=== PATIENT | male | born 1970 | race Caucasian/White ===

== ENCOUNTER 2025-06-21 15:00 | Emergency (ER) | payer OTHER, SELFPAY ==
--- NOTE | ~2025-06-21 | XR_ITS ---
XR lumbar spine 2-3V Indication: Low back pain; no injury Comparison: None Findings: Dextroconvex scoliosis. Moderate loss of vertebral height throughout. No acute fracture or subluxation. Moderate to severe loss of disc height throughout. Soft tissues unremarkable Impression: No acute abnormality. Reviewed, dictated and finalized at location P. Impression: No acute abnormality.
[2025-06-21 15:30] VITALS: BP 155/83; PULSE 97; RESP 16; TEMP 36.9; O2SAT 97
--- NOTE | 2025-06-21 15:48 | ED_ITS ---
HPI - Back Pain/Injury General Chief Complaint: Back Pain/Injury Stated Complaint: back pain. worse today Time Seen by Provider: 06/21/25 15:48 Focused HPI: Severe back pain for the past four days. He first noted that it was hurting while sitting at rest. He is currently residing at a prison and thinks he may have strained his back attempting to get dressed. Pain is in low back, is present all the time and does not get better. It stays in one spot without radiation. No urinary symptoms of burning, urgency, frequency. No rad iation of pain down the legs. No loss of bowel or bladder control. No saddle anesthesia. He denies any acute injury/trauma or enciting event. The doctor at the prison prescribed a muscle relaxer and a lidocaine patch that do not help the pain at all. GENERAL: Well-appearing, well-nourished, and in no acute distress. HEAD: Normocephalic, atraumatic NEURO: ?Alert and oriented x3. Grossly intact, non-focal exam. Knee jerk reflexes intact at 2+ bilaterally. No clonus. Intact sensation. EXTREMITIES: Diabetic wound with post op shoe present. MUSCULOSKELETAL: Low back pain, both midline lumbar and paraspinal without palpable spasm. Patient screened in triage and initial orders placed.? ?Additional care and disposition to be based upon?diagnostic testing and treatment. Source: patient Mode of arrival: ambulatory Limitations: no limitations History of Present Illness HPI Narrative: This is a pleasant 54 year old male pt who comes to the ER from a local prison where he resides with complaints of low back pain. No acute injury/trauma or enciting events. Pt has pain in the low back and the muscle relaxers and lidoderm patches that are being used at the prison is not relieving his pain. He has no loss of bowel or bladder control and he has no saddle anesthesia. Movement makes the pain worse. No CP/Dyspnea/N/V. Related Data Allergies Allergy/AdvReac Type Severity Reaction Status Date / Time No Known Allergies Allergy Verified 06/21/25 15:04 Review of Systems Review of Systems: All systems reviewed & are unremarkable except as noted in HPI and below Exam Const: General: healthy appearing, no acute distress and alert Nutritional Appearance: well nourished Orientation/consciousness: patient oriented x3 Limitations: no limitations HENMT: Head: normal to inspection Mouth: Yes Normal oral and palatal mucosa present and Yes moist mucous membranes Eyes: Conjunctivae: conjunctivae normal Neck: Neck: normal visual inspection, no lymphadenopathy and no meningeal signs Other: Full active range of motion in a supple manner Chest: Other: Non tender to palpation. Resp: Effort & Inspection: normal respiratory effort Auscultation: clear to auscultation bilaterally Cardio: Rate: regular rate Rhythm: regular rhythm Heart sounds: no murmurs GI: GI Palp: Yes Soft to palpation and No Tenderness to palpation present (GI) Auscultation: normal bowel sounds Back/Spine/Pelvis: Back: no CVA tenderness Other: Lumbar paraspinal tenderness to palpation without spasm. He has no midline tenderness/stepoff/crepitus/edema. Skin: General skin exam: normal color Rashes: no rashes Wounds: no wounds Neuro: General: patient oriented x3, moves all extremities, no meningeal signs and no focal motor deficits Speech: normal speech Gait exam (Neuro): Normal gait present Extrem: General: normal to inspection, no clubbing, cyanosis or edema and no pedal edema Psych: Mental Status: mental status grossly normal Affect: normal affect Course Course Emergency Course: Differential diagnosis includes but not limited to: Lumbar spondylosis, low back pain, spondylolisthesis, muscle spasm VSS Imaging was performed with L-spine xray and is without any acute abnormality. Pt was medicated for pain and is stable for discharge to home at this time. He is advised to continue with his lidoderm patches, continue with muscle relaxers and I will give a limited amount of Lancing to take at home. Discharged at this time in stable condition. Vital Signs Vital signs: Vital Signs Temperature 98.4 F 06/21/25 15:30 Pulse Rate 97 06/21/25 15:30 Respiratory Rate 16 06/21/25 15:30 Blood Pressure 155/83 H 06/21/25 15:30 Pulse Oximetry 97 06/21/25 15:30 Oxygen Delivery Room Air 06/21/25 15:30 Temperature 98.4 F 06/21/25 15:30 Pulse Rate 97 06/21/25 15:30 Respiratory Rate 16 06/21/25 15:30 Blood Pressure 155/83 H 06/21/25 15:30 Pulse Oximetry 97 06/21/25 15:30 Oxygen Delivery Room Air 06/21/25 15:30 MDM - Back Pain/Injury MDM Narrative Medical decision making narrative: See ED Course Lab Data Labs: Lab Results 06/21/25 Range/Units 17:18 Urine Color Pending Urine Appearance Pending Urine pH Pending Ur Specific [place] Pending Urine Protein Pending Urine Glucose (UA) Pending Urine Ketones Pending Ur Blood (Man) Pending Urine Nitrate Pending Urine Bilirubin Pending Urine Urobilinogen Pending Leukocyte Esterase Rfl Pending Imaging Data Radiologist's impression: ITS Impressions Lumbar Spine X-Ray 06/21/25 16:30 Impression: No acute abnormality. Discharge Plan Discharge Clinical Impression: Strain of lumbar region Patient Disposition: SNF Condition: Stable Instructions: Back Pain (ED) Additional Instructions: Please take all medications as ordered. Follow up with PCP in the next few days. If any new or worsening symptoms, return to the ER. Patient Language: Montenegrin Prescriptions: New hydrocodone-acetaminophen 5-325 mg tablet 1 tablet PO Q6H PRN (Reason: pain) 3 Days Qty: 12 0RF Follow-up/Referrals: PHYSICIAN NOT ON STAFF,NONSTAFF [Primary Care Provider] Stand Alone Forms: Long-Term Discharge Time of Disposition: 17:54
--- OUTSIDE RECORDS SUMMARY | 2025-06-21 16:38 | XMS_ITS | Clinical Summary ---
Author Organization [facility] Address [address] [place] [address] Care Team Providers Care Churn Driller Helper Name Role Phone Diaz Khoury CLARK DRIVER Unavailable [phone] Diaz Khoury CLARK DRIVER Unavailable [phone] Dalton Mahoney MD Primary Care Provi jaden Allergies No known active allergies Medications metFORMIN (GLUCOPHAGE) 1,000 mg tablet Take 1 tablet (1,000 mg total) by mouth 2 (two) times a day with meals Active naproxen (NAPROSYN) 500 mg tablet Take 1 tablet (500 mg total) by mouth 2 (two) times a day with meals 30 tablet 1 Active miconazole 2 % cream Application Site: feet and between the toes (Description and Location) 9 Active glucagon 1 mg injection 1 Active atorvastatin (LIPITOR) 40 mg tablet Take 1 tablet (40 mg total) by mouth daily 30 tablet 11 5 04/20/20 26 Active insulin glargine 100 unit/mL (3 mL) pen for injection Inject 24 Units under the skin nightly 5 Active insulin lispro (HumaLOG, ADMELOG) 100 unit/mL pen for injectionIndica tions:type 2 diabetes mellitus Inject 8 Units under the skin 3 (three) times a day with meals 5 Active blood-glucose meter kit Use as directed. 1 kit 5 Active lancets misc Use as directed up to 4 times a day. 100 each 1 5 Active OneTouch Verio test strips strip Use as directed up to four times a day. 100 each 1 5 Active alcohol swabs (Alcohol Wipes) pads, medicated Use as directed. 100 each 5 Active amoxicillin (AMOXIL) 500 mg tablet/capsuleI ndications:Bone /Joint Infection Take 1 tablet/capsule (500 mg total) by mouth every 12 (twelve) hours for 28 days 56 tablet/capsu le 5 07/01/20 25 Active cefTRIAXone (ROCEPHIN) syringeIndicati ons:Skin/Soft Tissue Infection Infuse 20 mL (2,000 mg total) IV daily for 5 minutes at 240 mL/hr 42 Syringe 5 05/28/20 25 metroNIDAZOLE (FLAGYL) 500 mg tabletIndicatio ns:Bone/Joint Infection Take 1 tablet (500 mg total) by mouth 2 (two) times a day 84 tablet 5 05/27/20 25 Active Problems Problem Noted Date Diagnosed Date Reduced mobility 04/11/2025 Acute hematogenous osteomyelitis of right foot 0 04/10/2025 Pseudohyponatremia 04/08/2025 History of DVT (deep vein thrombosis) 04/08/2025 Type 2 diabetes mellitus with hyperglycemia 03/26 Diabetic neuropathy associat ed with type 2 diabetes mellitus 04/08/2025 Normocytic anemia 04/08/2025 Social problem 04/08/2025 Mild protein-calorie malnutrition 04/08/2025 Foot infection 04/07/2025 Family history of colon cancer in mother 021 Overview (07/03/2021): Added automatically from request for surgery [id number] Positive colorectal cancer screening using Colog uard test 07/03/2021 Overview (07/03/2021): Added automatically from request for surgery [id number] Encounter for screening colonoscopy 07/03/2021 Overview (07/03/2021): Added automatically from request for surgery [id number] Hypoglycemia 06/15/2019 Dyslipidemia 03/10/2019 Hypomagnesemia 02/07/2019 Thrombocytopenia 02/07/2019 Cellulitis of left lower extremity 02/06/2019 Onychomycosis of left great toe 02/06/2019 Chronic deep vein thrombosis (DVT) of femoral vein of left lower extremity 05/26/2017 Chronic deep vein thrombosis (DVT) of popliteal vein of left lower extremity 05/26/2017 Class 1 obesity due to exces s calories with serious comorbidity and body mass index (BMI) of 33.0 to 33.9 in adult 05/26/2017 Supratherapeutic INR 05/26/2017 Type 2 diabetes mellitus wit h diabetic polyneuropathy, with long-term current use of insulin 05/26/2017 VTE (venous thromboembolism) 05/14/2017 Encounters Date Type Department Care Team Description 06/03/2025 1:15 PM CDT Office Visit [facility] [address] [place] [address] [address] [place] [address] Richard Hewitt MD Other acute osteomyelitis of right foot (Primary Dx); GBS (group B streptococcus) infection 06/02/2025 Orders Only [facility] [address] [place] [phone] ProviderMagalys MD 05/17/2025 Orders Only [facility] [address] [place] [phone] Magalys Valenzuela MD 05/13/2025 Orders Only [facility] [address] [place] [address] ProviderMagalys MD 04/20/2025 Documentation [facility] [address] [place] [address] [address] [place] [address] Lorna Vásquez LPN [facility] ([place]) 04/12/2025 1:00 PM CDT - 04/12/2025 2:00 PM CDT Surgery [facility] Operating Room [address] [place] [address] Oliver Espinosa, DPSusan DEBRIDEMENT OF INFECTED TISSUE AND BONE RIGHT FOOT 04/12/2025 12:56 PM CDT Anesthesia Event [facility] Operating Room [address] [place] [address] Roman Ling MD 04/07/2025 3:05 PM CDT - 04/19/2025 3:38 PM CDT Hospital Encounter [facility] IMU [address] [place] [address] Robert Arreola MD Richards, MD Emiliano Jimenez Jr., Deborah L F D, Viviana Peoples MD Foot infection (Primary Dx); Uncontrolled other specified diabetes mellitus with hyperglycemia; Acute hematogenous osteomyelitis of right foot (HCC); Type 2 diabetes mellitus with hyperglycemia, with long-term current use of insulin (HCC); Diabetic neuropathy associated with type 2 diabetes mellitus (HCC); Pseudohyponatremia; History of DVT (deep vein thrombosis); Normocytic anemia; Mild protein-calorie malnutrition; Social problem; Type 2 diabetes mellitus with diabetic polyneuropathy, with long-term current use of insulin (HCC); Cellulitis of left lower extremity Discharge Disposition: Discharge to SNF from Last 3 Months Surgical History Surgery Date Site/Laterality Comments CARDIAC STENT PLACEMENT Medical History Medical History Date Comments Deep vein thrombosis (HCC) Peripheral neuropathy Diabetes mellitus Family History Medical History Relation Name Comments Drug abuse Father Diabetes Mother Hypertension Mother Alcohol abuse Other Arthritis Other Cancer Other Clotting disorder Other Heart disease Other Stroke Other Relation Name Status Comments Father Mother Alive Other Social History Tobacco Use Types Packs/Day Years Used Date Smoking Tobacco: Never Smokeless Tobacco: Never Alcohol Use Standard Drinks/Week Comments No 0 (1 standard drink = 0.6 oz pur e alcohol) AUDIT-C Answer Date Recorded Q1: How often do you have a drink containing alc ohol? Never 04/20/2021 Average Number of Drinks Not on file 021 Frequency of Binge Drinking Not on file 03/27 Social Connection and Isolation Panel Answer Date Recorded In a typical week, how many times do you talk on the phone with family, friends, or neighbors? Once a week 04/08/2025 How often do you get together with friends or re latives? Once a week 04/08/2025 How often do you attend zoroastrian or adventist serv ices? Never 04/08/2025 Do you belong to any clubs o r organizations such as zoroastrian groups, unions, fraternal or athletic groups, or school groups? No 04/08/2025 How often do you attend meet ings of the clubs or organizations you belong to? Never 04/08/2025 Are you , , di vorced, , never , or living with a partner? Never 04/08/2025 Overall Financial Resource Strain (CARDIA) Answe r Date Recorded How hard is it for you to pa y for the very basics like food, housing, medical care, and heating? Very hard 04/08/2025 Hunger Vital Sign Answer Date Recorded Within the past 12 months, y ou worried that your food would run out before you got the money to buy more. Sometimes true Within the past 12 months, t he food you bought just didn't last and you didn't have money to get more. Sometimes true PRAPARE - Transportation Answer Date Re corded In the past 12 months, has l ack of transportation kept you from medical appointments or from getting medications? No 03/26 In the past 12 months, has l ack of transportation kept you from meetings, work, or from getting things needed for daily living? No 04/08/2025 Housing Stability Vital Sign Answer Tyler e Recorded In the last 12 months, was t here a time when you were not able to pay the mortgage or rent on time? No 04/08/2025 In the past 12 months, how m any times have you moved where you were living? 0 04/08/2025 At any time in the past 12 m onths, were you homeless or living in a longterm (including now)? No 04/08/2025 [facility] Utilities Answer Date Recorded In the past 12 months has e Access [employer], gas, oil, or water [employer] threatened to shut off services in your home? No 04/08/2025 Personal Safety Answer Date Recorded Have you ever been in or are you currently in a harmful physical or emotional relationship or is someone making you feel afraid or unsafe? 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 Gender Identity Not on file Sexual Orientation Not on file Obstetrics History Last Filed Vital Signs Vital Sign Reading Time Taken Comments Blood Pressure 125/72 04/19/2025 11:00 AM CDT Pulse 83 04/19/2025 11:00 AM CDT Temperature 36.1 C (97 F) 06/03/2025 1:32 PM CDT Respiratory Rate 18 04/19/2025 11:00 AM CDT Oxygen Saturation 98% 04/19/2025 11:00 AM CDT Inhaled Oxygen Concentration - - Weight 127.9 kg (282 lb) 06/03/2025 1:32 PM CDT Height 198.1 cm (6' 6) 06/03/2025 1:32 PM CDT Body Mass Index 32.59 06/03/2025 1:32 PM CDT Plan of Treatment Health Maintenance Due Date Last Done Comments Albumin Creatinine Ratio, Urine 1971 Depression Screening 1971 Hepatitis C Screening 1971 Prostate Cancer Screening-PSA 1971 Foot Exam 1971 Lipid Panel 1971 DTaP/Tdap/Td Vaccine (1 - Tdap) 1982 Hepatitis B Screening 1989 Regular Well Visit/Exam 18-64 1989 Pneumococcal vaccine <65 (2 of 2 - PCV) 05/27/2018 05/27/2017, 05/27/2017 Zoster Vaccine (1 of 2) 2021 Dilated Eye Exam 06/07/2022 06/07/2021 Covid-19 Vaccine (3 - 2024-2 6 season) 2025 12/19/2020, 11/21/2020 Influenza Vaccine (#1) 2025 05/27/2017, 2016 Hemoglobin A1C 10/09/2025 04/08/2025, 04/25/2017 eGFR 04/19/2026 04/19/2025, 03/27, 04/17/2025, Additional history exists Colon Cancer Screening-Colonoscopy 10/10/20312021 Procedures Procedure Name Priority Date/Time Associated Diagnosis Comments CBC WITH AUTO DIFFERENTIAL Routine 05/31/2025 8:51 AM CDT BASIC METABOLIC PANEL Routine 05/31/2025 8:51 AM CDT CBC WITH AUTO DIFFERENTIAL Routine 05/12/2025 11:48 AM CDT BASIC METABOLIC PANEL Routine 05/12/2025 11:48 AM CDT CBC WITH AUTO DIFFERENTIAL Routine 05/12/2025 10:00 AM CDT CBC WITH AUTO DIFFERENTIAL Routine 05/12/2025 9:59 AM CDT POCT GLUCOSE DEVICE Routine 04/19/2025 1 1:06 AM CDT POCT GLUCOSE DEVICE Routine 04/19/2025 7 :51 AM CDT EGFR Routine 04/19/2025 5:38 AM CDT DIFFERENTIAL AUTO Routine 04/19/2025 5:3 8 AM CDT CBC WITH AUTO DIFFERENTIAL Routine 04/19/2025 5:38 AM CDT BASIC METABOLIC PANEL Routine 04/19/2025 5:38 AM CDT POCT GLUCOSE DEVICE Routine 04/19/2025 3 :20 AM CDT POCT GLUCOSE DEVICE Routine 04/18/2025 8 :43 PM CDT POCT GLUCOSE DEVICE Routine 04/18/2025 4 :48 PM CDT POCT GLUCOSE DEVICE Routine 04/18/2025 1 1:55 AM CDT POCT GLUCOSE DEVICE Routine 04/18/2025 7 :45 AM CDT EGFR Routine 04/18/2025 5:31 AM CDT DIFFERENTIAL AUTO Routine 04/18/2025 5:3 1 AM CDT CBC WITH AUTO DIFFERENTIAL Routine 04/18/2025 5:31 AM CDT BASIC METABOLIC PANEL Routine 04/18/2025 5:31 AM CDT POCT GLUCOSE DEVICE Routine 04/18/2025 3 :28 AM CDT POCT GLUCOSE DEVICE Routine 04/17/2025 8 :35 PM CDT POCT GLUCOSE DEVICE Routine 04/17/2025 5 :17 PM CDT POCT GLUCOSE DEVICE Routine 04/17/2025 1 1:58 AM CDT POCT GLUCOSE DEVICE Routine 04/17/2025 8 :01 AM CDT EGFR Routine 04/17/2025 5:42 AM CDT DIFFERENTIAL AUTO Routine 04/17/2025 5:4 2 AM CDT CBC WITH AUTO DIFFERENTIAL Routine 04/17/2025 5:42 AM CDT BASIC METABOLIC PANEL Routine 04/17/2025 5:42 AM CDT POCT GLUCOSE DEVICE Routine 04/17/2025 3 :02 AM CDT POCT GLUCOSE DEVICE Routine 04/16/2025 9 :15 PM CDT POCT GLUCOSE DEVICE Routine 04/16/2025 4 :53 PM CDT POCT GLUCOSE DEVICE Routine 04/16/2025 1 1:55 AM CDT POCT GLUCOSE DEVICE Routine 04/16/2025 8 :19 AM CDT EGFR Routine 04/16/2025 6:28 AM CDT DIFFERENTIAL AUTO Routine 04/16/2025 6:2 8 AM CDT CBC WITH AUTO DIFFERENTIAL Routine 04/16/2025 6:28 AM CDT BASIC METABOLIC PANEL Routine 04/16/2025 6:28 AM CDT POCT GLUCOSE DEVICE Routine 04/16/2025 2 :01 AM CDT POCT GLUCOSE DEVICE Routine 04/15/2025 8 :29 PM CDT POCT GLUCOSE DEVICE Routine 04/15/2025 4:44 PM CDT POCT GLUCOSE DEVICE Routine 04/15/2025 1 1:52 AM CDT POCT GLUCOSE DEVICE Routine 04/15/2025 7 :57 AM CDT EGFR Routine 04/15/2025 5:38 AM CDT DIFFERENTIAL AUTO Routine 04/15/2025 5:3 8 AM CDT CBC WITH AUTO DIFFERENTIAL Routine 04/15/2025 5:38 AM CDT BASIC METABOLIC PANEL Routine 04/15/2025 5:38 AM CDT POCT GLUCOSE DEVICE Routine 04/15/2025 2 :06 AM CDT POCT GLUCOSE DEVICE Routine 04/14/2025 8 :46 PM CDT POCT GLUCOSE DEVICE Routine 04/14/2025 4 :49 PM CDT ERYTHROCYTE SEDIMENTATION RATE Routine 04/14/2025 4:36 PM CDT POCT GLUCOSE DEVICE Routine 04/14/2025 1 1:51 AM CDT POCT GLUCOSE DEVICE Routine 04/14/2025 7 :57 AM CDT EGFR Routine 04/14/2025 2:38 AM CDT DIFFERENTIAL AUTO Routine 04/14/2025 2:3 8 AM CDT CBC WITH AUTO DIFFERENTIAL Routine 04/14/2025 2:38 AM CDT BASIC METABOLIC PANEL Routine 04/14/2025 2:38 AM CDT POCT GLUCOSE DEVICE Routine 04/14/2025 2 :31 AM CDT POCT GLUCOSE DEVICE Routine 04/13/2025 8 :23 PM CDT POCT GLUCOSE DEVICE Routine 04/13/2025 4 :55 PM CDT POCT GLUCOSE DEVICE Routine 04/13/2025 1 1:56 AM CDT POCT GLUCOSE DEVICE Routine 04/13/2025 8 :00 AM CDT POCT GLUCOSE DEVICE Routine 04/13/2025 3 :15 AM CDT EGFR Routine 04/13/2025 2:56 AM CDT DIFFERENTIAL AUTO Routine 04/13/2025 2:5 6 AM CDT CBC WITH AUTO DIFFERENTIAL Routine 04/13/2025 2:56 AM CDT BASIC METABOLIC PANEL Routine 04/13/2025 2:56 AM CDT POCT GLUCOSE DEVICE Routine 04/12/2025 8 :21 PM CDT POCT GLUCOSE DEVICE Routine 04/12/2025 4 :23 PM CDT SURGICAL PATHOLOGY Routine 04/12/2025 2: 30 PM CDT Foot infection POCT GLUCOSE DEVICE Routine 04/12/2025 1 :49 PM CDT TISSUE AEROBIC AND ANAEROBIC CULTURE AND GRAM STAIN Routine 04/12/2025 1:45 PM CDT DEBRIDEMENT WOUND 04/12/2025 12: 41 PM CDT Foot infection POCT GLUCOSE DEVICE Routine 04/12/2025 1 2:25 PM CDT POCT GLUCOSE DEVICE Routine 04/12/2025 7 :35 AM CDT EGFR Routine 04/12/2025 2:33 AM CDT DIFFERENTIAL AUTO Routine 04/12/2025 2:3 3 AM CDT CBC WITH AUTO DIFFERENTIAL Routine 04/12/2025 2:33 AM CDT BASIC METABOLIC PANEL Routine 04/12/2025 2:33 AM CDT POCT GLUCOSE DEVICE Routine 04/12/2025 1 :56 AM CDT POCT GLUCOSE DEVICE Routine 04/11/2025 8 :21 PM CDT POCT GLUCOSE DEVICE Routine 04/11/2025 4 :54 PM CDT POCT GLUCOSE DEVICE Routine 04/11/2025 1 1:46 AM CDT POCT GLUCOSE DEVICE Routine 04/11/2025 7 :58 AM CDT EGFR Routine 04/11/2025 2:57 AM CDT DIFFERENTIAL AUTO Routine 04/11/2025 2:5 7 AM CDT CBC WITH AUTO DIFFERENTIAL Routine 04/11/2025 2:57 AM CDT BASIC METABOLIC PANEL Routine 04/11/2025 2:57 AM CDT POCT GLUCOSE DEVICE Routine 04/11/2025 1 :52 AM CDT POCT GLUCOSE DEVICE Routine 04/10/2025 8 :42 PM CDT POCT GLUCOSE DEVICE Routine 04/10/2025 4 :39 PM CDT POCT GLUCOSE DEVICE Routine 04/10/2025 1 2:04 PM CDT POCT GLUCOSE DEVICE Routine 04/10/2025 8 :00 AM CDT EGFR Routine 04/10/2025 3:07 AM CDT DIFFERENTIAL AUTO Routine 04/10/2025 3:0 7 AM CDT CBC WITH AUTO DIFFERENTIAL Routine 04/10/2025 3:07 AM CDT BASIC METABOLIC PANEL Routine 04/10/2025 3:07 AM CDT POCT GLUCOSE DEVICE Routine 04/10/2025 1 :48 AM CDT POCT GLUCOSE DEVICE Routine 04/09/2025 8 :45 PM CDT POCT GLUCOSE DEVICE Routine 04/09/2025 5 :03 PM CDT US ARTERIAL DOPPLER LOWER EXTREMITY BILATERAL IP Routine 04/09/2025 3:07 PM CDT POCT GLUCOSE DEVICE Routine 04/09/2025 1 2:08 PM CDT EGFR Routine 04/09/2025 8:24 AM CDT DIFFERENTIAL AUTO Routine 04/09/2025 8:2 4 AM CDT VANCOMYCIN LEVEL TROUGH Timed 04/09/2025 8:24 AM CDT CBC WITH AUTO DIFFERENTIAL Routine 04/09/2025 8:24 AM CDT BASIC METABOLIC PANEL Routine 04/09/2025 8:24 AM CDT POCT GLUCOSE DEVICE Routine 04/09/2025 7 :52 AM CDT POCT GLUCOSE DEVICE Routine 04/09/2025 2 :02 AM CDT POCT GLUCOSE DEVICE Routine 04/08/2025 8 :42 PM CDT POCT GLUCOSE DEVICE Routine 04/08/2025 4 :26 PM CDT MRI FOOT RIGHT W WO CONTRAST ED 04/08/2025 4:04 PM CDT POCT GLUCOSE DEVICE Routine 04/08/2025 1 1:50 AM CDT POCT GLUCOSE DEVICE Routine 04/08/2025 7 :56 AM CDT FOLATE Add-On 04/08/2025 7:10 AM CDT VITAMIN B12 Add-On 04/08/2025 7:10 AM CDT IRON PROFILE W/ IBC Add-On 04/08/2025 7 :10 AM CDT HEMOGLOBIN A1C Add-On 04/08/2025 7:10 AM CDT EGFR Routine 04/08/2025 3:03 AM CDT DIFFERENTIAL AUTO Routine 04/08/2025 3:0 3 AM CDT CBC WITH AUTO DIFFERENTIAL Routine 04/08/2025 3:03 AM CDT BASIC METABOLIC PANEL Routine 04/08/2025 3:03 AM CDT POCT GLUCOSE DEVICE Routine 04/08/2025 2 :06 AM CDT POCT GLUCOSE DEVICE Routine 04/07/2025 1 1:16 PM CDT POCT GLUCOSE DEVICE Routine 04/07/2025 9 :12 PM CDT POCT GLUCOSE DEVICE Routine 04/07/2025 7 :22 PM CDT BLOOD CULTURE STAT 04/07/2025 6:40 PM CDT POCT GLUCOSE DEVICE Routine 04/07/2025 4 :51 PM CDT XR FOOT LEFT 3 OR MORE VIEWS ED 04/07/2025 4:37 PM CDT XR FOOT RIGHT 3 OR MORE VIEWS ED 04/07/2025 4:37 PM CDT US VEIN DUPLEX LOWER EXTREMITY BILATERAL COMPLETE ED 04/07/2025 4:36 PM CDT EGFR STAT 04/07/2025 2:35 PM CDT DIFFERENTIAL AUTO STAT 04/07/2025 2:3 5 PM CDT SEPSIS LACTATE WITH REFLEX STAT 04/07/2025 2:35 PM CDT COMPREHENSIVE METABOLIC PANEL STAT 04/07/2025 2:35 PM CDT CBC WITH AUTO DIFFERENTIAL STAT 04/07/2025 2:35 PM CDT BLOOD CULTURE STAT 04/07/2025 2:35 PM CDT CRP (ACUTE PHASE) STAT 04/07/2025 2:3 3 PM CDT COLONOSCOPY 10/10/2021 9:12 AM AMBULATORY TECHNOLOGIST DIABETIC EYE EXAM Routine 06/07/2021 from Last 3 Months or Most Recently Relevant to Health Maintenance Results * CBC with auto differential (05/31/2025 8:51 AM CDT) Blood Historical Provider LAB BLOOD ORDERABLES Laura conte Result EXTERNAL LAB * Basic metabolic panel (05/31/2025 8:51 AM CDT) Blood Historical Provider MD LAB BLOOD ORDERABLES Laura l Result Performing Organization Address City/[facility] Co de Phone Number EXTERNAL LAB * CBC with auto differential (05/12/2025 11:48 AM CDT) Blood Result [facility] Provider MD LAB BLOOD ORDERABLES Laura l Result Performing Organization Address City/[facility] Co de Phone Number EXTERNAL LAB * Basic metabolic panel (05/12/2025 11:48 AM CDT) Blood Result [facility] Provider MD LAB BLOOD ORDERABLES Laura l Result Performing Organization Address [facility] Phone Number EXTERNAL [facility] * CBC with auto differential (05/12/2025 10:00 AM CDT) Blood Result [facility] Provider MD LAB BLOOD ORDERABLES Laura l Result Performing Organization Address [facility] Phone Number EXTERNAL LAB * CBC with auto differential (05/12/2025 9:59 AM CDT) Blood Result [facility] Provider MD LAB BLOOD ORDERABLES Laura l Result * POCT glucose (04/19/2025 11:06 AM CDT) Glucose, POC 93 70 - 199 mg/dL Blood 04/19/2025 11:0 6 AM CDT 04/19/2025 11:06 AM CDT Result [facility] Viviana Barber MD LAB POCT ORDERABLES - DEVICE Fin al Result Performing Organization Address City/[facility] Co de Phone Number ANAND [facility] ([place]) 1 [facility] Department [place] [address] * POCT glucose (04/19/2025 7:51 AM CDT) Glucose, POC 140 70 - 199 mg/dL Blood 04/19/2025 7:51 AM CDT 04/19/2025 7:51 AM CDT us Viviana Barber MD LAB POCT ORDERABLES - DEVICE Fin al Result Performing Organization Address City/[facility]/ZIP Co de Phone Number ANAND [facility] ([place]) [address] [facility] [place] [address] * eGFR (04/19/2025 5:38 AM CDT) [facility] eGFR >90 >=60 mL/min/1. 73 m2 Comment: Interpretive Data Reference Interval Normal >/= 90 mL/min/1.73m2 Mildly decreased* 60 - 89 mL/min/1.73m2 Mildly to moderately decreased 45 - 59 mL/min/1.73m2 Moderately to severely decreased 30 - 44 mL/min/1.73m2 Severely decreased 15 - 29 mL/min/1.73m2 Kidney Failure < 15 mL/min/1.73m2 *Relative to young adult level Estimated glomerular filtration rate is determined by the 2020 CKD-EPI equation recommended by the National Kidney Foundation (A Unifying Approach to GFR Estimation: Recommendations of the NKF-ASK Task Force on Reassessing the Inclusion of Race in Diagnosing Kidney Disease, JASN 2020). The CKD-EPI equation should not be used for patients with unstable renal function and has not been validated in children and those over 70. Current interpretive data was last reviewed 2021. Blood 04/19/2025 5:38 AM CDT 04/19/2025 5:46 AM CDT us Oliver Espinosa DPM LAB BLOOD ORDERABLES Final Result Performing Organization Address City/[facility]/ZIP Co de Phone Number ANAND [facility] ([place]) 1 [facility] Department [place] [place] [address] * Differential, auto (04/19/2025 5:38 AM CDT) Pathologist [facility] Neutrophil abs 2.02 1.50 - 6.50 K/cumm Imm gran abs 0.01 0.00 - 0.10 K/cumm [facility] ([place]) Lymphocyte abs 2.09 0.80 - 3.30 K/cumm [facility] ([place]) Monocyte abs 0.46 0.20 - 0.80 K/cumm [facility] ([place]) Eosinophil abs 0.28 0.00 - 0.50 K/cumm [facility] ([place]) Basophil abs 0.02 0.00 - 0.10 K/cumm [facility] ([place]) Neutrophil pct 41.5 % [facility] ([place]) Comment: Interpretive Data Percent cell count reference ranges are not reported, since discordance with absolute values may lead to misinterpretation of CBC data. Current Interpretive Data was last revised on 2017. Imm gran pct 0.2 % [facility] ([place]) Comment: Interpretive Data Percent cell count reference ranges are not reported, since discordance with absolute values may lead to misinterpretation of CBC data. Current Interpretive Data was last revised on 2017. Lymphocyte pct 42.8 % [facility] ([place]) Comment: Interpretive Data Percent cell count reference ranges are not reported, since discordance with absolute values may lead to misinterpretation of CBC data. Current Interpretive Data was last revised on 2017. Monocyte pct 9.4 % [facility] ([place]) Comment: Interpretive Data Percent cell count reference ranges are not reported, since discordance with absolute values may lead to misinterpretation of CBC data. Current Interpretive Data was last revised on 2017. Eosinophil pct 5.7 % [facility] ([place]) Comment: Interpretive Data Percent cell count reference ranges are not reported, since discordance with absolute values may lead to misinterpretation of CBC data. Current Interpretive Data was last revised on 2017. Basophil pct 0.4 % [facility] ([place]) Comment: Interpretive Data Percent cell count reference ranges are not reported, since discordance with absolute values may lead to misinterpretation of CBC data. Current Interpretive Data was last revised on 2017. Blood 04/19/2025 5:38 AM CDT 04/19/2025 5:46 AM CDT us Oliver C. Jesús DPM LAB BLOOD ORDERABLES Final Result [facility] ([place]) [address] [facility] [place] [address] * (ABNORMAL) CBC with auto differential (04/19/2025 5:38 AM CDT) WBC 4.88 3.80 - 9.90 K/cumm Hgb 11.4(L) 13.0 - 17.5 g/dL [facility] ([place]) Hct 35.4(L) 38.9 - 50.3 % [facility] ([place]) Plt 188 150 - 400 K/cumm [facility] ([place]) MPV 11.3 9.1 - 12.3 fL [facility] ([place]) RBC 4.27(L) 4.30 - 5.80 M/cumm [facility] ([place]) MCV 82.9 81.3 - 96.4 fL [facility] ([place]) MCH 26.7(L) 27.1 - 33.3 pg [facility] ([place]) MCHC 32.2(L) 32.3 - 35.7 g/dL [facility] ([place]) RDW CV 13.3 11.1 - 14.9 % [facility] ([place]) RDW SD 39.5 35.7 - 48.1 fL [facility] ([place]) NRBC abs 0.00 0.00 - 0.01 K/cumm [facility] ([place]) Blood 04/19/2025 5:38 AM CDT 04/19/2025 5:46 AM CDT Oliver Espinosa DPSusan LAB BLOOD ORDERABLES Final Result [facility] ([place]) 1 [facility] [address] * Basic metabolic panel (04/19/2025 5:38 AM CDT) Sodium 139 135 - 145 mmol/L [facility] ([place]) Potassium, pl 4.2 3.3 - 4.9 mmol/L [facility] ([place]) Chloride 103 97 - 110 mmol/L [facility] ([place]) CO2 25 22 - 32 mmol/L [facility] ([place]) Anion gap 11 2 - 15 mmol/L [facility] BUN 24 6 - 25 mg/dL [facility] ([place]) Creatinine 0.82 0.80 - 1.30 mg/dL [facility] ([place]) Glucose 121 70 - 199 mg/dL [facility] ([place]) Comment: Interpretive Data Fasting glucose >/= 126 mg/dl is diagnostic for diabetes. Fasting is defined as no caloric intake for at least 8 hours. Fasting glucose between 100 mg/dl to 125 mg/dl is diagnostic of prediabetes. In a patient with classic symptoms of hyperglycemia or hyperglycemic crisis, a random glucose >/= 200 mg/dl is diagnostic for diabetes. In the absence of unequivocal hyperglycemia, results should be confirmed by repeat testing. The classification and Diagnosis of Diabetes Diabetes Care 2021; 46: S19-S40. Current interpretive data was last revised 2022. Calcium 9.2 8.5 - 10.3 mg/dL [facility] ([place]) Blood 04/19/2025 5:38 AM CDT 04/19/2025 5:46 AM CDT us Oliver Espinosa DPM LAB BLOOD ORDERABLES Final Result Performing Organization Address City/[facility]/ZIP Co de Phone Number [facility] ([place]) [address] [facility] [place] [address] * POCT glucose (04/19/2025 3:20 AM CDT) Glucose, POC 134 70 - 199 mg/dL Blood 04/19/2025 3:20 AM CDT 04/19/2025 3:20 AM CDT us Viviana Barber MD LAB POCT ORDERABLES - DEVICE Fin al Result [facility] ([place]) 1 [facility] [place] [address] * POCT glucose (04/18/2025 8:43 PM CDT) Glucose, POC 107 70 - 199 mg/dL Blood 04/18/2025 8:43 PM CDT 04/18/2025 8:43 PM CDT Viviana Barber MD LAB POCT ORDERABLES - DEVICE Fin al Result Performing Organization Address City/[facility]/ZIP Co de Phone Number [facility] ([place]) [address] [facility] [place] [address] * POCT glucose (04/18/2025 4:48 PM CDT) Glucose, POC 166 70 - 199 mg/dL Blood 04/18/2025 4:48 PM CDT 04/18/2025 4:48 PM CDT Viviana Barber MD LAB POCT ORDERABLES - DEVICE Fin al Result Performing Organization Address [facility] Co de Phone Number [facility] ([place]) [address] [facility] [place] [employer] [address] * POCT glucose (04/18/2025 11:55 AM CDT) Glucose, POC 110 70 - 199 mg/dL Blood 04/18/2025 11:5 5 AM CDT 04/18/2025 11:55 AM CDT Viviana Barber MD LAB POCT ORDERABLES - DEVICE Fin al Result Performing Organization Address City/[facility] Co de Phone Number [facility] ([place]) [address] [facility] [place] [address] * POCT glucose (04/18/2025 7:45 AM CDT) Glucose, POC 153 70 - 199 mg/dL Blood 04/18/2025 7:45 AM CDT 04/18/2025 7:45 AM CDT us Viviana Barber MD LAB POCT ORDERABLES - DEVICE Fin al Result [facility] ([place]) 1 [facility] [place] [employer] [place] [address] * eGFR (04/18/2025 5:31 AM CDT) eGFR >90 >=60 mL/min/1. 73 m2 Comment: Interpretive Data Reference Interval Normal >/= 90 mL/min/1.73m2 Mildly decreased* 60 - 89 mL/min/1.73m2 Mildly to moderately decreased 45 - 59 mL/min/1.73m2 Moderately to severely decreased 30 - 44 mL/min/1.73m2 Severely decreased 15 - 29 mL/min/1.73m2 Kidney Failure < 15 mL/min/1.73m2 *Relative to young adult level Estimated glomerular filtration rate is determined by the 2020 CKD-EPI equation recommended by the National Kidney Foundation (A Unifying Approach to GFR Estimation: Recommendations of the NKF-ASK Task Force on Reassessing the Inclusion of Race in Diagnosing Kidney Disease, JASN 2020). The CKD-EPI equation should not be used for patients with unstable renal function and has not been validated in children and those over 70. Current interpretive data was last reviewed 2021. Blood 04/18/2025 5:31 AM CDT 04/18/2025 5:39 AM CDT us Oliver Espinosa DPM LAB BLOOD ORDERABLES Final Result [facility] ([place]) 1 [facility] [place] [employer] [address] * Differential, auto (04/18/2025 5:31 AM CDT) Neutrophil abs 1.82 1.50 - 6.50 K/cumm Imm gran abs 0.01 0.00 - 0.10 K/cumm [facility] ([place]) Lymphocyte abs 1.84 0.80 - 3.30 K/cumm [facility] ([place]) Monocyte abs 0.43 0.20 - 0.80 K/cumm [facility] ([place]) Eosinophil abs 0.17 0.00 - 0.50 K/cumm [facility] ([place]) Basophil abs 0.03 0.00 - 0.10 K/cumm [facility] ([place]) Neutrophil pct 42.3 % [facility] ([place]) Comment: Interpretive Data Percent cell count reference ranges are not reported, since discordance with absolute values may lead to misinterpretation of CBC data. Current Interpretive Data was last revised on 2017. Imm gran pct 0.2 % [facility] ([place]) Comment: Interpretive Data Percent cell count reference ranges are not reported, since discordance with absolute values may lead to misinterpretation of CBC data. Current Interpretive Data was last revised on 2017. Lymphocyte pct 42.8 % [facility] ([place]) Comment: Interpretive Data Percent cell count reference ranges are not reported, since discordance with absolute values may lead to misinterpretation of CBC data. Current Interpretive Data was last revised on 2017. Monocyte pct 10.0 % [facility] ([place]) Comment: Interpretive Data Percent cell count reference ranges are not reported, since discordance with absolute values may lead to misinterpretation of CBC data. Current Interpretive Data was last revised on 2017. Eosinophil pct 4.0 % [facility] ([place]) Comment: Interpretive Data Percent cell count reference ranges are not reported, since discordance with absolute values may lead to misinterpretation of CBC data. Current Interpretive Data was last revised on 2017. Basophil pct 0.7 % [facility] ([place]) Comment: Interpretive Data Percent cell count reference ranges are not reported, since discordance with absolute values may lead to misinterpretation of CBC data. Current Interpretive Data was last revised on 2017. Blood 04/18/2025 5:31 AM CDT 04/18/2025 5:39 AM CDT us Oliver Espinosa DPM LAB BLOOD ORDERABLES Final Result [facility] ([place]) 1 [facility] [place] [address] * (ABNORMAL) CBC with auto differential (04/18/2025 5:31 AM CDT) WBC 4.30 3.80 - 9.90 K/cumm Hgb 11.4(L) 13.0 - 17.5 g/dL [facility] ([place]) Hct 34.7(L) 38.9 - 50.3 % [facility] ([place]) Plt 183 150 - 400 K/cumm [facility] ([place]) MPV 11.1 9.1 - 12.3 fL [facility] ([place]) RBC 4.17(L) 4.30 - 5.80 M/cumm [facility] ([place]) MCV 83.2 81.3 - 96.4 fL [facility] ([place]) MCH 27.3 27.1 - 33.3 pg [facility] ([place]) MCHC 32.9 32.3 - 35.7 g/dL [facility] ([place]) RDW CV 13.2 11.1 - 14.9 % [facility] ([place]) RDW SD 39.5 35.7 - 48.1 fL [facility] ([place]) NRBC abs 0.00 0.00 - 0.01 K/cumm [facility] ([place]) Blood 04/18/2025 5:31 AM CDT 04/18/2025 5:39 AM CDT Oliver Espinosa DPM LAB BLOOD ORDERABLES Final Result [facility] ([place]) 1 [facility] [place] [address] * (ABNORMAL) Basic metabolic panel (04/18/2025 5:31 AM CDT) Pathologist [facility] Sodium 136 135 - 145 mmol/L [facility] ([place]) Potassium, pl 4.2 3.3 - 4.9 mmol/L [facility] ([place]) Chloride 103 97 - 110 mmol/L [facility] ([place]) CO2 26 22 - 32 mmol/L [facility] ([place]) Anion gap 7 2 - 15 mmol/L [facility] ([place]) BUN 24 6 - 25 mg/dL [facility] ([place]) Creatinine 0.79(L) 0.80 - 1.30 mg/dL [facility] ([place]) Glucose 144 70 - 199 mg/dL [facility] ([place]) Comment: Interpretive Data Fasting glucose >/= 126 mg/dl is diagnostic for diabetes. Fasting is defined as no caloric intake for at least 8 hours. Fasting glucose between 100 mg/dl to 125 mg/dl is diagnostic of prediabetes. In a patient with classic symptoms of hyperglycemia or hyperglycemic crisis, a random glucose >/= 200 mg/dl is diagnostic for diabetes. In the absence of unequivocal hyperglycemia, results should be confirmed by repeat testing. The classification and Diagnosis of Diabetes Diabetes Care 2021; 46: S19-S40. Current interpretive data was last revised 2022. Calcium 9.4 8.5 - 10.3 mg/dL [facility] ([place]) Blood 04/18/2025 5:31 AM CDT 04/18/2025 5:39 AM CDT us Oliver Espinosa DPM LAB BLOOD ORDERABLES Final Result [facility] ([place]) 1 [facility] [place] [employer] [place] [address] * POCT glucose (04/18/2025 3:28 AM CDT) Glucose, POC 151 70 - 199 mg/dL Blood 04/18/2025 3:28 AM CDT 04/18/2025 3:28 AM CDT us Viviana Barber MD LAB POCT ORDERABLES - DEVICE Fin al Result [facility] ([place]) 1 [facility] [place] [address] * POCT glucose (04/17/2025 8:35 PM CDT) Glucose, POC 135 70 - 199 mg/dL Blood 04/17/2025 8:35 PM CDT 04/17/2025 8:35 PM CDT us Viviana Barber MD LAB POCT ORDERABLES - DEVICE Fin al Result Performing Organization Address [facility] Co de Phone Number [facility] ([place]) [address] [place] [address] [place] [address] * POCT glucose (04/17/2025 5:17 PM CDT) Glucose, POC 105 70 - 199 mg/dL Blood 04/17/2025 5:17 PM CDT 04/17/2025 5:17 PM CDT us Viviana Barber MD LAB POCT ORDERABLES - DEVICE Fin al Result Performing Organization Address [facility] Co de Phone Number [facility] ([place]) [address] [facility] [place] [address] * POCT glucose (04/17/2025 11:58 AM CDT) Glucose, POC 143 70 - 199 mg/dL Blood 04/17/2025 11:5 8 AM CDT 04/17/2025 11:58 AM CDT us Viviana Barber MD LAB POCT ORDERABLES - DEVICE Fin al Result Performing Organization Address [facility] Co de Phone Number [facility] ([place]) [address] [facility] [place] [address] * POCT glucose (04/17/2025 8:01 AM CDT) Glucose, POC 153 70 - 199 mg/dL Blood 04/17/2025 8:01 AM CDT 04/17/2025 8:01 AM CDT us Viviana Barber MD LAB POCT ORDERABLES - DEVICE Fin al Result Performing Organization Address City/[facility]/ZIP Co de Phone Number [facility] ([place]) 1 [facility] [place] [address] * eGFR (04/17/2025 5:42 AM CDT) Pathologist [facility] eGFR >90 >=60 mL/min/1. 73 m2 Comment: Interpretive Data Reference Interval Normal >/= 90 mL/min/1.73m2 Mildly decreased* 60 - 89 mL/min/1.73m2 Mildly to moderately decreased 45 - 59 mL/min/1.73m2 Moderately to severely decreased 30 - 44 mL/min/1.73m2 Severely decreased 15 - 29 mL/min/1.73m2 Kidney Failure < 15 mL/min/1.73m2 *Relative to young adult level Estimated glomerular filtration rate is determined by the 2020 CKD-EPI equation recommended by the National Kidney Foundation (A Unifying Approach to GFR Estimation: Recommendations of the NKF-ASK Task Force on Reassessing the Inclusion of Race in Diagnosing Kidney Disease, JASN 2020). The CKD-EPI equation should not be used for patients with unstable renal function and has not been validated in children and those over 70. Current interpretive data was last reviewed 2021. Blood 04/17/2025 5:42 AM CDT 04/17/2025 5:47 AM CDT us Oliver Espinosa DPM LAB BLOOD ORDERABLES Final Result Performing Organization Address City/[facility]/ZIP Co de Phone Number [facility] ([place]) 1 [facility] [place] [address] * Differential, auto (04/17/2025 5:42 AM CDT) Neutrophil abs 2.16 1.50 - 6.50 K/cumm Imm gran abs 0.00 0.00 - 0.10 K/cumm [facility] ([place]) Lymphocyte abs 1.99 0.80 - 3.30 K/cumm [facility] ([place]) Monocyte abs 0.49 0.20 - 0.80 K/cumm [facility] ([place]) Eosinophil abs 0.21 0.00 - 0.50 K/cumm [facility] ([place]) Basophil abs 0.04 0.00 - 0.10 K/cumm [facility] ([place]) Neutrophil pct 44.2 % [facility] ([place]) Comment: Interpretive Data Percent cell count reference ranges are not reported, since discordance with absolute values may lead to misinterpretation of CBC data. Current Interpretive Data was last revised on 2017. Imm gran pct 0.0 % [facility] ([place]) Comment: Interpretive Data Percent cell count reference ranges are not reported, since discordance with absolute values may lead to misinterpretation of CBC data. Current Interpretive Data was last revised on 2017. Lymphocyte pct 40.7 % [facility] ([place]) Comment: Interpretive Data Percent cell count reference ranges are not reported, since discordance with absolute values may lead to misinterpretation of CBC data. Current Interpretive Data was last revised on 2017. Monocyte pct 10.0 % [facility] ([place]) Comment: Interpretive Data Percent cell count reference ranges are not reported, since discordance with absolute values may lead to misinterpretation of CBC data. Current Interpretive Data was last revised on 2017. Eosinophil pct 4.3 % [facility] ([place]) Comment: Interpretive Data Percent cell count reference ranges are not reported, since discordance with absolute values may lead to misinterpretation of CBC data. Current Interpretive Data was last revised on 2017. Basophil pct 0.8 % [facility] ([place]) Comment: Interpretive Data Percent cell count reference ranges are not reported, since discordance with absolute values may lead to misinterpretation of CBC data. Current Interpretive Data was last revised on 2017. Blood 04/17/2025 5:42 AM CDT 04/17/2025 5:47 AM CDT us Oliver Espinosa DPM LAB BLOOD ORDERABLES Final Result [facility] ([place]) 1 [facility] [place] [address] * (ABNORMAL) CBC with auto differential (04/17/2025 5:42 AM CDT) WBC 4.89 3.80 - 9.90 K/cumm Hgb 11.7(L) 13.0 - 17.5 g/dL [facility] ([place]) Hct 35.3(L) 38.9 - 50.3 % [facility] ([place]) Plt 181 150 - 400 K/cumm [facility] ([place]) MPV 11.0 9.1 - 12.3 fL [facility] ([place]) RBC 4.26(L) 4.30 - 5.80 M/cumm [facility] ([place]) MCV 82.9 81.3 - 96.4 fL [facility] ([place]) MCH 27.5 27.1 - 33.3 pg [facility] ([place]) MCHC 33.1 32.3 - 35.7 g/dL [facility] ([place]) RDW CV 13.1 11.1 - 14.9 % [facility] ([place]) RDW SD 39.3 35.7 - 48.1 fL [facility] ([place]) NRBC abs 0.00 0.00 - 0.01 K/cumm [facility] ([place]) Blood 04/17/2025 5:42 AM CDT 04/17/2025 5:47 AM CDT us Oliver Espinosa DPSusan LAB BLOOD ORDERABLES Final Result [facility] ([place] 1 [facility] [place] [address] * (ABNORMAL) Basic metabolic panel (04/17/2025 5:42 AM CDT) Sodium 138 135 - 145 mmol/L [facility] ([place]) Potassium, pl 4.3 3.3 - 4.9 mmol/L [facility] ([place]) Chloride 104 97 - 110 mmol/L [facility] ([place]) CO2 26 22 - 32 mmol/L [facility] ([place]) Anion gap 8 2 - 15 mmol/L [facility] ([place]) BUN 23 6 - 25 mg/dL [facility] ([place]) Creatinine 0.75(L) 0.80 - 1.30 mg/dL [facility] ([place]) Glucose 129 70 - 199 mg/dL [facility] ([place]) Comment: Interpretive Data Fasting glucose >/= 126 mg/dl is diagnostic for diabetes. Fasting is defined as no caloric intake for at least 8 hours. Fasting glucose between 100 mg/dl to 125 mg/dl is diagnostic of prediabetes. In a patient with classic symptoms of hyperglycemia or hyperglycemic crisis, a random glucose >/= 200 mg/dl is diagnostic for diabetes. In the absence of unequivocal hyperglycemia, results should be confirmed by repeat testing. The classification and Diagnosis of Diabetes Diabetes Care 2021; 46: S19-S40. Current interpretive data was last revised 2022. Calcium 8.8 8.5 - 10.3 mg/dL [facility] ([place]) Blood 04/17/2025 5:42 AM CDT 04/17/2025 5:47 AM CDT us Oliver Espinosa DPM LAB BLOOD ORDERABLES Final Result [facility] ([place]) [address] [facility] [place] [address] * POCT glucose (04/17/2025 3:02 AM CDT) Glucose, POC 135 70 - 199 mg/dL Blood 04/17/2025 3:02 AM CDT 04/17/2025 3:02 AM CDT us Viviana Barber MD LAB POCT ORDERABLES - DEVICE Fin al Result [facility] ([place]) [address] [facility] [place] [address] * POCT glucose (04/16/2025 9:15 PM CDT) Glucose, POC 128 70 - 199 mg/dL Blood 04/16/2025 9:15 PM CDT 04/16/2025 9:15 PM CDT us Viviana Barber MD LAB POCT ORDERABLES - DEVICE Fin al Result [facility] ([place]) [address] [facility] [place] [address] * POCT glucose (04/16/2025 4:53 PM CDT) Glucose, POC 129 70 - 199 mg/dL Blood 04/16/2025 4:53 PM CDT 04/16/2025 4:53 PM CDT us Viviana Barber MD LAB POCT ORDERABLES - DEVICE Fin al Result Performing Organization Address [facility] Co de Phone Number [facility] ([place]) [address] [facility] [place] [address] * POCT glucose (04/16/2025 11:55 AM CDT) Glucose, POC 106 70 - 199 mg/dL Blood 04/16/2025 11:5 5 AM CDT 04/16/2025 11:55 AM CDT us Viviana Barber MD LAB POCT ORDERABLES - DEVICE Fin al Result Performing Organization Address City/[facility] Co de Phone Number [facility] ([place]) [address] [facility] [place] [address] * POCT glucose (04/16/2025 8:19 AM CDT) Glucose, POC 134 70 - 199 mg/dL Blood 04/16/2025 8:19 AM CDT 04/16/2025 8:19 AM CDT us Viviana Barber MD LAB POCT ORDERABLES - DEVICE Fin al Result Performing Organization Address City/[facility]/ZIP Co de Phone Number [facility] ([place]) 1 [facility] [place] [address] * eGFR (04/16/2025 6:28 AM CDT) Pathologist [facility] eGFR >90 >=60 mL/min/1. 73 m2 Comment: Interpretive Data Reference Interval Normal >/= 90 mL/min/1.73m2 Mildly decreased* 60 - 89 mL/min/1.73m2 Mildly to moderately decreased 45 - 59 mL/min/1.73m2 Moderately to severely decreased 30 - 44 mL/min/1.73m2 Severely decreased 15 - 29 mL/min/1.73m2 Kidney Failure < 15 mL/min/1.73m2 *Relative to young adult level Estimated glomerular filtration rate is determined by the 2020 CKD-EPI equation recommended by the National Kidney Foundation (A Unifying Approach to GFR Estimation: Recommendations of the NKF-ASK Task Force on Reassessing the Inclusion of Race in Diagnosing Kidney Disease, JASN 2020). The CKD-EPI equation should not be used for patients with unstable renal function and has not been validated in children and those over 70. Current interpretive data was last reviewed 2021. Blood 04/16/2025 6:28 AM CDT 04/16/2025 6:34 AM CDT us Oliver Espinosa DPSusan LAB BLOOD ORDERABLES Final Result [facility] ([place]) 1 [facility] [place] [address] * Differential, auto (04/16/2025 6:28 AM CDT) Pathologist [facility] Neutrophil abs 2.07 1.50 - 6.50 K/cumm Imm gran abs 0.01 0.00 - 0.10 K/cumm [facility] ([place]) Lymphocyte abs 1.78 0.80 - 3.30 K/cumm [facility] ([place]) Monocyte abs 0.50 0.20 - 0.80 K/cumm [facility] ([place]) Eosinophil abs 0.17 0.00 - 0.50 K/cumm [facility] ([place]) Basophil abs 0.02 0.00 - 0.10 K/cumm [facility] ([place]) Neutrophil pct 45.6 % [facility] ([place]) Comment: Interpretive Data Percent cell count reference ranges are not reported, since discordance with absolute values may lead to misinterpretation of CBC data. Current Interpretive Data was last revised on 2017. Imm gran pct 0.2 % [facility] ([place]) Comment: Interpretive Data Percent cell count reference ranges are not reported, since discordance with absolute values may lead to misinterpretation of CBC data. Current Interpretive Data was last revised on 2017. Lymphocyte pct 39.1 % [facility] ([place]) Comment: Interpretive Data Percent cell count reference ranges are not reported, since discordance with absolute values may lead to misinterpretation of CBC data. Current Interpretive Data was last revised on 2017. Monocyte pct 11.0 % [facility] ([place]) Comment: Interpretive Data Percent cell count reference ranges are not reported, since discordance with absolute values may lead to misinterpretation of CBC data. Current Interpretive Data was last revised on 2017. Eosinophil pct 3.7 % [facility] ([place]) Comment: Interpretive Data Percent cell count reference ranges are not reported, since discordance with absolute values may lead to misinterpretation of CBC data. Current Interpretive Data was last revised on 2017. Basophil pct 0.4 % [facility] ([place]) Comment: Interpretive Data Percent cell count reference ranges are not reported, since discordance with absolute values may lead to misinterpretation of CBC data. Current Interpretive Data was last revised on 2017. Blood 04/16/2025 6:28 AM CDT 04/16/2025 6:34 AM CDT us Oliver Espinosa DPM LAB BLOOD ORDERABLES Final Result [facility] ([place]) 1 [facility] [place] [address] * (ABNORMAL) CBC with auto differential (04/16/2025 6:28 AM CDT) WBC 4.55 3.80 - 9.90 K/cumm Hgb 11.7(L) 13.0 - 17.5 g/dL [facility] ([place]) Hct 35.4(L) 38.9 - 50.3 % [facility] ([place]) Plt 202 150 - 400 K/cumm [facility] ([place]) MPV 10.5 9.1 - 12.3 fL [facility] ([place]) RBC 4.31 4.30 - 5.80 M/cumm [facility] ([place]) MCV 82.1 81.3 - 96.4 fL [facility] ([place]) MCH 27.1 27.1 - 33.3 pg [facility] ([place]) MCHC 33.1 32.3 - 35.7 g/dL [facility] ([place]) RDW CV 13.2 11.1 - 14.9 % [facility] ([place]) RDW SD 38.9 35.7 - 48.1 fL [facility] ([place]) NRBC abs 0.00 0.00 - 0.01 K/cumm [facility] ([place]) Blood 04/16/2025 6:28 AM CDT 04/16/2025 6:34 AM CDT Oliver Espinosa DP LAB BLOOD ORDERABLES Final Result [facility] ([place]) 1 [facility] [place] [address] * (ABNORMAL) Basic metabolic panel (04/16/2025 6:28 AM CDT) Pathologist [facility] Sodium 134(L) 135 - 145 mmol/L [facility] ([place]) Potassium, pl 4.3 3.3 - 4.9 mmol/L [facility] ([place]) Chloride 102 97 - 110 mmol/L [facility] ([place]) CO2 25 22 - 32 mmol/L [facility] ([place]) Anion gap 7 2 - 15 mmol/L [facility] ([place]) BUN 23 6 - 25 mg/dL [facility] ([place]) Creatinine 0.76(L) 0.80 - 1.30 mg/dL [facility] ([place]) Glucose 157 70 - 199 mg/dL [facility] ([place]) Comment: Interpretive Data Fasting glucose >/= 126 mg/dl is diagnostic for diabetes. Fasting is defined as no caloric intake for at least 8 hours. Fasting glucose between 100 mg/dl to 125 mg/dl is diagnostic of prediabetes. In a patient with classic symptoms of hyperglycemia or hyperglycemic crisis, a random glucose >/= 200 mg/dl is diagnostic for diabetes. In the absence of unequivocal hyperglycemia, results should be confirmed by repeat testing. The classification and Diagnosis of Diabetes Diabetes Care 2021; 46: S19-S40. Current interpretive data was last revised 2022. Calcium 8.8 8.5 - 10.3 mg/dL [facility] ([place]) Blood 04/16/2025 6:28 AM CDT 04/16/2025 6:34 AM CDT us Oliver Espinosa DPM LAB BLOOD ORDERABLES Final Result Performing Organization Address City/[facility]/ZIP Co de Phone Number [facility] ([place]) [address] [facility] [place] [employer] [place] [address] * POCT glucose (04/16/2025 2:01 AM CDT) Glucose, POC 168 70 - 199 mg/dL Blood 04/16/2025 2:01 AM CDT 04/16/2025 2:01 AM CDT Viviana Barber MD LAB POCT ORDERABLES - DEVICE Fin al Result Performing Organization Address City/[facility]/ZIP Co de Phone Number [facility] [address] [facility] [place] [address] * POCT glucose (04/15/2025 8:29 PM CDT) Glucose, POC 156 70 - 199 mg/dL Blood 04/15/2025 8:29 PM CDT 04/15/2025 8:29 PM CDT Viviana Barber MD LAB POCT ORDERABLES - DEVICE Fin al Result [facility] ([place]) [address] [facility] [place] [address] * POCT glucose (04/15/2025 4:44 PM CDT) Glucose, POC 114 70 - 199 mg/dL Blood 04/15/2025 4:44 PM CDT 04/15/2025 4:44 PM CDT Viviana Barber MD LAB POCT ORDERABLES - DEVICE Fin al Result Performing Organization Address City/[facility]/ZIP Co de Phone Number ANAND KING ([place]) [address] [facility] [place] [address] * POCT glucose (04/15/2025 11:52 AM CDT) Glucose, POC 167 70 - 199 mg/dL Blood 04/15/2025 11:5 2 AM CDT 04/15/2025 11:52 AM CDT Viviana Barber MD LAB POCT ORDERABLES - DEVICE Fin al Result Performing Organization Address City/[facility]/ZIP Co de Phone Number ANAND KING ([place]) [address] [facility] [place] [address] * POCT glucose (04/15/2025 7:57 AM CDT) Glucose, POC 157 70 - 199 mg/dL Blood 04/15/2025 7:57 AM CDT 04/15/2025 7:57 AM CDT Viviana Barber MD LAB POCT ORDERABLES - DEVICE Fin al Result ANAND KING ([place]) [address] [facility] [place] [address] * eGFR (04/15/2025 5:38 AM CDT) eGFR >90 >=60 mL/min/1. 73 m2 Comment: Interpretive Data Reference Interval Normal >/= 90 mL/min/1.73m2 Mildly decreased* 60 - 89 mL/min/1.73m2 Mildly to moderately decreased 45 - 59 mL/min/1.73m2 Moderately to severely decreased 30 - 44 mL/min/1.73m2 Severely decreased 15 - 29 mL/min/1.73m2 Kidney Failure < 15 mL/min/1.73m2 *Relative to young adult level Estimated glomerular filtration rate is determined by the 2020 CKD-EPI equation recommended by the National Kidney Foundation (A Unifying Approach to GFR Estimation: Recommendations of the NKF-ASK Task Force on Reassessing the Inclusion of Race in Diagnosing Kidney Disease, JASN 2020). The CKD-EPI equation should not be used for patients with unstable renal function and has not been validated in children and those over 70. Current interpretive data was last reviewed 2021. Blood 04/15/2025 5:38 AM CDT 04/15/2025 6:07 AM CDT us Oliver Espinosa DPM LAB BLOOD ORDERABLES Final Result [facility] ([place]) 1 [facility] [place] [address] * Differential, auto (04/15/2025 5:38 AM CDT) Neutrophil abs 2.30 1.50 - 6.50 K/cumm Imm gran abs 0.01 0.00 - 0.10 K/cumm [facility] ([place]) Lymphocyte abs 2.03 0.80 - 3.30 K/cumm [facility] ([place]) Monocyte abs 0.55 0.20 - 0.80 K/cumm [facility] ([place]) Eosinophil abs 0.23 0.00 - 0.50 K/cumm [facility] ([place]) Basophil abs 0.03 0.00 - 0.10 K/cumm [facility] ([place]) Neutrophil pct 44.6 % [facility] ([place]) Comment: Interpretive Data Percent cell count reference ranges are not reported, since discordance with absolute values may lead to misinterpretation of CBC data. Current Interpretive Data was last revised on 2017. Imm gran pct 0.2 % [facility] ([place]) Comment: Interpretive Data Percent cell count reference ranges are not reported, since discordance with absolute values may lead to misinterpretation of CBC data. Current Interpretive Data was last revised on 2017. Lymphocyte pct 39.4 % [facility] ([place]) Comment: Interpretive Data Percent cell count reference ranges are not reported, since discordance with absolute values may lead to misinterpretation of CBC data. Current Interpretive Data was last revised on 2017. Monocyte pct 10.7 % [facility] ([place]) Comment: Interpretive Data Percent cell count reference ranges are not reported, since discordance with absolute values may lead to misinterpretation of CBC data. Current Interpretive Data was last revised on 2017. Eosinophil pct 4.5 % [facility] ([place]) Comment: Interpretive Data Percent cell count reference ranges are not reported, since discordance with absolute values may lead to misinterpretation of CBC data. Current Interpretive Data was last revised on 2017. Basophil pct 0.6 % [facility] ([place]) Comment: Interpretive Data Percent cell count reference ranges are not reported, since discordance with absolute values may lead to misinterpretation of CBC data. Current Interpretive Data was last revised on 2017. Blood 04/15/2025 5:38 AM CDT 04/15/2025 6:07 AM CDT us Oliver Espinosa DPSusan LAB BLOOD ORDERABLES Final Result ANAND KING ([place]) 1 [facility] [place] [address] * (ABNORMAL) CBC with auto differential (04/15/2025 5:38 AM CDT) WBC 5.15 3.80 - 9.90 K/cumm Hgb 11.6(L) 13.0 - 17.5 g/dL [facility] ([place]) Hct 34.8(L) 38.9 - 50.3 % [facility] ([place]) Plt 196 150 - 400 K/cumm [facility] ([place]) MPV 11.6 9.1 - 12.3 fL [facility] ([place]) RBC 4.20(L) 4.30 - 5.80 M/cumm [facility] ([place]) MCV 82.9 81.3 - 96.4 fL [facility] ([place]) MCH 27.6 27.1 - 33.3 pg [facility] ([place]) MCHC 33.3 32.3 - 35.7 g/dL [facility] ([place]) RDW CV 13.2 11.1 - 14.9 % [facility] ([place]) RDW SD 39.5 35.7 - 48.1 fL [facility] ([place]) NRBC abs 0.00 0.00 - 0.01 K/cumm [facility] Blood 04/15/2025 5:38 AM CDT 04/15/2025 6:07 AM CDT us Oliver Espinosa DPM LAB BLOOD ORDERABLES Final Result [facility] ([place]) 1 [facility] [place] [address] * (ABNORMAL) Basic metabolic panel (04/15/2025 5:38 AM CDT) Sodium 135 135 - 145 mmol/L [facility] ([place]) Potassium, pl 4.2 3.3 - 4.9 mmol/L [facility] ([place]) Chloride 102 97 - 110 mmol/L [facility] ([place]) CO2 26 22 - 32 mmol/L [facility] ([place]) Anion gap 7 2 - 15 mmol/L [facility] ([place]) BUN 22 6 - 25 mg/dL [facility] ([place]) Creatinine 0.74(L) 0.80 - 1.30 mg/dL [facility] ([place]) Glucose 163 70 - 199 mg/dL [facility] ([place]) Comment: Interpretive Data Fasting glucose >/= 126 mg/dl is diagnostic for diabetes. Fasting is defined as no caloric intake for at least 8 hours. Fasting glucose between 100 mg/dl to 125 mg/dl is diagnostic of prediabetes. In a patient with classic symptoms of hyperglycemia or hyperglycemic crisis, a random glucose >/= 200 mg/dl is diagnostic for diabetes. In the absence of unequivocal hyperglycemia, results should be confirmed by repeat testing. The classification and Diagnosis of Diabetes Diabetes Care 2021; 46: S19-S40. Current interpretive data was last revised 2022. Calcium 8.8 8.5 - 10.3 mg/dL ANAND KING ([place]) Blood 04/15/2025 5:38 AM CDT 04/15/2025 6:07 AM CDT Oliver THOMPSONM LAB BLOOD ORDERABLES Final Result Performing Organization Address [facility] de Phone Number JANINAALYX [facility] ([place]) 1 [facility] [place] [address] * POCT glucose (04/15/2025 2:06 AM CDT) Glucose, POC 166 70 - 199 mg/dL Blood 04/15/2025 2:06 AM CDT 04/15/2025 2:06 AM CDT Viviana Barber MD LAB POCT ORDERABLES - DEVICE Fin al Result Performing Organization Address [facility] de Phone Number ANAND [facility] (GR[place]) 1 [facility] [place] [address] * POCT glucose (04/14/2025 8:46 PM CDT) Glucose, POC 166 70 - 199 mg/dL Blood 04/14/2025 8:46 PM CDT 04/14/2025 8:46 PM CDT Viviana Barber MD LAB POCT ORDERABLES - DEVICE Fin al Result ANAND KING ([place]) [address] [facility] [place] [address] * POCT glucose (04/14/2025 4:49 PM CDT) Glucose, POC 126 70 - 199 mg/dL Blood 04/14/2025 4:49 PM CDT 04/14/2025 4:49 PM CDT Viviana Barber MD LAB POCT ORDERABLES - DEVICE Fin al Result Performing Organization Address City/[facility]/ZIP Co de Phone Number ANAND KING ([place]) [address] [facility] [place] [address] * (ABNORMAL) Erythrocyte sedimentation rate (04/14/2025 4:36 PM CDT) Pathologist [facility] Erythrocyte sedimentation rate 50(H) 1 - 20 mm/hr Blood 04/14/2025 4:36 PM CDT 04/14/2025 4:40 PM CDT Richard Hewitt MD LAB BLOOD ORDERABLES Final Result Performing Organization Address City/[facility]/ZIP Co de Phone Number ANAND KING ([place]) [address] [facility] [place] [address] * POCT glucose (04/14/2025 11:51 AM CDT) Glucose, POC 139 70 - 199 mg/dL Blood 04/14/2025 11:5 1 AM CDT 04/14/2025 11:51 AM CDT Viviana Barber MD LAB POCT ORDERABLES - DEVICE Fin al Result ANAND KING ([place]) [address] [facility] [place] [address] * POCT glucose (04/14/2025 7:57 AM CDT) Glucose, POC 179 70 - 199 mg/dL Blood 04/14/2025 7:57 AM CDT 04/14/2025 7:57 AM CDT us Viviana Barber MD LAB POCT ORDERABLES - DEVICE Fin al Result Performing Organization Address [facility]/ZIP Co de Phone Number ANAND KING ([place]) 1 [facility] [place] [address] * eGFR (04/14/2025 2:38 AM CDT) eGFR >90 >=60 mL/min/1. 73 m2 Comment: Interpretive Data Reference Interval Normal >/= 90 mL/min/1.73m2 Mildly decreased* 60 - 89 mL/min/1.73m2 Mildly to moderately decreased 45 - 59 mL/min/1.73m2 Moderately to severely decreased 30 - 44 mL/min/1.73m2 Severely decreased 15 - 29 mL/min/1.73m2 Kidney Failure < 15 mL/min/1.73m2 *Relative to young adult level Estimated glomerular filtration rate is determined by the 2020 CKD-EPI equation recommended by the National Kidney Foundation (A Unifying Approach to GFR Estimation: Recommendations of the NKF-ASK Task Force on Reassessing the Inclusion of Race in Diagnosing Kidney Disease, JASN 2020). The CKD-EPI equation should not be used for patients with unstable renal function and has not been validated in children and those over 70. Current interpretive data was last reviewed 2021. Blood 04/14/2025 2:38 AM CDT 04/14/2025 3:25 AM CDT us Oliver Espinosa DPM LAB BLOOD ORDERABLES Final Result Performing Organization Address City/[facility]/ZIP Co de Phone Number ANAND KING ([place]) 1 [facility] [place] [address] * Differential, auto (04/14/2025 2:38 AM CDT) Neutrophil abs 3.35 1.50 - 6.50 K/cumm Imm gran abs 0.02 0.00 - 0.10 K/cumm [facility] ([place]) Lymphocyte abs 1.90 0.80 - 3.30 K/cumm [facility] ([place]) Monocyte abs 0.72 0.20 - 0.80 K/cumm [facility] ([place]) Eosinophil abs 0.24 0.00 - 0.50 K/cumm [facility] ([place]) Basophil abs 0.03 0.00 - 0.10 K/cumm [facility] ([place]) Neutrophil pct 53.5 % [facility] ([place]) Comment: Interpretive Data Percent cell count reference ranges are not reported, since discordance with absolute values may lead to misinterpretation of CBC data. Current Interpretive Data was last revised on 2017. Imm gran pct 0.3 % [facility] ([place]) Comment: Interpretive Data Percent cell count reference ranges are not reported, since discordance with absolute values may lead to misinterpretation of CBC data. Current Interpretive Data was last revised on 2017. Lymphocyte pct 30.4 % [facility] ([place]) Comment: Interpretive Data Percent cell count reference ranges are not reported, since discordance with absolute values may lead to misinterpretation of CBC data. Current Interpretive Data was last revised on 2017. Monocyte pct 11.5 % [facility] ([place]) Comment: Interpretive Data Percent cell count reference ranges are not reported, since discordance with absolute values may lead to misinterpretation of CBC data. Current Interpretive Data was last revised on 2017. Eosinophil pct 3.8 % [facility] ([place]) Comment: Interpretive Data Percent cell count reference ranges are not reported, since discordance with absolute values may lead to misinterpretation of CBC data. Current Interpretive Data was last revised on 2017. Basophil pct 0.5 % [facility] ([place]) Comment: Interpretive Data Percent cell count reference ranges are not reported, since discordance with absolute values may lead to misinterpretation of CBC data. Current Interpretive Data was last revised on 2017. Blood 04/14/2025 2:38 AM CDT 04/14/2025 3:23 AM CDT Oliver Espinosa DPM LAB BLOOD ORDERABLES Final Result [facility] ([place]) 1 [facility] [place] [address] * (ABNORMAL) CBC with auto differential (04/14/2025 2:38 AM CDT) WBC 6.26 3.80 - 9.90 K/cumm Hgb 11.1(L) 13.0 - 17.5 g/dL [facility] ([place]) Hct 33.9(L) 38.9 - 50.3 % [facility] ([place]) Plt 187 150 - 400 K/cumm [facility] ([place]) MPV 11.4 9.1 - 12.3 fL [facility] ([place]) RBC 4.08(L) 4.30 - 5.80 M/cumm [facility] ([place]) MCV 83.1 81.3 - 96.4 fL [facility] ([place]) MCH 27.2 27.1 - 33.3 pg [facility] ([place]) MCHC 32.7 32.3 - 35.7 g/dL [facility] ([place]) RDW CV 13.0 11.1 - 14.9 % [facility] ([place]) RDW SD 38.9 35.7 - 48.1 fL [facility] ([place]) NRBC abs 0.00 0.00 - 0.01 K/cumm [facility] ([place]) Blood 04/14/2025 2:38 AM CDT 04/14/2025 3:23 AM CDT Oliver Espinosa DPM LAB BLOOD ORDERABLES Final Result [facility] ([place]) 1 [facility] [place] [address] * (ABNORMAL) Basic metabolic panel (04/14/2025 2:38 AM CDT) Sodium 134(L) 135 - 145 mmol/L [facility] ([place]) Potassium, pl 4.1 3.3 - 4.9 mmol/L [facility] ([place]) Chloride 100 97 - 110 mmol/L [facility] ([place]) CO2 22 22 - 32 mmol/L [facility] ([place]) Anion gap 12 2 - 15 mmol/L [facility] ([place]) BUN 22 6 - 25 mg/dL [facility] ([place]) Creatinine 0.84 0.80 - 1.30 mg/dL [facility] ([place]) Glucose 184 70 - 199 mg/dL [facility] ([place]) Comment: Interpretive Data Fasting glucose >/= 126 mg/dl is diagnostic for diabetes. Fasting is defined as no caloric intake for at least 8 hours. Fasting glucose between 100 mg/dl to 125 mg/dl is diagnostic of prediabetes. In a patient with classic symptoms of hyperglycemia or hyperglycemic crisis, a random glucose >/= 200 mg/dl is diagnostic for diabetes. In the absence of unequivocal hyperglycemia, results should be confirmed by repeat testing. The classification and Diagnosis of Diabetes Diabetes Care 2021; 46: S19-S40. Current interpretive data was last revised 2022. Calcium 8.6 8.5 - 10.3 mg/dL [facility] ([place]) Blood 04/14/2025 2:38 AM CDT 04/14/2025 3:25 AM CDT us Oliver Espinosa DPM LAB BLOOD ORDERABLES Final Result Performing Organization Address City/[facility]/ZIP Co de Phone Number ANAND [facility] ([place]) 1 [facility] [place] [address] * POCT glucose (04/14/2025 2:31 AM CDT) Glucose, POC 171 70 - 199 mg/dL Comment:Glu2: RN/ Notified Blood 04/14/2025 2:31 AM CDT 04/14/2025 2:31 AM CDT Viviana Barber MD LAB POCT ORDERABLES - DEVICE Fin al Result Performing Organization Address City/[facility] Co de Phone Number ANAND [facility] ([place]) 1 [place] [address] * POCT glucose (04/13/2025 8:23 PM CDT) Glucose, POC 176 70 - 199 mg/dL Comment:Glu2: RN/ Notified Blood 04/13/2025 8:23 PM CDT 04/13/2025 8:23 PM CDT Viviana Barber MD LAB POCT ORDERABLES - DEVICE Fin al Result ANAND KING ([place]) 1 [place] [address] * POCT glucose (04/13/2025 4:55 PM CDT) Glucose, POC 141 70 - 199 mg/dL Blood 04/13/2025 4:55 PM CDT 04/13/2025 4:55 PM CDT Viviana Barber MD LAB POCT ORDERABLES - DEVICE Fin al Result [facility] ([place]) [address] [facility] [place] [address] * POCT glucose (04/13/2025 11:56 AM CDT) Glucose, POC 121 70 - 199 mg/dL Blood 04/13/2025 11:5 6 AM CDT 04/13/2025 11:56 AM CDT Viviana Barber MD LAB POCT ORDERABLES - DEVICE Fin al Result [facility] ([place]) [address] [facility] [place] [address] * POCT glucose (04/13/2025 8:00 AM CDT) Glucose, POC 135 70 - 199 mg/dL Blood 04/13/2025 8:00 AM CDT 04/13/2025 8:00 AM CDT Viviana Barber MD LAB POCT ORDERABLES - DEVICE Fin al Result ANAND KING ([place]) 1 [facility] [place] [address] * POCT glucose (04/13/2025 3:15 AM CDT) Glucose, POC 159 70 - 199 mg/dL Comment:Glu2: RN/ Notified Blood 04/13/2025 3:15 AM CDT 04/13/2025 3:15 AM CDT Ivett Cummings MD LAB POCT ORDERABLES - DEV ICE Final Result Performing Organization Address City/[facility]/ZIP Co de Phone Number ANAND KING ([place]) 1 [facility] [place] [address] * eGFR (04/13/2025 2:56 AM CDT) eGFR >90 >=60 mL/min/1. 73 m2 Comment: Interpretive Data Reference Interval Normal >/= 90 mL/min/1.73m2 Mildly decreased* 60 - 89 mL/min/1.73m2 Mildly to moderately decreased 45 - 59 mL/min/1.73m2 Moderately to severely decreased 30 - 44 mL/min/1.73m2 Severely decreased 15 - 29 mL/min/1.73m2 Kidney Failure < 15 mL/min/1.73m2 *Relative to young adult level Estimated glomerular filtration rate is determined by the 2020 CKD-EPI equation recommended by the National Kidney Foundation (A Unifying Approach to GFR Estimation: Recommendations of the NKF-ASK Task Force on Reassessing the Inclusion of Race in Diagnosing Kidney Disease, JASN 2020). The CKD-EPI equation should not be used for patients with unstable renal function and has not been validated in children and those over 70. Current interpretive data was last reviewed 2021. Blood 04/13/2025 2:56 AM CDT 04/13/2025 3:16 AM CDT Oliver Espinosa DPSusan LAB BLOOD ORDERABLES Final Result ANAND KING ([place]) 1 [facility] [place] [address] * Differential, auto (04/13/2025 2:56 AM CDT) Neutrophil abs 3.52 1.50 - 6.50 K/cumm Imm gran abs 0.01 0.00 - 0.10 K/cumm [facility] ([place]) Lymphocyte abs 1.64 0.80 - 3.30 K/cumm [facility] ([place]) Monocyte abs 0.68 0.20 - 0.80 K/cumm [facility] ([place]) Eosinophil abs 0.15 0.00 - 0.50 K/cumm [facility] ([place]) Basophil abs 0.03 0.00 - 0.10 K/cumm [facility] ([place]) Neutrophil pct 58.3 % [facility] ([place]) Comment: Interpretive Data Percent cell count reference ranges are not reported, since discordance with absolute values may lead to misinterpretation of CBC data. Current Interpretive Data was last revised on 2017. Imm gran pct 0.2 % [facility] ([place]) Comment: Interpretive Data Percent cell count reference ranges are not reported, since discordance with absolute values may lead to misinterpretation of CBC data. Current Interpretive Data was last revised on 2017. Lymphocyte pct 27.2 % [facility] ([place]) Comment: Interpretive Data Percent cell count reference ranges are not reported, since discordance with absolute values may lead to misinterpretation of CBC data. Current Interpretive Data was last revised on 2017. Monocyte pct 11.3 % [facility] ([place]) Comment: Interpretive Data Percent cell count reference ranges are not reported, since discordance with absolute values may lead to misinterpretation of CBC data. Current Interpretive Data was last revised on 2017. Eosinophil pct 2.5 % [facility] ([place]) Comment: Interpretive Data Percent cell count reference ranges are not reported, since discordance with absolute values may lead to misinterpretation of CBC data. Current Interpretive Data was last revised on 2017. Basophil pct 0.5 % [facility] ([place]) Comment: Interpretive Data Percent cell count reference ranges are not reported, since discordance with absolute values may lead to misinterpretation of CBC data. Current Interpretive Data was last revised on 2017. Blood 04/13/2025 2:56 AM CDT 04/13/2025 3:15 AM CDT us Oliver Espinosa DPM LAB BLOOD ORDERABLES Final Result [facility] ([place]) 1 [facility] [place] [address] * (ABNORMAL) CBC with auto differential (04/13/2025 2:56 AM CDT) WBC 6.03 3.80 - 9.90 K/cumm Hgb 11.4(L) 13.0 - 17.5 g/dL [facility] ([place]) Hct 35.2(L) 38.9 - 50.3 % [facility] ([place]) Plt 183 150 - 400 K/cumm [facility] ([place]) MPV 10.8 9.1 - 12.3 fL [facility] ([place]) RBC 4.25(L) 4.30 - 5.80 M/cumm [facility] ([place]) MCV 82.8 81.3 - 96.4 fL [facility] ([place]) MCH 26.8(L) 27.1 - 33.3 pg [facility] ([place]) MCHC 32.4 32.3 - 35.7 g/dL [facility] ([place]) RDW CV 13.2 11.1 - 14.9 % [facility] ([place]) RDW SD 39.4 35.7 - 48.1 fL [facility] ([place]) NRBC abs 0.00 0.00 - 0.01 K/cumm [facility] ([place]) Blood 04/13/2025 2:56 AM CDT 04/13/2025 3:15 AM CDT us Oliver Espinosa DPM LAB BLOOD ORDERABLES Final Result ANAND [facility]ING ([place]) 1 [facility] [employer] [place] [address] * Basic metabolic panel (04/13/2025 2:56 AM CDT) Sodium 135 135 - 145 mmol/L [facility] ([place]) Potassium, pl 4.2 3.3 - 4.9 mmol/L [facility] ([place]) Chloride 103 97 - 110 mmol/L [facility] ([place]) CO2 23 22 - 32 mmol/L [facility] ([place]) Anion gap 9 2 - 15 mmol/L [facility] ([place]) BUN 16 6 - 25 mg/dL [facility] ([place]) Creatinine 0.80 0.80 - 1.30 mg/dL [facility] ([place]) Glucose 162 70 - 199 mg/dL [facility] ([place]) Comment: Interpretive Data Fasting glucose >/= 126 mg/dl is diagnostic for diabetes. Fasting is defined as no caloric intake for at least 8 hours. Fasting glucose between 100 mg/dl to 125 mg/dl is diagnostic of prediabetes. In a patient with classic symptoms of hyperglycemia or hyperglycemic crisis, a random glucose >/= 200 mg/dl is diagnostic for diabetes. In the absence of unequivocal hyperglycemia, results should be confirmed by repeat testing. The classification and Diagnosis of Diabetes Diabetes Care 2021; 46: S19-S40. Current interpretive data was last revised 2022. Calcium 8.6 8.5 - 10.3 mg/dL [facility] ([place]) Blood 04/13/2025 2:56 AM CDT 04/13/2025 3:16 AM CDT us Oliver Espinosa DPM LAB BLOOD ORDERABLES Final Result ANAND [facility]ING ([place]) 1 [facility] [place] [address] * (ABNORMAL) POCT glucose (04/12/2025 8:21 PM CDT) Glucose, POC 212(H) 70 - 199 mg/dL Blood 04/12/2025 8:21 PM CDT 04/12/2025 8:21 PM CDT Ivett Cummings MD LAB POCT ORDERABLES - DEV ICE Final Result Performing Organization Address City/[facility]/ZIP Co de Phone Number ANAND [facility] ([place]) [address] [place] [address] [place] [address] * (ABNORMAL) POCT glucose (04/12/2025 4:23 PM CDT) Glucose, POC 203(H) 70 - 199 mg/dL Blood 04/12/2025 4:23 PM CDT 04/12/2025 4:23 PM CDT Ivett Cummings MD LAB POCT ORDERABLES - DEV ICE Final Result Performing Organization Address [facility] de Phone Number ANAND [facility] ([place]) [address] [place] [address] [place] [address] * Surgical pathology (04/12/2025 2:30 PM CDT) Tissue (Bone Fragment(s),) 04/12/2025 1:36 PM CDT Narrative PATHOLOGY [facility] ([place]) - 04/15/2025 10:17 AM CDT EPIC results best viewed via link to PDF [facility] Department of Pathology [address] [place] [id number] Note to Patients: This report may contain a detailed description of human tissue sent by a health care provider to the laboratory for pathologic evaluation. The content of this report is essential for diagnosis and may provide important critical findings. This information may be unfamiliar to patients to review without a medical professional present. It is advised that the patient review this report in the presence of a health care provider who can answer questions and explain the details. Final Report Patient Name: JAZZY AYERS Address: [address] [place] [id number] Gender: M : 1970 (Age: 54) Service: Medical Location: [facility] Hospital #: [id number] Patient Type: [facility] Taken: 04/12/2025 Received: 04/12/2025 Accessioned: 04/12/2025 Reported: 04/15/2025 Physician(s):Oliver Espinosa D.P.M. Diagnosis: A. Right lower extremity, first metatarsal, bone biopsy- Benign trabecular bone demonstrating serous atrophy and bony remodeling See microscopic description Nya Mcfadden M.D. Report Electronically Reviewed and Signed Out By Nya Mcfadden M.D. 04/15/2025 10:17:32 Specimen(s) Received: A: Right first metatarsal Microscopic Description: Sections demonstrate benign trabecular bone and associated soft tissue. Marrow shows serous atrophy and bony trabeculae show prominent bony remodeling. Significant plasma cells/lymphocytes and areas of neutrophils are not seen however these findings may be compatible with mild chronic osteomyelitis in the appropriate clinical/radiographic setting. Clinical History: Foot infection. Debridement of infected tissue and bone right foot. Gross Description: The specimen is submitted in a single formalin filled container labeled JAZZY AYERS and right first metatarsal. It is 2 pieces of red ragged bone between 0.2 and 1.2 cm. The specimen is decalcified. All in one cassette. Nano Allred R.N., P.A./Teresa Antonio M.D. REPORT IMAGES AND SCANNED DOCUMENTS, IF INCLUDED, ONLY VIEWABLE IN PDF VERSION OF REPORT The performance characteristics of some immunohistochemical stains, fluorescence in-situ hybridization tests and immunophenotyping by flow cytometry cited in this report (if any) were determined by the Surgical Pathology Department at [facility] as part of an ongoing supervisor quality control program and in compliance with federally mandated regulations drawn from the Clinical Laboratory Improvement Act of 1988 (CLIA '88). Some of these tests rely on the use of analyte specific reagents and are subject to specific labeling requirements by the US Food and Drug Administration. Such diagnostic tests may only be performed in a facility that is certified by the Department of Health and Human Services as a high complexity laboratory under CLIA '88. The FDA has determined that such clearance or approval is not necessary. This test is used for clinical purposes. It should not be regarded as investigational or for research. Nevertheless, federal rules concerning the medical use of analyte specific reagents require that the following disclaimer be attached to the report: This test was developed and its performance characteristics determined by the Surgical Pathology Department [facility]. It has not been cleared or approved by the U. S. Food and Drug Administration. Note for decalcified specimens: This assay has not been validated on decalcified tissues. Results should be interpreted with caution given the possibility of false negativity on decalcified specimens Oliver THOMPSONM LAB PATHOLOGY ORDERABLES F inal Result Performing Organization Address City/[facility]/ZIP Co de Phone Number PATHOLOGY [facility] ([place]) [address] [place] [address] * POCT glucose (04/12/2025 1:49 PM CDT) Pathologist [facility] Glucose, POC 135 70 - 199 mg/dL Blood 04/12/2025 1:49 PM CDT 04/12/2025 1:49 PM CDT Ivett Cummings MD LAB POCT ORDERABLES - DEV ICE Final Result Performing Organization Address [facility]/ZIP Co de Phone Number CERNER [facility] ([place]) [address] [place] [address] [place] [address] * (ABNORMAL) Tissue aerobic and anaerobic culture and gram stain Bone Toe, first (04/12/2025 1:45 PM CDT) Pathologist [facility] Direct Specimen Exam Stain: No polymorphonuclear leukocytes seen. No organisms seen. Comment:Testing performed by : [facility], [address] [facility], [place]., [address] Report Final Report: Few Mixed microorganisms. Includes the following: Few Streptococcus agalactiae (Group B Streptococci) * * * * * * * * * * * * * * * * * * * * Resistance to penicillin in Group B Streptococcus has not been reported. Group B Streptococci are universally susceptible to beta-lactam antibiotics and vancomycin. Routine susceptibility testing is not performed. In penicillin allergic patients, please contact the laboratory at [phone] to request susceptibility testing * * * * * * * * * * * * * * * * * * * * Rare Proteus mirabilis (.) ANAND K[facility] ([place]) Comment:Testing performed by : [facility], [address] [place]., [address] Organism STREPTOCOCCUS AGALACTIAE (GROUP B STREPTOCOCCI) [facility] ([place]) Organism PROTEUS MIRABILIS CE REY [facility] ([place]) Organism MIXED MICROORGANISMS. [facility]ND [facility] ([place]) Bone (Toe, first) 04/12/2025 1:45 PM CDT 04/12/2025 6:23 PM CDT Narrative ANAND [facility] ([place]) - 04/16/2025 8:15 AM CDT Right first Metatarsal Testing performed by [facility] ([phone]) Specimens submitted from normally sterile body sites will have all bacterial morphotypes identified. Specimens that contain grossly mixed tete and/or are from body sites that are not normally sterile will be examined for Staphylococcus aureus, Pseudomonas aeruginosa, beta-hemolytic strep, vancomycin-resistant Enterococcus, Bacteroides, Parabacteroides, Clostridium perfringens and fungus. If any of these are isolated, the organism will be reported. Current interpretive data was last revised on 2019. Organism Antibiotic Method Susceptibility Proteus mirabilis Ampicillin INTERPRETATION Susceptible Proteus mirabilis Cefazolin INTERPRETATION Intermediate Proteus mirabilis Gentamicin INTERPRETATION Susceptible Proteus mirabilis Ampicillin with Sulbactam INTERPRETA TION Susceptible Proteus mirabilis Trimethoprim with Sulfamethoxazole I NTERPRETATION Susceptible Proteus mirabilis Meropenem INTERPRETATION Susceptible Proteus mirabilis Cefepime INTERPRETATION Susceptible Proteus mirabilis Ciprofloxacin INTERPRETATION Susceptible Proteus mirabilis Ceftazidime INTERPRETATION Susceptible Proteus mirabilis Ceftriaxone INTERPRETATION Susceptible Proteus mirabilis Piperacillin/Tazobactam INTERPRETATI ON Susceptible us Oliver Espinosa DPM LAB MICROBIOLOGY - GENERAL ORDERABLES Final Result ANAND WARRENN) 1 [facility] [place] [address] * POCT glucose (04/12/2025 12:25 PM CDT) Glucose, POC 152 70 - 199 mg/dL Blood 04/12/2025 12:2 5 PM CDT 04/12/2025 12:25 PM CDT Ivett Cummings MD LAB POCT ORDERABLES - DEV ICE Final Result ANAND LyonsGR[place]AM) 1 [facility] [place] [address] * POCT glucose (04/12/2025 7:35 AM CDT) Glucose, POC 177 70 - 199 mg/dL Blood 04/12/2025 7:35 AM CDT 04/12/2025 7:35 AM CDT Ivett Cummings MD LAB POCT ORDERABLES - DEV ICE Final Result Performing Organization Address City/[facility]/ZIP Co de Phone Number ANAND LyonsGRESHAM) 1 [facility] [place] [address] * eGFR (04/12/2025 2:33 AM CDT) eGFR >90 >=60 mL/min/1. 73 m2 Comment: Interpretive Data Reference Interval Normal >/= 90 mL/min/1.73m2 Mildly decreased* 60 - 89 mL/min/1.73m2 Mildly to moderately decreased 45 - 59 mL/min/1.73m2 Moderately to severely decreased 30 - 44 mL/min/1.73m2 Severely decreased 15 - 29 mL/min/1.73m2 Kidney Failure < 15 mL/min/1.73m2 *Relative to young adult level Estimated glomerular filtration rate is determined by the 2020 CKD-EPI equation recommended by the National Kidney Foundation (A Unifying Approach to GFR Estimation: Recommendations of the NKF-ASK Task Force on Reassessing the Inclusion of Race in Diagnosing Kidney Disease, JASN 2020). The CKD-EPI equation should not be used for patients with unstable renal function and has not been validated in children and those over 70. Current interpretive data was last reviewed 2021. Blood 04/12/2025 2:33 AM CDT 04/12/2025 3:11 AM CDT us Courtney Brower NP LAB BLOOD ORDERABLES Final Resul t [facility] ([place]) 1 [facility] Department [place] [address] * Differential, auto (04/12/2025 2:33 AM CDT) Neutrophil abs 3.50 1.50 - 6.50 K/cumm Imm gran abs 0.01 0.00 - 0.10 K/cumm [facility] ([place]) Lymphocyte abs 1.69 0.80 - 3.30 K/cumm [facility] ([place]) Monocyte abs 0.64 0.20 - 0.80 K/cumm [facility] ([place]) Eosinophil abs 0.16 0.00 - 0.50 K/cumm [facility] ([place]) Basophil abs 0.02 0.00 - 0.10 K/cumm [facility] ([place]) Neutrophil pct 58.1 % [facility] ([place]) Comment: Interpretive Data Percent cell count reference ranges are not reported, since discordance with absolute values may lead to misinterpretation of CBC data. Current Interpretive Data was last revised on 2017. Imm gran pct 0.2 % [facility] ([place]) Comment: Interpretive Data Percent cell count reference ranges are not reported, since discordance with absolute values may lead to misinterpretation of CBC data. Current Interpretive Data was last revised on 2017. Lymphocyte pct 28.1 % [facility] ([place]) Comment: Interpretive Data Percent cell count reference ranges are not reported, since discordance with absolute values may lead to misinterpretation of CBC data. Current Interpretive Data was last revised on 2017. Monocyte pct 10.6 % [facility] ([place]) Comment: Interpretive Data Percent cell count reference ranges are not reported, since discordance with absolute values may lead to misinterpretation of CBC data. Current Interpretive Data was last revised on 2017. Eosinophil pct 2.7 % [facility] ([place]) Comment: Interpretive Data Percent cell count reference ranges are not reported, since discordance with absolute values may lead to misinterpretation of CBC data. Current Interpretive Data was last revised on 2017. Basophil pct 0.3 % [facility] ([place]) Comment: Interpretive Data Percent cell count reference ranges are not reported, since discordance with absolute values may lead to misinterpretation of CBC data. Current Interpretive Data was last revised on 2017. Blood 04/12/2025 2:33 AM CDT 04/12/2025 3:11 AM CDT us Courtney Brower NP LAB BLOOD ORDERABLES Final Resul t [facility] ([place]) 1 [facility] Department [place] [address] * (ABNORMAL) CBC with auto differential (04/12/2025 2:33 AM CDT) WBC 6.02 3.80 - 9.90 K/cumm Hgb 11.5(L) 13.0 - 17.5 g/dL [facility] ([place]) Hct 35.3(L) 38.9 - 50.3 % [facility] ([place]) Plt 203 150 - 400 K/cumm [facility] ([place]) MPV 11.0 9.1 - 12.3 fL [facility] ([place]) RBC 4.29(L) 4.30 - 5.80 M/cumm [facility] ([place]) MCV 82.3 81.3 - 96.4 fL [facility] ([place]) MCH 26.8(L) 27.1 - 33.3 pg [facility] ([place]) MCHC 32.6 32.3 - 35.7 g/dL [facility] ([place]) RDW CV 12.9 11.1 - 14.9 % [facility] ([place]) RDW SD 38.4 35.7 - 48.1 fL [facility] ([place]) NRBC abs 0.00 0.00 - 0.01 K/cumm [facility] ([place]) Blood 04/12/2025 2:33 AM CDT 04/12/2025 3:11 AM CDT Oliver Espinosa DPM LAB BLOOD ORDERABLES Final Result [facility] ([place]) 1 [facility] Department [place] [address] * Basic metabolic panel (04/12/2025 2:33 AM CDT) Sodium 135 135 - 145 mmol/L [facility] ([place]) Potassium, pl 4.1 3.3 - 4.9 mmol/L [facility] ([place]) Chloride 99 97 - 110 mmol/L [facility] ([place]) CO2 23 22 - 32 mmol/L [facility] ([place]) Anion gap 13 2 - 15 mmol/L [facility] ([place]) BUN 20 6 - 25 mg/dL [facility] ([place]) Creatinine 0.86 0.80 - 1.30 mg/dL [facility] ([place]) Glucose 197 70 - 199 mg/dL [facility] ([place]) Comment: Interpretive Data Fasting glucose >/= 126 mg/dl is diagnostic for diabetes. Fasting is defined as no caloric intake for at least 8 hours. Fasting glucose between 100 mg/dl to 125 mg/dl is diagnostic of prediabetes. In a patient with classic symptoms of hyperglycemia or hyperglycemic crisis, a random glucose >/= 200 mg/dl is diagnostic for diabetes. In the absence of unequivocal hyperglycemia, results should be confirmed by repeat testing. The classification and Diagnosis of Diabetes Diabetes Care 2021; 46: S19-S40. Current interpretive data was last revised 2022. Calcium 9.3 8.5 - 10.3 mg/dL [facility] ([place]) Blood 04/12/2025 2:33 AM CDT 04/12/2025 3:11 AM CDT Oliver Espinosa DPM LAB BLOOD ORDERABLES Final Result ANAND [facility] ([place]) [address] [facility] [place] [address] * POCT glucose (04/12/2025 1:56 AM CDT) Glucose, POC 198 70 - 199 mg/dL Blood 04/12/2025 1:56 AM CDT 04/12/2025 1:56 AM CDT Ivett Cummings MD LAB POCT ORDERABLES - DEV ICE Final Result Performing Organization Address City/[facility]/ZIP Co de Phone Number ANAND K[facility] ([place]) [address] [facility] [place] [address] * POCT glucose (04/11/2025 8:21 PM CDT) Glucose, POC 154 70 - 199 mg/dL Blood 04/11/2025 8:21 PM CDT 04/11/2025 8:21 PM CDT Ivett Cummings MD LAB POCT ORDERABLES - DEV ICE Final Result ANAND [facility] ([place]) [address] [facility] [place] [address] * POCT glucose (04/11/2025 4:54 PM CDT) Glucose, POC 194 70 - 199 mg/dL Blood 04/11/2025 4:54 PM CDT 04/11/2025 4:54 PM CDT Ivett Cummings MD LAB POCT ORDERABLES - DEV ICE Final Result ANAND KING ([place]) [address] [facility] [place] [address] * POCT glucose (04/11/2025 11:46 AM CDT) Glucose, POC 140 70 - 199 mg/dL Blood 04/11/2025 11:4 6 AM CDT 04/11/2025 11:46 AM CDT Ivett Cummings MD LAB POCT ORDERABLES - DEV ICE Final Result ANAND KING ([place]) 1 [place] [address] * POCT glucose (04/11/2025 7:58 AM CDT) Glucose, POC 125 70 - 199 mg/dL Blood 04/11/2025 7:58 AM CDT 04/11/2025 7:58 AM CDT Ivett Cummings MD LAB POCT ORDERABLES - DEV ICE Final Result ANAND [facility] ([place]) 1 [place] [address] * eGFR (04/11/2025 2:57 AM CDT) eGFR >90 >=60 mL/min/1. 73 m2 Comment: Interpretive Data Reference Interval Normal >/= 90 mL/min/1.73m2 Mildly decreased* 60 - 89 mL/min/1.73m2 Mildly to moderately decreased 45 - 59 mL/min/1.73m2 Moderately to severely decreased 30 - 44 mL/min/1.73m2 Severely decreased 15 - 29 mL/min/1.73m2 Kidney Failure < 15 mL/min/1.73m2 *Relative to young adult level Estimated glomerular filtration rate is determined by the 2020 CKD-EPI equation recommended by the National Kidney Foundation (A Unifying Approach to GFR Estimation: Recommendations of the NKF-ASK Task Force on Reassessing the Inclusion of Race in Diagnosing Kidney Disease, ELIOSN 2020). The CKD-EPI equation should not be used for patients with unstable renal function and has not been validated in children and those over 70. Current interpretive data was last reviewed 2021. Blood 04/11/2025 2:57 AM CDT 04/11/2025 3:34 AM CDT us Courtney Brower NP LAB BLOOD ORDERABLES Final Resul t [facility] ([place]) 1 [facility] [place] [address] * Differential, auto (04/11/2025 2:57 AM CDT) Neutrophil abs 2.74 1.50 - 6.50 K/cumm Imm gran abs 0.01 0.00 - 0.10 K/cumm [facility] ([place]) Lymphocyte abs 1.96 0.80 - 3.30 K/cumm [facility] ([place]) Monocyte abs 0.51 0.20 - 0.80 K/cumm [facility] ([place]) Eosinophil abs 0.16 0.00 - 0.50 K/cumm [facility] ([place]) Basophil abs 0.04 0.00 - 0.10 K/cumm [facility] ([place]) Neutrophil pct 50.5 % [facility] ([place]) Comment: Interpretive Data Percent cell count reference ranges are not reported, since discordance with absolute values may lead to misinterpretation of CBC data. Current Interpretive Data was last revised on 2017. Imm gran pct 0.2 % [facility] ([place]) Comment: Interpretive Data Percent cell count reference ranges are not reported, since discordance with absolute values may lead to misinterpretation of CBC data. Current Interpretive Data was last revised on 2017. Lymphocyte pct 36.2 % [facility] ([place]) Comment: Interpretive Data Percent cell count reference ranges are not reported, since discordance with absolute values may lead to misinterpretation of CBC data. Current Interpretive Data was last revised on 2017. Monocyte pct 9.4 % [facility] ([place]) Comment: Interpretive Data Percent cell count reference ranges are not reported, since discordance with absolute values may lead to misinterpretation of CBC data. Current Interpretive Data was last revised on 2017. Eosinophil pct 3.0 % [facility] ([place]) Comment: Interpretive Data Percent cell count reference ranges are not reported, since discordance with absolute values may lead to misinterpretation of CBC data. Current Interpretive Data was last revised on 2017. Basophil pct 0.7 % [facility] ([place]) Comment: Interpretive Data Percent cell count reference ranges are not reported, since discordance with absolute values may lead to misinterpretation of CBC data. Current Interpretive Data was last revised on 2017. Blood 04/11/2025 2:57 AM CDT 04/11/2025 3:34 AM CDT us Courtney Brower NP LAB BLOOD ORDERABLES Final Resul t [facility] ([place]) 1 [facility] [place] [address] * (ABNORMAL) CBC with auto differential (04/11/2025 2:57 AM CDT) WBC 5.42 3.80 - 9.90 K/cumm Hgb 11.0(L) 13.0 - 17.5 g/dL [facility] ([place]) Hct 33.5(L) 38.9 - 50.3 % [facility] ([place]) Plt 223 150 - 400 K/cumm [facility] ([place]) MPV 11.3 9.1 - 12.3 fL [facility] ([place]) RBC 4.09(L) 4.30 - 5.80 M/cumm [facility] ([place]) MCV 81.9 81.3 - 96.4 fL [facility] ([place]) MCH 26.9(L) 27.1 - 33.3 pg [facility] ([place]) MCHC 32.8 32.3 - 35.7 g/dL [facility] ([place]) RDW CV 12.8 11.1 - 14.9 % [facility] ([place]) RDW SD 38.2 35.7 - 48.1 fL [facility] ([place]) NRBC abs 0.00 0.00 - 0.01 K/cumm [facility] ([place]) Blood 04/11/2025 2:57 AM CDT 04/11/2025 3:34 AM CDT Oliver Espinosa DPM LAB BLOOD ORDERABLES Final Result [facility] ([place]) 1 [facility] [place] [address] * Basic metabolic panel (04/11/2025 2:57 AM CDT) Sodium 136 135 - 145 mmol/L [facility] ([place]) Potassium, pl 3.6 3.3 - 4.9 mmol/L [facility] ([place]) Chloride 100 97 - 110 mmol/L [facility] ([place]) CO2 25 22 - 32 mmol/L [facility] ([place]) Anion gap 11 2 - 15 mmol/L [facility] ([place]) BUN 22 6 - 25 mg/dL [facility] ([place]) Creatinine 0.87 0.80 - 1.30 mg/dL [facility] ([place]) Glucose 155 70 - 199 mg/dL [facility] ([place]) Comment: Interpretive Data Fasting glucose >/= 126 mg/dl is diagnostic for diabetes. Fasting is defined as no caloric intake for at least 8 hours. Fasting glucose between 100 mg/dl to 125 mg/dl is diagnostic of prediabetes. In a patient with classic symptoms of hyperglycemia or hyperglycemic crisis, a random glucose >/= 200 mg/dl is diagnostic for diabetes. In the absence of unequivocal hyperglycemia, results should be confirmed by repeat testing. The classification and Diagnosis of Diabetes Diabetes Care 2021; 46: S19-S40. Current interpretive data was last revised 2022. Calcium 9.2 8.5 - 10.3 mg/dL [facility] ([place]) Blood 04/11/2025 2:57 AM CDT 04/11/2025 3:34 AM CDT us Oliver Espinosa DPM LAB BLOOD ORDERABLES Final Result [facility] ([place]) [address] [facility] [place] [address] * POCT glucose (04/11/2025 1:52 AM CDT) Glucose, POC 165 70 - 199 mg/dL Blood 04/11/2025 1:52 AM CDT 04/11/2025 1:52 AM CDT us Ivett Cummings MD LAB POCT ORDERABLES - DEV ICE Final Result [facility] ([place]) [address] [facility] [place] [address] * POCT glucose (04/10/2025 8:42 PM CDT) Glucose, POC 142 70 - 199 mg/dL Blood 04/10/2025 8:42 PM CDT 04/10/2025 8:42 PM CDT Ivett Cummings MD LAB POCT ORDERABLES - DEV ICE Final Result A[facility]ND [facility] ([place]) [address] [facility] [place] [address] * POCT glucose (04/10/2025 4:39 PM CDT) Glucose, POC 113 70 - 199 mg/dL Blood 04/10/2025 4:39 PM CDT 04/10/2025 4:39 PM CDT Ivett Cummings MD LAB POCT ORDERABLES - DEV ICE Final Result A[facility]ND [facility] ([place]) [address] [facility] [place] [address] * POCT glucose (04/10/2025 12:04 PM CDT) Glucose, POC 138 70 - 199 mg/dL Blood 04/10/2025 12:0 4 PM CDT 04/10/2025 12:04 PM CDT Ivett Cummings MD LAB POCT ORDERABLES - DEV ICE Final Result [facility] ([place]) [address] [facility] [place] [address] * POCT glucose (04/10/2025 8:00 AM CDT) Glucose, POC 121 70 - 199 mg/dL Blood 04/10/2025 8:00 AM CDT 04/10/2025 8:00 AM CDT Ivett Cummings MD LAB POCT ORDERABLES - DEV ICE Final Result Performing Organization Address City/[facility] Co de Phone Number [facility] ([place]) [address] [place] [address] [place] [address] * eGFR (04/10/2025 3:07 AM CDT) eGFR >90 >=60 mL/min/1. 73 m2 Comment: Interpretive Data Reference Interval Normal >/= 90 mL/min/1.73m2 Mildly decreased* 60 - 89 mL/min/1.73m2 Mildly to moderately decreased 45 - 59 mL/min/1.73m2 Moderately to severely decreased 30 - 44 mL/min/1.73m2 Severely decreased 15 - 29 mL/min/1.73m2 Kidney Failure < 15 mL/min/1.73m2 *Relative to young adult level Estimated glomerular filtration rate is determined by the 2020 CKD-EPI equation recommended by the National Kidney Foundation (A Unifying Approach to GFR Estimation: Recommendations of the NKF-ASK Task Force on Reassessing the Inclusion of Race in Diagnosing Kidney Disease, JASN 2021). The CKD-EPI equation should not be used for patients with unstable renal function and has not been validated in children and those over 70. Current interpretive data was last reviewed 2021. Blood 04/10/2025 3:07 AM CDT 04/10/2025 3:11 AM CDT us Courtney Brower NP LAB BLOOD ORDERABLES Final Resul t [facility] ([place]) 1 [facility] [place] [address] * Differential, auto (04/10/2025 3:07 AM CDT) Neutrophil abs 2.54 1.50 - 6.50 K/cumm Imm gran abs 0.01 0.00 - 0.10 K/cumm [facility] ([place]) Lymphocyte abs 2.03 0.80 - 3.30 K/cumm [facility] ([place]) Monocyte abs 0.48 0.20 - 0.80 K/cumm [facility] ([place]) Eosinophil abs 0.20 0.00 - 0.50 K/cumm [facility] ([place]) Basophil abs 0.03 0.00 - 0.10 K/cumm [facility] ([place]) Neutrophil pct 47.9 % [facility] ([place]) Comment: Interpretive Data Percent cell count reference ranges are not reported, since discordance with absolute values may lead to misinterpretation of CBC data. Current Interpretive Data was last revised on 2017. Imm gran pct 0.2 % [facility] ([place]) Comment: Interpretive Data Percent cell count reference ranges are not reported, since discordance with absolute values may lead to misinterpretation of CBC data. Current Interpretive Data was last revised on 2017. Lymphocyte pct 38.4 % [facility] ([place]) Comment: Interpretive Data Percent cell count reference ranges are not reported, since discordance with absolute values may lead to misinterpretation of CBC data. Current Interpretive Data was last revised on 2017. Monocyte pct 9.1 % [facility] ([place]) Comment: Interpretive Data Percent cell count reference ranges are not reported, since discordance with absolute values may lead to misinterpretation of CBC data. Current Interpretive Data was last revised on 2017. Eosinophil pct 3.8 % [facility] ([place]) Comment: Interpretive Data Percent cell count reference ranges are not reported, since discordance with absolute values may lead to misinterpretation of CBC data. Current Interpretive Data was last revised on 2017. Basophil pct 0.6 % [facility] ([place]) Comment: Interpretive Data Percent cell count reference ranges are not reported, since discordance with absolute values may lead to misinterpretation of CBC data. Current Interpretive Data was last revised on 2017. Blood 04/10/2025 3:07 AM CDT 04/10/2025 3:10 AM CDT us Courtney Brower NP LAB BLOOD ORDERABLES Final Resul t [facility] ([place]) 1 [facility] [place] [address] * (ABNORMAL) CBC with auto differential (04/10/2025 3:07 AM CDT) WBC 5.29 3.80 - 9.90 K/cumm Hgb 10.8(L) 13.0 - 17.5 g/dL [facility] ([place]) Hct 33.1(L) 38.9 - 50.3 % [facility] ([place]) Plt 214 150 - 400 K/cumm [facility] ([place]) MPV 11.0 9.1 - 12.3 fL [facility] ([place]) RBC 4.02(L) 4.30 - 5.80 M/cumm [facility] ([place]) MCV 82.3 81.3 - 96.4 fL [facility] ([place]) MCH 26.9(L) 27.1 - 33.3 pg [facility] ([place]) MCHC 32.6 32.3 - 35.7 g/dL [facility] ([place]) RDW CV 12.7 11.1 - 14.9 % [facility] ([place]) RDW SD 38.2 35.7 - 48.1 fL [facility] ([place]) NRBC abs 0.00 0.00 - 0.01 K/cumm [facility] ([place]) Blood 04/10/2025 3:07 AM CDT 04/10/2025 3:10 AM CDT Oliver Espinosa DPM LAB BLOOD ORDERABLES Final Result [facility] ([place]) 1 [facility] [place] [address] * (ABNORMAL) Basic metabolic panel (04/10/2025 3:07 AM CDT) Sodium 137 135 - 145 mmol/L [facility] ([place]) Potassium, pl 3.8 3.3 - 4.9 mmol/L [facility] ([place]) Chloride 103 97 - 110 mmol/L [facility] ([place]) CO2 24 22 - 32 mmol/L [facility] ([place]) Anion gap 10 2 - 15 mmol/L [facility] ([place]) BUN 20 6 - 25 mg/dL [facility] ([place]) Creatinine 0.74(L) 0.80 - 1.30 mg/dL [facility] ([place]) Glucose 155 70 - 199 mg/dL [facility] ([place]) Comment: Interpretive Data Fasting glucose >/= 126 mg/dl is diagnostic for diabetes. Fasting is defined as no caloric intake for at least 8 hours. Fasting glucose between 100 mg/dl to 125 mg/dl is diagnostic of prediabetes. In a patient with classic symptoms of hyperglycemia or hyperglycemic crisis, a random glucose >/= 200 mg/dl is diagnostic for diabetes. In the absence of unequivocal hyperglycemia, results should be confirmed by repeat testing. The classification and Diagnosis of Diabetes Diabetes Care 2021; 46: S19-S40. Current interpretive data was last revised 2022. Calcium 9.1 8.5 - 10.3 mg/dL [facility] ([place]) Blood 04/10/2025 3:07 AM CDT 04/10/2025 3:11 AM CDT Oliver Espinosa DPSusan LAB BLOOD ORDERABLES Final Result [facility] ([place]) [address] [facility] [place] [address] * POCT glucose (04/10/2025 1:48 AM CDT) Glucose, POC 186 70 - 199 mg/dL Blood 04/10/2025 1:48 AM CDT 04/10/2025 1:48 AM CDT us Cm Neumann Jr., MD LAB POCT ORDERABLES - DEVICE Final Result Performing Organization Address City/[facility]/ZIP Co de Phone Number ANAND [facility] ([place]) [address] [facility] [place] [address] * POCT glucose (04/09/2025 8:45 PM CDT) Glucose, POC 151 70 - 199 mg/dL Blood 04/09/2025 8:45 PM CDT 04/09/2025 8:45 PM CDT us Cm Neumann Jr., MD LAB POCT ORDERABLES - DEVICE Final Result Performing Organization Address City/[facility]/ZIP Co de Phone Number [facility] ([place]) [address] [facility] [place] [address] * (ABNORMAL) POCT glucose (04/09/2025 5:03 PM CDT) Glucose, POC 242(H) 70 - 199 mg/dL Blood 04/09/2025 5:03 PM CDT 04/09/2025 5:03 PM CDT us Cm Neumann Jr., MD LAB POCT ORDERABLES - DEVICE Final Result [facility] ([place]) [address] [facility] [place] [address] * US Arterial Doppler Lower Extremity Bilateral (04/09/2025 3:07 PM CDT) Anatomical Region Laterality Modality Vascular Bilateral Ultrasound 04/09/2025 6:37 PM CDT Narrative 04/09/2025 6:40 PM CDT EXAM DESCRIPTION: US ARTERIAL DOPPLER LOWER EXTREMITY BILATERAL REASON FOR STUDY: Type 2 Diabetes Mellitus with Other Circulatory Complications TECHNIQUE: Grayscale and color images acquired of the lower extremity arteries. Additional selected spectral images recorded. ABIs recorded. COMPARISON: None FINDINGS: RIGHT LEG: FAM: 1.24 INFLOW ARTERIES: Normal, no obstruction evident. FEMORAL ARTERIES: Triphasic waveforms. Normal, no velocity elevation to suggest focal stenosis. Normal color Doppler evaluation. No aneurysm. POPLITEAL ARTERY: Triphasic waveforms. Normal, no velocity elevation to suggest focal stenosis. Normal color Doppler evaluation. No aneurysm. PATENT TIBIOPERONEAL TRUNK AND 3 VESSEL RUNOFF: Yes, normal vessels. TBI: Not performed. OTHER: No other significant finding. LEFT LEG: FAM: 1.11 INFLOW ARTERIES: Normal, no obstruction evident. FEMORAL ARTERIES: Triphasic waveforms. Normal, no velocity elevation to suggest focal stenosis. Normal color Doppler evaluation. No aneurysm. POPLITEAL ARTERY: Triphasic waveforms. Normal, no velocity elevation to suggest focal stenosis. Normal color Doppler evaluation. No aneurysm. PATENT TIBIOPERONEAL TRUNK AND 3 VESSEL RUNOFF: Yes, normal vessels. TBI: Not performed. OTHER: No other significant finding. IMPRESSION: Normal bilateral lower extremity arterial doppler with ABIs. THIS IS AN ELECTRONICALLY VERIFIED FINAL REPORT 04/09/2025 6:40 PM - Electronically signed by Ira Alonzo M.D. FT: FT Report ID: [id number] Reading Location: [id number] Procedure Note Ira Davis MD - 04/09/2025 EXAM DESCRIPTION: US ARTERIAL DOPPLER LOWER EXTREMITY BILATERAL REASON FOR STUDY: Type 2 Diabetes Mellitus with Other Circulatory Complications TECHNIQUE: Grayscale and color images acquired of the lower extremity arteries. Additional selected spectral images recorded. ABIs recorded. COMPARISON: None FINDINGS: RIGHT LEG: FAM: 1.24 INFLOW ARTERIES: Normal, no obstruction evident. FEMORAL ARTERIES: Triphasic waveforms. Normal, no velocity elevation to suggest focal stenosis. Normal color Doppler evaluation. No aneurysm. POPLITEAL ARTERY: Triphasic waveforms. Normal, no velocity elevation to suggest focal stenosis. Normal color Doppler evaluation. No aneurysm. PATENT TIBIOPERONEAL TRUNK AND 3 VESSEL RUNOFF: Yes, normal vessels. TBI: Not performed. OTHER: No other significant finding. LEFT LEG: FAM: 1.11 INFLOW ARTERIES: Normal, no obstruction evident. FEMORAL ARTERIES: Triphasic waveforms. Normal, no velocity elevation to suggest focal stenosis. Normal color Doppler evaluation. No aneurysm. POPLITEAL ARTERY: Triphasic waveforms. Normal, no velocity elevation to suggest focal stenosis. Normal color Doppler evaluation. No aneurysm. PATENT TIBIOPERONEAL TRUNK AND 3 VESSEL RUNOFF: Yes, normal vessels. TBI: Not performed. OTHER: No other significant finding. IMPRESSION: Normal bilateral lower extremity arterial doppler with ABIs. THIS IS AN ELECTRONICALLY VERIFIED FINAL REPORT 04/09/2025 6:40 PM - Electronically signed by Ira Alonzo M.D. FT: FT Report ID: [id number] Reading Location: [place] [address] us Bean John DPM IMG US PROCEDURES Final Result * POCT glucose (04/09/2025 12:08 PM CDT) Pathologist [facility] Glucose, POC 97 70 - 199 mg/dL Blood 04/09/2025 12:0 8 PM CDT 04/09/2025 12:08 PM CDT Cm Neumann Jr., MD LAB POCT ORDERABLES - DEVICE Final Result [facility] ([place]) [facility] [place] [address] * eGFR (04/09/2025 8:24 AM CDT) [facility] eGFR >90 >=60 mL/min/1. 73 m2 Comment: Interpretive Data Reference Interval Normal >/= 90 mL/min/1.73m2 Mildly decreased* 60 - 89 mL/min/1.73m2 Mildly to moderately decreased 45 - 59 mL/min/1.73m2 Moderately to severely decreased 30 - 44 mL/min/1.73m2 Severely decreased 15 - 29 mL/min/1.73m2 Kidney Failure < 15 mL/min/1.73m2 *Relative to young adult level Estimated glomerular filtration rate is determined by the 2020 CKD-EPI equation recommended by the National Kidney Foundation (A Unifying Approach to GFR Estimation: Recommendations of the NKF-ASK Task Force on Reassessing the Inclusion of Race in Diagnosing Kidney Disease, JASN 2020). The CKD-EPI equation should not be used for patients with unstable renal function and has not been validated in children and those over 70. Current interpretive data was last reviewed 2021. Blood 04/09/2025 8:24 AM CDT 04/09/2025 10:05 AM CDT Courtney Brower NP LAB BLOOD ORDERABLES Final Resul t [facility] ([place]) 1 [facility] Department of Laboratories [place], [place] [id number] * Differential, auto (04/09/2025 8:24 AM CDT) Neutrophil abs 2.26 1.50 - 6.50 K/cumm Imm gran abs 0.01 0.00 - 0.10 K/cumm [facility] ([place]) Lymphocyte abs 1.66 0.80 - 3.30 K/cumm [facility] ([place]) Monocyte abs 0.43 0.20 - 0.80 K/cumm [facility] ([place]) Eosinophil abs 0.23 0.00 - 0.50 K/cumm [facility] ([place]) Basophil abs 0.03 0.00 - 0.10 K/cumm [facility] ([place]) Neutrophil pct 49.0 % [facility] ([place]) Comment: Interpretive Data Percent cell count reference ranges are not reported, since discordance with absolute values may lead to misinterpretation of CBC data. Current Interpretive Data was last revised on 2017. Imm gran pct 0.2 % [facility] ([place]) Comment: Interpretive Data Percent cell count reference ranges are not reported, since discordance with absolute values may lead to misinterpretation of CBC data. Current Interpretive Data was last revised on 2017. Lymphocyte pct 35.9 % [facility] ([place]) Comment: Interpretive Data Percent cell count reference ranges are not reported, since discordance with absolute values may lead to misinterpretation of CBC data. Current Interpretive Data was last revised on 2017. Monocyte pct 9.3 % [facility] ([place]) Comment: Interpretive Data Percent cell count reference ranges are not reported, since discordance with absolute values may lead to misinterpretation of CBC data. Current Interpretive Data was last revised on 2017. Eosinophil pct 5.0 % [facility] ([place]) Comment: Interpretive Data Percent cell count reference ranges are not reported, since discordance with absolute values may lead to misinterpretation of CBC data. Current Interpretive Data was last revised on 2017. Basophil pct 0.6 % [facility] ([place]) Comment: Interpretive Data Percent cell count reference ranges are not reported, since discordance with absolute values may lead to misinterpretation of CBC data. Current Interpretive Data was last revised on 2017. Blood 04/09/2025 8:24 AM CDT 04/09/2025 8:52 AM CDT Courtney Brower NP LAB BLOOD ORDERABLES Final Resul t [facility]ND [facility] ([place]) [facility] [place] [address] * (ABNORMAL) CBC with auto differential (04/09/2025 8:24 AM CDT) WBC 4.62 3.80 - 9.90 K/cumm Hgb 10.7(L) 13.0 - 17.5 g/dL [facility] ([place]) Hct 32.8(L) 38.9 - 50.3 % [facility] ([place]) Plt 210 150 - 400 K/cumm [facility] ([place]) MPV 11.3 9.1 - 12.3 fL [facility] ([place]) RBC 3.97(L) 4.30 - 5.80 M/cumm [facility] ([place]) MCV 82.6 81.3 - 96.4 fL [facility] ([place]) MCH 27.0(L) 27.1 - 33.3 pg [facility] ([place]) MCHC 32.6 32.3 - 35.7 g/dL [facility] ([place]) RDW CV 12.7 11.1 - 14.9 % [facility] ([place]) RDW SD 38.5 35.7 - 48.1 fL [facility] NRBC abs 0.00 0.00 - 0.01 K/cumm [facility] ([place]) Blood 04/09/2025 8:24 AM CDT 04/09/2025 8:52 AM CDT Oliver Espinosa DPM LAB BLOOD ORDERABLES Final Result [facility] ([place]) [address] [facility] [place] [address] * Vancomycin level trough (04/09/2025 8:24 AM CDT) Vancomycin trough 11.0 10.0 - 20.0 mcg/mL [facility] ([place]) Blood 04/09/2025 8:24 AM CDT 04/09/2025 8:52 AM CDT Courtney Brower [employer] LAB BLOOD ORDERABLES Final Resul t [facility] ([place]) [address] [facility] [place] [address] * Basic metabolic panel (04/09/2025 8:24 AM CDT) Sodium 140 135 - 145 mmol/L [facility] Potassium, pl 4.0 3.3 - 4.9 mmol/L [facility] ([place]) Chloride 102 97 - 110 mmol/L [facility] ([place]) CO2 23 22 - 32 mmol/L [facility] ([place]) Anion gap 15 2 - 15 mmol/L [facility] ([place]) BUN 18 6 - 25 mg/dL [facility] ([place]) Creatinine 0.82 0.80 - 1.30 mg/dL [facility] ([place]) Glucose 161 70 - 199 mg/dL [facility] ([place]) Comment: Interpretive Data Fasting glucose >/= 126 mg/dl is diagnostic for diabetes. Fasting is defined as no caloric intake for at least 8 hours. Fasting glucose between 100 mg/dl to 125 mg/dl is diagnostic of prediabetes. In a patient with classic symptoms of hyperglycemia or hyperglycemic crisis, a random glucose >/= 200 mg/dl is diagnostic for diabetes. In the absence of unequivocal hyperglycemia, results should be confirmed by repeat testing. The classification and Diagnosis of Diabetes Diabetes Care 2021; 46: S19-S40. Current interpretive data was last revised 2022. Calcium 9.2 8.5 - 10.3 mg/dL [facility] ([place]) Blood 04/09/2025 8:24 AM CDT 04/09/2025 10:05 AM CDT us Oliver Espinosa DPM LAB BLOOD ORDERABLES Final Result Performing Organization Address City/[facility]/ZIP Co de Phone Number [facility] ([place]) 1 [facility] [place] [address] * POCT glucose (04/09/2025 7:52 AM CDT) Glucose, POC 192 70 - 199 mg/dL Blood 04/09/2025 7:52 AM CDT 04/09/2025 7:52 AM CDT us Cm Neumann Jr., MD LAB POCT ORDERABLES - DEVICE Final Result [facility] ([place]) [address] [facility] [place] [address] * POCT glucose (04/09/2025 2:02 AM CDT) Glucose, POC 175 70 - 199 mg/dL Blood 04/09/2025 2:02 AM CDT 04/09/2025 2:02 AM CDT us Cm Neumann Jr., MD LAB POCT ORDERABLES - DEVICE Final Result Performing Organization Address City/[facility]/ZIP Co de Phone Number ANAND [facility] ([place]) [address] [facility] [place] [address] * POCT glucose (04/08/2025 8:42 PM CDT) Glucose, POC 126 70 - 199 mg/dL Blood 04/08/2025 8:42 PM CDT 04/08/2025 8:42 PM CDT us Cm Neumann Jr., MD LAB POCT ORDERABLES - DEVICE Final Result Performing Organization Address [facility] Phone Number [facility] ([place]) [address] [facility] [place] [address] * (ABNORMAL) POCT glucose (04/08/2025 4:26 PM CDT) Glucose, POC 222(H) 70 - 199 mg/dL Blood 04/08/2025 4:26 PM CDT 04/08/2025 4:26 PM CDT Cm Neumann Jr., MD LAB POCT ORDERABLES - DEVICE Final Result Performing Organization Address [facility] Co de Phone Number ANAND [facility] ([place]) [address] [facility] [place] [address] * MRI Foot Right W WO Contrast (04/08/2025 4:04 PM CDT) Anatomical Region Laterality Modality Lower Extremities Right Magnetic Reson ance 04/08/2025 4:08 PM CDT Narrative 04/08/2025 4:22 PM CDT EXAM DESCRIPTION: MRI FOOT RIGHT W WO CONTRAST REASON FOR STUDY: osteomyelitis A week ago pt noticed his right foot bleeding, thereafter, he notes having a smell that came from his foot a few days after the bleeding. He's a diabetic with neuropathy; unknown cause of wound (pill marker), infection reported TECHNIQUE: Multiplanar, multisequence MRI of the right foot was performed without contrast. COMPARISON: None FINDINGS: Bones: No fracture. Marrow edema, confluent T1 marrow replacement and postcontrast enhancement involving the lateral sesamoid concerning for osteomyelitis. There is mild marrow edema, confluent T1 marrow replacement and postcontrast enhancement involving the 5th metatarsal head and proximal phalangeal base concerning for osteomyelitis. There is otherwise normal marrow signal. Articulations: Mild arthritic changes midfoot. Mild arthritic changes 1st metatarsophalangeal articulation. Normal anatomic alignment. Soft Tissues: Circumferential cutaneous thickening, subcutaneous edema and postcontrast enhancement compatible with diffuse cellulitis. No evidence of a drainable fluid collection to suggest the presence of an abscess. Diffuse muscle atrophy and edema suggestive underlying subacute on chronic neuropathy Soft tissue ulceration plantar and aspect of forefoot at the level of the 1st metatarsal head extending to the cortical surface. A sinus tract is seen extending from the ulcer in between the 1st and 2nd metatarsal heads. Additional suspected ulceration plantar aspect of 5th metatarsal base. Correlation with physical examination. Tendons: The flexor and extensor tendons are intact. Mild tenosynovitis of flexor hallucis longus tendon. Infectious tenosynovitis cannot be entirely excluded. Lisfranc Ligament: Intact. IMPRESSION: 1. Lateral sesamoid osteomyelitis. 2. 5th metatarsal head and proximal phalangeal base osteomyelitis. 3. Soft tissue ulceration plantar aspect of forefoot at the level of the 1st metatarsal head extending to the cortical surface. A sinus tract is seen extending from the ulcer in between the 1st and 2nd metatarsal heads. Additional suspected ulceration plantar aspect of 5th metatarsal base. Correlation with physical examination. 4. Diffuse cellulitis. No evidence of a drainable fluid collection to suggest the presence of an abscess. 5. Mild tenosynovitis of flexor hallucis longus tendon. Infectious tenosynovitis cannot be entirely excluded. 6. Diffuse muscle atrophy and edema suggestive of underlying subacute on chronic neuropathy. THIS IS AN ELECTRONICALLY VERIFIED FINAL REPORT 04/08/2025 4:22 PM - Electronically signed by Manny Haddad M.D. JA: ELIO Report ID: [id number] Reading Location: [place] [address] Procedure Note Manny Haddad MD - 04/08/2025 EXAM DESCRIPTION: MRI FOOT RIGHT W WO CONTRAST REASON FOR STUDY: osteomyelitis A week ago pt noticed his right foot bleeding, thereafter, he noteshaving a smell that came from his foot a few days after the bleeding. He's adiabetic with neuropathy; unknown cause of wound (pill marker), infection reported TECHNIQUE: Multiplanar, multisequence MRI of the right foot wasperformed without contrast. COMPARISON: None FINDINGS: Bones: No fracture. Marrow edema, confluent T1 marrow replacement and postcontrast enhancement involving the lateral sesamoid concerning for osteomyelitis. There is mild marrow edema, confluent T1 marrow replacement andpostcontrast enhancement involving the 5th metatarsal head and proximal phalangeal base concerning for osteomyelitis. There is otherwise normal marrow signal. Articulations: Mild arthritic changes midfoot. Mild arthritic [id number] metatarsophalangeal articulation. Normal anatomic alignment. Soft Tissues: Circumferential cutaneous thickening, subcutaneous edemaand postcontrast enhancement compatible with diffuse cellulitis. No evidence of a drainable fluid collection to suggest the presence of an abscess. Diffuse muscle atrophy and edema suggestive underlying subacute on chronic neuropathy Soft tissue ulceration plantar and aspect of forefoot at the level of the1st metatarsal head extending to the cortical surface. A sinus tract is seen extending from the ulcer in between the 1st and 2nd metatarsal heads. Additional suspected ulceration plantar aspect of 5th metatarsal base. Correlation with physical examination. Tendons: The flexor and extensor tendons are intact. Mildtenosynovitis of flexor hallucis longus tendon. Infectious tenosynovitis cannot beentirely excluded. Lisfranc Ligament: Intact. IMPRESSION: 1. Lateral sesamoid osteomyelitis. 2. 5th metatarsal head and proximal phalangeal base osteomyelitis. 3. Soft tissue ulceration plantar aspect of forefoot at the level of the1st metatarsal head extending to the cortical surface. A sinus tract is seen extending from the ulcer in between the 1st and 2nd metatarsal heads. Additional suspected ulceration plantar aspect of 5th metatarsal base. Correlation with physical examination. 4. Diffuse cellulitis. No evidence of a drainable fluid collection to suggest the presence of an abscess. 5. Mild tenosynovitis of flexor hallucis longus tendon. Infectious tenosynovitis cannot be entirely excluded. 6. Diffuse muscle atrophy and edema suggestive of underlying subacute on chronic neuropathy. THIS IS AN ELECTRONICALLY VERIFIED FINAL REPORT 04/08/2025 4:22 PM - Electronically signed by Manny Haddad M.D. JA: ELIO Report ID: [id number] Reading Location: [place] [address] Courtney Brower [employer] IMG MRI PROCEDURES Final Result * POCT glucose (04/08/2025 11:50 AM CDT) Glucose, POC 101 70 - 199 mg/dL Blood 04/08/2025 11:5 0 AM CDT 04/08/2025 11:50 AM CDT Cm Neumann Jr., MD LAB POCT ORDERABLES - DEVICE Final Result Performing Organization Address [facility]/ZIP Co de Phone Number ANAND [facility] ([place]) [address] [facility] [place] [address] * (ABNORMAL) POCT glucose (04/08/2025 7:56 AM CDT) Glucose, POC 223(H) 70 - 199 mg/dL Blood 04/08/2025 7:56 AM CDT 04/08/2025 7:56 AM CDT Cm Neumann Jr., MD LAB POCT ORDERABLES - DEVICE Final Result Performing Organization Address City/[facility]/ZIP Co de Phone Number ANAND [facility] ([place]) [address] [facility] [place] [address] * (ABNORMAL) Iron profile w/ IBC (04/08/2025 7:10 AM CDT) Iron 29(L) 50 - 150 mcg/dL [facility] ([place]) TIBC 135(L) 250 - 400 mcg/dL [facility] ([place]) Transferrin saturation 21 20 - 50 % [facility] ([place]) Blood 04/08/2025 7:10 AM CDT 04/08/2025 7:46 AM CDT Robert Arreola MD LAB BLOOD ORDERABLES Final Resu lt Performing Organization Address City/[facility] Co de Phone Number ANAND [facility] ([place]) [address] [place] [id number] * (ABNORMAL) Hemoglobin A1c (04/08/2025 7:10 AM CDT) Pathologist [facility] Hgb A1C 14.8(H) 4.0 - 5.6 % [facility] ([place]) Estimated Average Glucose 378 mg/dL [facility] ([place]) Comment: The ADA recommends reporting an estimated Average Glucose (eAG) with all Hemoglobin A1c results using the equation derived from a study of 507 normal and diabetic adults. Minority populations were underrepresented and children were not included. (Diabetes Care 31:0321-7032, 2008). The eAG is not equivalent to a fasting glucose. Testing performed by: [facility], [facility], [place], [address] Blood 04/08/2025 7:10 AM CDT 04/08/2025 7:46 AM CDT Robert Arreola MD LAB BLOOD ORDERABLES Final Resu lt [facility] ([place]) 1 [place] [address] * Folate (04/08/2025 7:10 AM CDT) Pathologist [facility] Folic acid 15.2 >=5.0 ng/mL Blood 04/08/2025 7:10 AM CDT 04/08/2025 7:46 AM CDT us Robert Arreola MD LAB BLOOD ORDERABLES Final Resu lt [facility] ([place]) [address] [facility] [place] [address] * Vitamin B12 (04/08/2025 7:10 AM CDT) Vitamin B12 392 230 - 1,250 pg/mL Blood 04/08/2025 7:10 AM CDT 04/08/2025 7:46 AM CDT Robert Arreola MD LAB BLOOD ORDERABLES Final Resu lt Performing Organization Address City/[facility] Co de Phone Number [facility] ([place]) [address] [facility] [place] [address] * eGFR (04/08/2025 3:03 AM CDT) eGFR >90 >=60 mL/min/1. 73 m2 Comment: Interpretive Data Reference Interval Normal >/= 90 mL/min/1.73m2 Mildly decreased* 60 - 89 mL/min/1.73m2 Mildly to moderately decreased 45 - 59 mL/min/1.73m2 Moderately to severely decreased 30 - 44 mL/min/1.73m2 Severely decreased 15 - 29 mL/min/1.73m2 Kidney Failure < 15 mL/min/1.73m2 *Relative to young adult level Estimated glomerular filtration rate is determined by the 2020 CKD-EPI equation recommended by the National Kidney Foundation (A Unifying Approach to GFR Estimation: Recommendations of the NKF-ASK Task Force on Reassessing the Inclusion of Race in Diagnosing Kidney Disease, JASN 2020). The CKD-EPI equation should not be used for patients with unstable renal function and has not been validated in children and those over 70. Current interpretive data was last reviewed 2021. Blood 04/08/2025 3:03 AM CDT 04/08/2025 4:12 AM CDT us Gustavonancy Leonarda REDDING LAB BLOOD ORDERABLES Final Resul t [facility] ([place]) [facility] [place] [address] * Differential, auto (04/08/2025 3:03 AM CDT) Neutrophil abs 3.68 1.50 - 6.50 K/cumm Imm gran abs 0.02 0.00 - 0.10 K/cumm [facility] ([place]) Lymphocyte abs 2.18 0.80 - 3.30 K/cumm [facility] ([place]) Monocyte abs 0.62 0.20 - 0.80 K/cumm [facility] ([place]) Eosinophil abs 0.33 0.00 - 0.50 K/cumm [facility] ([place]) Basophil abs 0.02 0.00 - 0.10 K/cumm [facility] ([place]) Neutrophil pct 53.7 % [facility] ([place]) Comment: Interpretive Data Percent cell count reference ranges are not reported, since discordance with absolute values may lead to misinterpretation of CBC data. Current Interpretive Data was last revised on 2017. Imm gran pct 0.3 % [facility] ([place]) Comment: Interpretive Data Percent cell count reference ranges are not reported, since discordance with absolute values may lead to misinterpretation of CBC data. Current Interpretive Data was last revised on 2017. Lymphocyte pct 31.8 % [facility] ([place]) Comment: Interpretive Data Percent cell count reference ranges are not reported, since discordance with absolute values may lead to misinterpretation of CBC data. Current Interpretive Data was last revised on 2017. Monocyte pct 9.1 % [facility] ([place]) Comment: Interpretive Data Percent cell count reference ranges are not reported, since discordance with absolute values may lead to misinterpretation of CBC data. Current Interpretive Data was last revised on 2017. Eosinophil pct 4.8 % [facility] ([place]) Comment: Interpretive Data Percent cell count reference ranges are not reported, since discordance with absolute values may lead to misinterpretation of CBC data. Current Interpretive Data was last revised on 2017. Basophil pct 0.3 % [facility] ([place]) Comment: Interpretive Data Percent cell count reference ranges are not reported, since discordance with absolute values may lead to misinterpretation of CBC data. Current Interpretive Data was last revised on 2017. Blood 04/08/2025 3:03 AM CDT 04/08/2025 4:11 AM CDT us Courtney Brower NP LAB BLOOD ORDERABLES Final Resul t [facility] ([place]) [facility] [place] [address] * (ABNORMAL) CBC with auto differential (04/08/2025 3:03 AM CDT) WBC 6.85 3.80 - 9.90 K/cumm Hgb 10.1(L) 13.0 - 17.5 g/dL [facility] ([place]) Hct 30.9(L) 38.9 - 50.3 % [facility] ([place]) Plt 180 150 - 400 K/cumm [facility] ([place]) MPV 11.6 9.1 - 12.3 fL [facility] ([place]) RBC 3.75(L) 4.30 - 5.80 M/cumm [facility] [facility] ([facility]) MCV 82.4 81.3 - 96.4 fL [facility] ([place]) MCH 26.9(L) 27.1 - 33.3 pg [facility] ([place]) MCHC 32.7 32.3 - 35.7 g/dL [facility] ([place]) RDW CV 12.8 11.1 - 14.9 % [facility] ([place]) RDW SD 38.6 35.7 - 48.1 fL [facility] ([place]) NRBC abs 0.00 0.00 - 0.01 K/cumm [facility] ([place]) Blood 04/08/2025 3:03 AM CDT 04/08/2025 4:11 AM CDT us Oliver Espinosa DPM LAB BLOOD ORDERABLES Final Result ANAND [facility] ([place]) 1 [facility] [employer] [place] [address] * (ABNORMAL) Basic metabolic panel (04/08/2025 3:03 AM CDT) Sodium 134(L) 135 - 145 mmol/L [facility] ([place]) Potassium, pl 4.1 3.3 - 4.9 mmol/L [facility] ([place]) Chloride 98 97 - 110 mmol/L [facility] ([place]) CO2 23 22 - 32 mmol/L [facility] ([place]) Anion gap 13 2 - 15 mmol/L [facility] ([place]) BUN 15 6 - 25 mg/dL [facility] ([place]) Creatinine 0.79(L) 0.80 - 1.30 mg/dL [facility] ([place]) Glucose 227(H) 70 - 199 mg/dL [facility] ([place]) Comment: Interpretive Data Fasting glucose >/= 126 mg/dl is diagnostic for diabetes. Fasting is defined as no caloric intake for at least 8 hours. Fasting glucose between 100 mg/dl to 125 mg/dl is diagnostic of prediabetes. In a patient with classic symptoms of hyperglycemia or hyperglycemic crisis, a random glucose >/= 200 mg/dl is diagnostic for diabetes. In the absence of unequivocal hyperglycemia, results should be confirmed by repeat testing. The classification and Diagnosis of Diabetes Diabetes Care 2021; 46: S19-S40. Current interpretive data was last revised 2022. Calcium 8.9 8.5 - 10.3 mg/dL [facility] ([place]) Blood 04/08/2025 3:03 AM CDT 04/08/2025 4:12 AM CDT us Oliver Espinosa DPM LAB BLOOD ORDERABLES Final Result [facility] ([place]) 1 [facility] [employer] [address] * (ABNORMAL) POCT glucose (04/08/2025 2:06 AM CDT) Glucose, POC 219(H) 70 - 199 mg/dL Blood 04/08/2025 2:06 AM CDT 04/08/2025 2:06 AM CDT Robert Arreola MD LAB POCT ORDERABLES - DEVICE Fi nal Result [facility]ND [facility] ([place]) [address] [facility] [place] [address] * (ABNORMAL) POCT glucose (04/07/2025 11:16 PM CDT) Glucose, POC 239(H) 70 - 199 mg/dL Blood 04/07/2025 11:1 6 PM CDT 04/07/2025 11:16 PM CDT Robert Arreola MD LAB POCT ORDERABLES - DEVICE Fi nal Result Performing Organization Address City/[facility] Co de Phone Number ANAND [facility] ([place]) [address] [facility] [place] [address] * (ABNORMAL) POCT glucose (04/07/2025 9:12 PM CDT) Glucose, POC 259(H) 70 - 199 mg/dL Blood 04/07/2025 9:12 PM CDT 04/07/2025 9:12 PM CDT Robert Arreola MD LAB POCT ORDERABLES - DEVICE Fi nal Result Performing Organization Address City/[facility] Co de Phone Number ANAND [facility] ([place]) [address] [facility] [place] [address] * (ABNORMAL) POCT glucose (04/07/2025 7:22 PM CDT) Glucose, POC 222(H) 70 - 199 mg/dL Blood 04/07/2025 7:22 PM CDT 04/07/2025 7:22 PM CDT Notinfile Unknown LAB POCT ORDERABLES - DEVICE F inal Result ANAND [facility] ([place]) 1 [facility] [place] [address] * Blood culture Blood (04/07/2025 6:40 PM CDT) Report Final Report: No growth Comment:Testing performed by : [facility], [address] [place]., [address] Blood 04/07/2025 6:40 PM CDT 04/07/2025 8:36 PM CDT Narrative ANAND CHRISTINE ([place]) - 04/12/2025 7:00 AM CDT Collection->Peripheral 1. Blood cultures are incubated for 4 days on a continuously monitored blood culture system. The first report of a negative culture is issued within 24 hours of receipt of the specimen in the laboratory. 2. Positive culture results are reported as soon as they are detected. 3. The most important factor for detection of microbes in the setting of bloodstream infection is the volume of blood submitted for culture. Failure to collect an optimal blood volume can result in false negative blood cultures. 4. For pediatric patients, the recommended blood volume to collect follows a weight based strategy. See the electronic test catalog for collection instructions. 5. For positive blood cultures, a rapid molecular test may be performed for organism identification using the mary ePlex blood culture identification panel for gram positive (BCID-GP) and gram negative (BCID-GN) organisms. This nucleic acid amplification test detects microbial DNA in positive blood culture broth. This assay has been cleared by the [place] Food and Drug Administration and its performance characteristics have been verified by the [facility]. For questions about this culture, contact the Microbiology Laboratory at [phone]. Interpretive data was last revised on 24. Josselyn UNDERWOOD LAB MICROBIOLOGY - GENERAL ORDE JAYDON Final Result ANAND [facility] ([place]) 1 [facility] [place] [place] [address] * (ABNORMAL) POCT glucose (04/07/2025 4:51 PM CDT) Glucose, POC 419(H) 70 - 199 mg/dL Blood 04/07/2025 4:51 PM CDT 04/07/2025 4:51 PM CDT Notinfile Unknown LAB POCT ORDERABLES - DEVICE F inal Result Performing Organization Address City/[facility]/ZIP Co de Phone Number ANAND [facility] ([place]) 1 [facility] [place] [address] * XR Foot Right 3 or More Views (04/07/2025 4:37 PM CDT) Anatomical Region Laterality Modality Lower Extremities, Foot Right Computed Radiography 04/07/2025 6:42 PM CDT Narrative 04/07/2025 6:43 PM CDT EXAM DESCRIPTION: XR FOOT RIGHT 3 OR MORE VIEWS REASON FOR STUDY: Large wound plantar aspect concern for osteo Patient is a pleasant 54-year-old presents emergency room for evaluation of wounds to feet. Right and left feet has chronic wound inflammation and concern for infection. Patient is a diabetic but states he has not seen his primary care doctor in awhile. Unknown what his blood sugar is. History of neuropathy also. TECHNIQUE: 3 radiographic view(s) of the right foot . COMPARISON: None FINDINGS: Soft tissue swelling of the distal foot is noted. No air is seen in the soft tissues. Ulceration of the plantar aspect of the distal foot is seen in the lateral view. There is erosion of the distal head of the 5th metatarsal questioned. Other bones appear to be intact. No fracture is seen. IMPRESSION: 1. Soft tissue swelling with ulceration of the plantar aspect of the distal foot. 2. Erosion of the distal head of the 5th metatarsal is questioned. Osteomyelitis is a concern. MRI is suggested for further evaluation. THIS IS AN ELECTRONICALLY VERIFIED FINAL REPORT 04/07/2025 6:43 PM - Electronically signed by Sourav LOCKE: CHUCKY Report ID: [id number] Reading Location: [id number] Procedure Note Sourav Addison MD - 04/07/2025 EXAM DESCRIPTION: XR FOOT RIGHT 3 OR MORE VIEWS REASON FOR STUDY: Large wound plantar aspect concern for osteo Patient is a pleasant 54-year-old presents emergency room for evaluationof wounds to feet. Right and left feet has chronic wound inflammation andconcern for infection. Patient is a diabetic but states he has not seen hisprimary care doctor in awhile. Unknown what his blood sugar is. History of neuropathy also. TECHNIQUE: 3 radiographic view(s) of the right foot . COMPARISON: None FINDINGS: Soft tissue swelling of the distal foot is noted. No air is seen in thesoft tissues. Ulceration of the plantar aspect of the distal foot is seen inthe lateral view. There is erosion of the distal head of the 5th metatarsal questioned. Other bones appear to be intact. No fracture is seen. IMPRESSION: 1. Soft tissue swelling with ulceration of the plantar aspect of thedistal foot. 2. Erosion of the distal head of the 5th metatarsal is questioned. Osteomyelitis is a concern. MRI is suggested for further evaluation. THIS IS AN ELECTRONICALLY VERIFIED FINAL REPORT 04/07/2025 6:43 PM - Electronically signed by Sourav LOCKE: CHUCKY Report ID: [id number] Reading Location: [id number] us Steven [facility] IM XR PROCEDURE S Final Result * XR Foot Left 3 or More Views (04/07/2025 4:37 PM CDT) Anatomical Region Laterality Modality Lower Extremities, Foot Left Computed Radiography 04/07/2025 6:32 PM CDT Narrative 04/07/2025 6:44 PM CDT EXAM DESCRIPTION: XR FOOT LEFT 3 OR MORE VIEWS REASON FOR STUDY: Large wound plantar aspect left foot, rule out osteo Patient is a pleasant 54-year-old presents emergency room for evaluation of wounds to feet. Right and left feet has chronic wound inflammation and concern for infection. Patient is a diabetic but states he has not seen his primary care doctor in awhile. Unknown what his blood sugar is. History of neuropathy also. TECHNIQUE: 3 radiographic view(s) of the left foot . COMPARISON: None FINDINGS: Soft tissue swelling is seen of the distal plantar aspect of the foot along with the lateral aspect of the distal foot. No definite erosions are seen. No fracture or dislocation is identified. No air is seen in the soft tissues. MRI may be helpful for further evaluation. IMPRESSION: Soft tissue swelling is noted. No definite erosions are seen. MRI may be helpful for further evaluation. THIS IS AN ELECTRONICALLY VERIFIED FINAL REPORT 04/07/2025 6:44 PM - Electronically signed by Sourav Addison M.D. KH: CHUCKY Report ID: [id number] Reading Location: [place] [address] Procedure Note Sourav Addison MD - 04/07/2025 EXAM DESCRIPTION: XR FOOT LEFT 3 OR MORE VIEWS REASON FOR STUDY: Large wound plantar aspect left foot, rule out osteo Patient is a pleasant 54-year-old presents emergency room for evaluationof wounds to feet. Right and left feet has chronic wound inflammation andconcern for infection. Patient is a diabetic but states [facility] [place] Unknown what his blood sugar is. History of neuropathy also. TECHNIQUE: 3 radiographic view(s) of the left foot . COMPARISON: None FINDINGS: Soft tissue swelling is seen of the distal plantar aspect of the footalong with the lateral aspect of the distal foot. No definite erosions areseen. No fracture or dislocation is identified. No air is seen in the softtissues. MRI may be helpful for further evaluation. IMPRESSION: Soft tissue swelling is noted. No definite erosions are seen. MRI may be helpful for further evaluation. THIS IS AN ELECTRONICALLY VERIFIED FINAL REPORT 04/07/2025 6:44 PM - Electronically signed by Sourav LOCKE: CHUCKY Report ID: [id number] Reading Location: [id number] Franklynamerica Mcdaniel Ryder [facility] IMG XR PROCEDURE S Final Result * US Vein Duplex Lower Extremity Bilateral Complete (04/07/2025 4:36 PM CDT) Anatomical Region Laterality Modality Vascular Bilateral Ultrasound 04/07/2025 6:27 PM CDT Narrative 04/07/2025 6:32 PM CDT EXAM DESCRIPTION: US VEIN DUPLEX LOWER EXTREMITY BILATERAL COMPLETE REASON FOR STUDY: History of DVT, bilateral leg swelling, no recent medicines TECHNIQUE: Grayscale, color and spectral Doppler imaging of the deep venous system of the bilateral lower extremities was performed. Images stored on PACS. COMPARISON: 11/13/2019 FINDINGS: Chronic thrombus is questioned within the right greater saphenous vein with lack of compression evident. Calf veins are not well visualized. Other bilateral deep veins appear patent. IMPRESSION: No lower extremity deep venous thrombosis. 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 THIS IS AN ELECTRONICALLY VERIFIED FINAL REPORT 04/07/2025 6:32 PM - Electronically signed by Sourav LOCKE: CHUCKY Report ID: [id number] Reading Location: [id number] Procedure Note Sourav Addison MD - 04/07/2025 EXAM DESCRIPTION: US VEIN DUPLEX LOWER EXTREMITY BILATERAL COMPLETE REASON FOR STUDY: History of DVT, bilateral leg swelling, no recent medicines TECHNIQUE: Grayscale, color and spectral Doppler imaging of the deepvenous system of the bilateral lower extremities was performed. Images stored onPACS. COMPARISON: 11/13/2019 FINDINGS: Chronic thrombus is questioned within the right greater saphenous veinwith lack of compression evident. Calf veins are not well visualized. Other bilateral deep veins appear patent. IMPRESSION: No lower extremity deep venous thrombosis. 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 THIS IS AN ELECTRONICALLY VERIFIED FINAL REPORT 04/07/2025 6:32 PM - Electronically signed by Sourav Addison M.D. KH: CHUCKY Report ID: [id number] Reading Location: [place] [address] us Steven [facility] IMG US PROCEDURE S Final Result * Sepsis Lactate w/ Reflex (04/07/2025 2:35 PM CDT) Sepsis Lactate 0.9 0.7 - 2.0 mmol/L Blood 04/07/2025 2:35 PM CDT 04/07/2025 2:37 PM CDT us Josselyn UNDERWOOD LAB BLOOD ORDERABLES Final Resu lt ANAND [facility] ([place]) 1 [facility] [place] [address] * eGFR (04/07/2025 2:35 PM CDT) eGFR >90 >=60 mL/min/1. 73 m2 Comment: Interpretive Data Reference Interval Normal >/= 90 mL/min/1.73m2 Mildly decreased* 60 - 89 mL/min/1.73m2 Mildly to moderately decreased 45 - 59 mL/min/1.73m2 Moderately to severely decreased 30 - 44 mL/min/1.73m2 Severely decreased 15 - 29 mL/min/1.73m2 Kidney Failure < 15 mL/min/1.73m2 *Relative to young adult level Estimated glomerular filtration rate is determined by the 2020 CKD-EPI equation recommended by the National Kidney Foundation (A Unifying Approach to GFR Estimation: Recommendations of the NKF-ASK Task Force on Reassessing the Inclusion of Race in Diagnosing Kidney Disease, JASN 2020). The CKD-EPI equation should not be used for patients with unstable renal function and has not been validated in children and those over 70. Current interpretive data was last reviewed 2021. Blood 04/07/2025 2:35 PM CDT 04/07/2025 2:37 PM CDT us Josselyn UNDERWOOD LAB BLOOD ORDERABLES Final Resu lt ANAND [facility] ([place]) 1 [facility] [place] [address] * (ABNORMAL) Differential, auto (04/07/2025 2:35 PM CDT) Neutrophil abs 8.60(H) 1.50 - 6.50 K/cumm Imm gran abs 0.03 0.00 - 0.10 K/cumm [facility] ([place]) Lymphocyte abs 1.19 0.80 - 3.30 K/cumm [facility] ([place]) Monocyte abs 0.82(H) 0.20 - 0.80 K/cumm [facility] ([place]) Eosinophil abs 0.10 0.00 - 0.50 K/cumm [facility] ([place]) Basophil abs 0.03 0.00 - 0.10 K/cumm [facility] ([place]) Neutrophil pct 79.9 % [facility] R [facility] ([place]) Comment: Interpretive Data Percent cell count reference ranges are not reported, since discordance with absolute values may lead to misinterpretation of CBC data. Current Interpretive Data was last revised on 2017. Imm gran pct 0.3 % [facility] ([place]) Comment: Interpretive Data Percent cell count reference ranges are not reported, since discordance with absolute values may lead to misinterpretation of CBC data. Current Interpretive Data was last revised on 2017. Lymphocyte pct 11.0 % [facility] ([place]) Comment: Interpretive Data Percent cell count reference ranges are not reported, since discordance with absolute values may lead to misinterpretation of CBC data. Current Interpretive Data was last revised on 2017. Monocyte pct 7.6 % [facility] ([place]) Comment: Interpretive Data Percent cell count reference ranges are not reported, since discordance with absolute values may lead to misinterpretation of CBC data. Current Interpretive Data was last revised on 2017. Eosinophil pct 0.9 % [facility] ([place]) Comment: Interpretive Data Percent cell count reference ranges are not reported, since discordance with absolute values may lead to misinterpretation of CBC data. Current Interpretive Data was last revised on 2017. Basophil pct 0.3 % [facility] ([place]) Comment: Interpretive Data Percent cell count reference ranges are not reported, since discordance with absolute values may lead to misinterpretation of CBC data. Current Interpretive Data was last revised on 2017. Blood 04/07/2025 2:35 PM CDT 04/07/2025 2:37 PM CDT us Josselyn UNDERWOOD LAB BLOOD ORDERABLES Final Resu lt [facility]NAND [facility] ([place]) 1 [facility] [place] [address] * (ABNORMAL) CBC with auto differential (04/07/2025 2:35 PM CDT) WBC 10.77(H) 3.80 - 9.90 K/cumm Hgb 10.8(L) 13.0 - 17.5 g/dL [facility] ([place]) Hct 31.6(L) 38.9 - 50.3 % [facility] ([place]) Plt 183 150 - 400 K/cumm [facility] ([place]) MPV 11.4 9.1 - 12.3 fL [facility] ([place]) RBC 3.93(L) 4.30 - 5.80 M/cumm [facility] ([place]) MCV 80.4(L) 81.3 - 96.4 fL [facility] ([place]) MCH 27.5 27.1 - 33.3 pg [facility] ([place]) MCHC 34.2 32.3 - 35.7 g/dL [facility] ([place]) RDW CV 12.6 11.1 - 14.9 % [facility] ([place]) RDW SD 36.6 35.7 - 48.1 fL [facility] ([place]) NRBC abs 0.00 0.00 - 0.01 K/cumm ANAND [facility] ([place]) Blood 04/07/2025 2:35 PM CDT 04/07/2025 2:37 PM CDT Josselyn UNDERWOOD LAB BLOOD ORDERABLES Final Resu lt ANAND [facility] ([place]) 1 [facility] [place] [address] * Blood culture Blood (04/07/2025 2:35 PM CDT) Report Final Report: No growth Comment:Testing performed by : [facility], [address] [place]., [address] Blood 04/07/2025 2:35 PM CDT 04/07/2025 8:36 PM CDT Narrative ANAND KING ([place]) - 04/12/2025 7:00 AM CDT Collection->Peripheral 1. Blood cultures are incubated for 4 days on a continuously monitored blood culture system. The first report of a negative culture is issued within 24 hours of receipt of the specimen in the laboratory. 2. Positive culture results are reported as soon as they are detected. 3. The most important factor for detection of microbes in the setting of bloodstream infection is the volume of blood submitted for culture. Failure to collect an optimal blood volume can result in false negative blood cultures. 4. For pediatric patients, the recommended blood volume to collect follows a weight based strategy. See the electronic test catalog for collection instructions. 5. For positive blood cultures, a rapid molecular test may be performed for organism identification using the mary ePlex blood culture identification panel for gram positive (BCID-GP) and gram negative (BCID-GN) organisms. This nucleic acid amplification test detects microbial DNA in positive blood culture broth. This assay has been cleared by the [place] Food and Drug Administration and its performance characteristics have been verified by the [facility]. For questions about this culture, contact the Microbiology Laboratory at [phone]. Interpretive data was last revised on 24. us Josselyn UNDER[facility]OD LAB MICROBIOLOGY - GENERAL ORDGrisel INTERIANO Final Result ANAND [facility] ([place]) 1 [facility] [place] [address] * (ABNORMAL) Comprehensive metabolic panel (04/07/2025 2:35 PM CDT) Sodium 127(L) 135 - 145 mmol/L [facility] ([place]) Potassium, pl 4.5 3.3 - 4.9 mmol/L [facility] ([place]) Chloride 91(L) 97 - 110 mmol/L [facility] ([place]) CO2 21(L) 22 - 32 mmol/L [facility] ([place]) Anion gap 15 2 - 15 mmol/L [facility] ([place]) BUN 17 6 - 25 mg/dL [facility] ([place]) Creatinine 0.84 0.80 - 1.30 mg/dL [facility] ([place]) Glucose 525(C) 70 - 199 mg/dL [facility] ([place]) Comment: Critical Result called by [id number] at 2025-04-07 15:01:55. Result Read Back by hollie krause/rey Interpretive Data Fasting glucose >/= 126 mg/dl is diagnostic for diabetes. Fasting is defined as no caloric intake for at least 8 hours. Fasting glucose between 100 mg/dl to 125 mg/dl is diagnostic of prediabetes. In a patient with classic symptoms of hyperglycemia or hyperglycemic crisis, a random glucose >/= 200 mg/dl is diagnostic for diabetes. In the absence of unequivocal hyperglycemia, results should be confirmed by repeat testing. The classification and Diagnosis of Diabetes Diabetes Care 202; 46: S19-S40. Current interpretive data was last revised 2022. Calcium 9.5 8.5 - 10.3 mg/dL [facility] ([place]) Bilirubin, total 1.0 0.1 - 1.2 mg/dL [facility] ([place]) Protein, pl 8.2 6.5 - 8.5 g/dL [facility] ([place]) Albumin 3.7 3.5 - 5.0 g/dL [facility] ([place]) Alk phos 127 40 - 130 Units/L [facility] ([place]) ALT 22 7 - 55 Units/L [facility] ([place]) AST 15 10 - 50 Units/L [facility] ([place]) Blood 04/07/2025 2:35 PM CDT 04/07/2025 2:37 PM CDT us Josselyn UNDERWOOD LAB BLOOD ORDERABLES Final Resu lt ANAND [facility] ([place]) [address] [facility] [place] [address] * (ABNORMAL) CRP (acute phase) (04/07/2025 2:33 PM CDT) CRP 98.7(H) <=10.0 mg/L ANAND [facility] ([place]) Blood 04/07/2025 2:33 PM CDT 04/07/2025 5:44 PM CDT us Steven UNDER[facility]OD LAB BLOOD ORDERA BLES Final Result Performing Organization Address [facility] Co de Phone Number ANAND [facility] ([place]) [address] [facility] [place] [address] * COLONOSCOPY (10/10/2021 9:12 AM AMBULATORY TECHNOLOGIST) Anatomical Region Laterality Modality Other Narrative Procedure Note Evon Arroyo MD - 10/10/2021 9:12 AM CST [facility] Patient Name: Jzazy Ayers Procedure Date: 10/10/2021 9:12 AM Date of : 1970 Admit Type: Outpatient Age: 51 Gender: Male Attending MD: Evon Arroyo M.D. Room: [facility] ENDOSCOPY ROOM 1 Note Status: Finalized Patient Profile: This is a 51 year old male. His mother had colon cancer. Noted positive colo guard test recently Procedure: Colonoscopy Indications: Screening in patient at increased risk: Familyhistory of 1st-degree relative with colorectal cancerbefore age 60 years, This is the patient's firstcolonoscopy Referring MD: Ladonna Aguilar M.D. Providers: Evon Arroyo M.D. Impression: - One 14 mm polyp in the cecum, removed with a cold snare. Resected and retrieved. - One 6 mm polyp in the ascending colon, removedwith a jumbo cold forceps. Resected and retrieved. - One 8 mm polyp in the sigmoid colon, removed witha cold snare. Resected and retrieved. - The rectum is normal. Recommendation: - Await pathology results. - Repeat colonoscopy in 3 years for screeningpurposes. - Continue present medications. Medicines: Monitored Anesthesia Care Complications: No immediate complications. Estimated Blood Loss: Estimated blood loss: none. Procedure: Pre-Anesthesia Assessment: - Prior to the procedure, a History and Physicalwas performed, and patient medications and allergieswere reviewed. The patient's tolerance of previous anesthesia was also reviewed. The risks andbenefits of the procedure and the sedation options and risks were discussed with the patient. All questions were answered, and informed consent was obtained. Prior Anticoagulants: The patient has taken no previous anticoagulant or antiplatelet agents. ASA Grade Assessment: III - A patient with severe systemic disease. After reviewing the risks and benefits,the patient was deemed in satisfactory condition to undergo the procedure. The benefits, risks and alternatives of theprocedure and sedation were discussed and informed consentwas obtained. All questions were answered. Please referto the signed informed consent document in the medical record. The bowel preparation used was Miralax via split dose instruction. The bowel preparation usedwas bisacodyl tablets via split dose instruction. The scope was passed under direct vision. The Pediatric Colonoscope PCF-H190L [id number] was introducedthrough the anus and advanced to the the cecum, identifiedby appendiceal orifice and ileocecal valve. Thequality of the bowel preparation was excellent. Bowel prepwas administered using a split dose. Findings: The perianal and digital rectal examinations were normal. The appendiceal orifice appeared normal. A 14 mm polyp was found in the cecum. The polyp was sessile. Thepolyp was removed with a cold snare. Resection and retrieval werecomplete. A 6 mm polyp was found in the ascending colon. The polyp was flat.The polyp was removed with a jumbo cold forceps. Resection and retrieval were complete. The descending colon and transverse colon appeared normal. A 8 mm polyp was found in the sigmoid colon. The polyp was sessile.The polyp was removed with a cold snare. Resection and retrieval were complete. The rectum appeared normal. Retroflexion of the rectum wasunremarkable. Electronically signed by Evon Arroyo M.D. Evon Arroyo M.D. 10/10/2021 10:24:01 AM Number of Addenda: 0 Note Initiated On: 10/10/2021 9:12 AM Procedure Code(s): --- Professional --- 52789, Colonoscopy, flexible; with removal of tumor(s), polyp(s), or other lesion(s) by snare technique 29315, 59, Colonoscopy, flexible; with biopsy, single or multiple Diagnosis Code(s): --- Professional --- Z80.0, Family history of malignant neoplasm of digestive organs K63.5, Polyp of colon CPT copyright 2019 [employer]. All rights reserved. The codes documented in this report are preliminary and upon billet bed operator reviewmay be revised to meet current compliance requirements. Recognized by the [employer] for promoting quality in endoscopy Evon Arroyo MD ENDOSCOPY PROCEDURES Final Result * Diabetic Eye Exam (06/07/2021) Historical Provider HEALTH MAINTENANCE Final Result from Last 3 Months or Most Recently Relevant to Health Maintenance Insurance [facility] Advance Directives For more information, please contact: [phone] * Full Code (Latest Code Status on File) Date Activated Date Inactivated Comments 04/07/2025 8:33 PM 04/19/2025 7:39 PM * Full Code Date Activated Date Inactivated Comments 10/10/2021 8:45 AM 10/10/2021 3:40 PM * Full Code Date Activated Date Inactivated Comments 10/10/2021 8:45 AM 10/10/2021 8:45 AM Care Teams Churn Driller Helper Relationship Specialty Start Date End Date Dalton Mahoney MD [address] [place] [address] [place] [address] PCP - General Family Medicine 04/10/25 Diaz Khoury NP [address] [place] [address] DR ALANA GRIGSBY [address] [place] [id number] Internal Medicine 02/20/21 Diaz Khoury NP [address] [place] [address] DR ALANA GRIGSBY [address] [place] [id number] Internal Medicine 06/10/17
--- OUTSIDE RECORDS SUMMARY | 2025-06-21 16:38 | XMS_ITS ---
Author Organization [facility] Address [address] [place] [address] Phone Care Team Providers Care Millinery Designer Name Role Phone Diaz Khoury APRN, DANETTE Primary Care Provider + OnCall Chronic Condition Monitoring Status:Enrolled (Active) Start date:08/07/2023 Enrollment date:08/08/2023 Current support & services provided:Diabetes Management Related social drivers of health:Intimate Partner Violence, Social Connections, Alcohol Use, Tobacco Use, Financial Resource Strain,Depression, Stress, Physical Activity, Food Insecurity, Transportation Needs, Housing Stability, Utilities Continued Care and Services Coordination
--- OUTSIDE RECORDS SUMMARY | 2025-06-21 16:38 | XMS_ITS | Encounter Summary ---
Author Organization [facility] Address [address] [facility] [place] [address] Phone Care Team Providers Care Caustic Strength Inspector Name Role Phone Diaz Khoury APRN, FITNESS FLOOR ATTENDANT Primary Care Provider + Lazaro Pagan MD Unavailable Reason for Visit * Reason Comments Medication Refill Encounter Details Date Type Department Care Team (Late st Contact Info) Description 01/26/2022 Refill [facility] - Endocrinology [facility] [address] [place] [address] Lazaro Pagan MD [address] [address] Medication Refill Social History Tobacco Use Types Packs/Day Years Used Date Smoking Tobacco: Never Smokeless Tobacco: Never Alcohol Use Standard Drinks/Week Comments No 0 (1 standard drink = 0.6 oz pur e alcohol) Sexually Active Control Partners Comments Never Sex and Gender Information Value Date Recorded Sex Assigned at Not on file Legal Sex Male 7:12 PM CDT Gender Identity Not on file Sexual Orientation Not on file documented as of this encounter Miscellaneous Notes * Telephone Encounter - Josselyn Finley RN - 01/31/2022 1:18 PM CDT Requested Prescriptions Pending Prescriptions Disp Refills ??? Insulin Lispro, 1 Unit Dial, 100 UNIT/ML Solution Pen-injector [Pharmacy Med Name: INSULIN LISPRO 100 UNIT/ML PEN] 3 Sig: ISF OF 1:15 IF >140 MG/DL. UP TO 30 UNITS/DAY ??? glipiZIDE (GLUCOTROL) 10 MG Tablet [Pharmacy Med Name: GLIPIZIDE 10 MG TABLET] 180 Tablet 1 Sig: TAKE 1 TABLET BY MOUTH TWICE A DAY Next appt: 03/30/2022 documented in this encounter Plan of Treatment Not on file documented as of this encounter Visit Diagnoses Not on filedocumented in this encounter Care Teams Caustic Strength Inspector Relationship Specialty Start Date End Date Diaz Khoury APRN, DANETTE [address] [place] [address] PCP - General Internal Medicine 02/21/16 Lazaro Pagan MD [address] [phone] Consulting Physician Endocrinology 03/20/22 10/12/24 documented as of this encounter
--- OUTSIDE RECORDS SUMMARY | 2025-06-21 16:38 | XMS_ITS | Clinical Summary ---
Author Organization [facility] Address [address] [place] [address] Phone Care Team Providers Care Stocking And Box Shop Supervisor Name Role Phone Diaz Khoury APRN, PUSH BENCH OPERATOR HELPER Primary Care Provider + Allergies No known active allergies Medications miconazole (QUE; MICATIN) 2 % Cream Application Site: feet and between the toes (Description and Location) 30 g 9 Active rivaroxaban (XARELTO) 10 MG Tablet 10 mg. 0 Active glucagon, rDNA, 1 MG Kit 1 Active HYDROcodone-steff taminophen (NORCO) 5-325 MG Tablet Take 1-2 Tablets by mouth. 1 Active naproxen (NAPROSYN) 500 MG Tablet Take 500 mg by mouth. 1 Active terbinafine (LamISIL) 250 MG Tablet TAKE 1 TABLET BY MOUTH EVERY DAY FOR 84 DAYS 2 Active Insulin Pen Needle (BD AutoShield Duo) 30G X 5 MM Misc 4 times a day 400 Each 3 2 Active Blood Glucose Monitoring Suppl (OneTouch Verio) w/Device Kit 1 Kit by Does not apply route daily. Test blood glucose 4x daily. 1 Kit 2 Active OneTouch Delica Lancets 33G Misc 1 Lancet by Does not apply route 4 times daily. Test blood glucose 4x daily. 400 Lancet 3 2 Active insulin glargine (Lantus SoloStar) 100 UNIT/ML Solution Pen-injector 50 Units by Subcutaneous route every evening. 45 mL 1 2 Active metFORMIN (GLUCOPHAGE) 500 MG Tablet Take 1 Tablet by mouth 2 times daily (with meals). 180 Tablet 1 2 Active liraglutide (Victoza) 18 MG/3ML Solution Pen-injector 1.8 mg SC daily 27 mL 1 3 Active Insulin Lispro, 1 Unit Dial, (HumaLOG KwikPen) 100 UNIT/ML Solution Pen-injector 14 UNITS BEFORE EACH MEAL ISF OF 1:15 IF >140 MG/DL. UP TO 90 UNITS/DAY 90 mL 1 3 Active Additional Information Patient taking differently: 18 UNITS BEFORE EACH MEAL ISF OF 1:15 IF >140 MG/DL. UP TO 90 UNITS/DAY, Reported on 07/19/2023 atorvastatin (LIPITOR) 20 MG TabletIndicatio ns:Hyperlipidem ia, unspecified TAKE 1 TABLET BY MOUTH EVERY DAY 90 Tablet 3 3 Active Glucose Blood (Ludeiuch Verio) Strip USE TO TEST BLOOD SUGAR 4 TIMES DAILY 400 Strip 3 3 Active Xarelto 20 MG Tablet Take 20 mg by mouth every evening. 3 Active Active Problems Problem Noted Date Diagnosed Date Hypoglycemia 06/15/2019 Dyslipidemia 03/10/2019 Thrombocytopenia 02/07/2019 Hypomagnesemia 02/07/2019 Onychomycosis of left great toe 02/06/2019 Cellulitis of left lower extremity 02/06/2019 Chronic deep vein thrombosis (DVT) of femoral vein of left lower extremity 05/26/2017 Chronic deep vein thrombosis (DVT) of popliteal vein of left lower extremity 05/26/2017 Supratherapeutic INR 05/26/2017 Type 2 diabetes mellitus wit h diabetic polyneuropathy, with long-term current use of insulin 05/26/2017 Class 1 obesity due to exces s calories with serious comorbidity and body mass index (BMI) of 33.0 to 33.9 in adult 05/26/2017 Immunizations Immunization Administration Dates Next Due Covid-19, Mrna, Lnp-s, Pf, 1 00 Mcg Or 50 Mcg Dose (MODERNA) 12/19/2020,11/21/2020 Influenza Vaccine, Quadrivalent, PF 05/27/2017 Pneumococcal Vaccine Adult - 23 Valent 7 TB Skin Test 01/14/2021 Family History Medical History Relation Name Comments Hypertension Father Diabetes Mother Heart Attack Mother Hypertension Mother Relation Name Status Comments Father Mother Social History Tobacco Use Types Packs/Day Years Used Date Smoking Tobacco: Never Smokeless Tobacco: Never Tobacco Cessation:Counseling Given: Not Answered Alcohol Use Standard Drinks/Week Comments No 0 (1 standard drink = 0.6 oz pur e alcohol) Sexually Active Control Partners Comments Not Currently Sex and Gender Information Value Date Recorded Sex Assigned at Not on file Legal Sex Male 7:12 PM CDT Gender Identity Not on file Sexual Orientation Not on file Last Filed Vital Signs Vital Sign Reading Time Taken Comments Blood Pressure 132/84 07/25/2022 2:06 PM COKE LOADER Pulse 66 07/25/2022 2:06 PM COKE LOADER Temperature 36.6 C (97.8 F) 07/25/2022 2:06 PM COKE LOADER Respiratory Rate 18 07/25/2022 2:06 PM COKE LOADER Oxygen Saturation 98% 07/25/2022 2:06 PM COKE LOADER Inhaled Oxygen Concentration - - Weight 136.5 kg (301 lb) 07/25/2022 2:06 PM COKE LOADER Height 198.1 cm (6' 6) 07/25/2022 2:06 PM COKE LOADER Body Mass Index 34.78 07/25/2022 2:06 PM COKE LOADER Plan of Treatment Health Maintenance Due Date Last Done Comments Diabetes: Foot Exam 1970 Hepatitis C Virus (HCV) Screening 1970 TdaP Immunization 1970 Hepatitis B Immunization (1 of 3 - 19+ 3-dose series) 1990 Cologuard 2016 Immunochemical Fecal Occult Blood 2016 Pneumococcal Immunization (50+ years) (2 of 2 - PCV) 05/27/2018 05/27/2017, 05/27/2017 Diabetes: Eye Exam 08/09/2018 08/09/2017 Zoster Immunization (1 of 2) 2021 Diabetes: Nephropathy Screening 01/10/2022 01/10/2021, 02/08/2019, 02/07/2019, Additional history exists Influenza Immunization (#1) 2025 05/27/2017 SARS-COV-2 Immunization ( season) 2025 01/18/2022, 08/01/2021, 12/19/2020, Additional history exists Diabetes: Hemoglobin A1c 10/09/2025 025, 07/25/2022, 03/28/2022, Additional history exists Colonoscopy 10/10/2031 10/10/2021, 10/09/2021 Colorectal Cancer Screening 10/10/2031 Respiratory Syncytial Virus (RSV) Immunization (Adult) (1 - 1-dose 75+ series) 2046 Pneumococcal Immunization Combined Discontinued 05/27/2017, 05/27/2017 Human Papillomavirus (HPV) Immunization Aged Out No longer eligible based on patient's age to complete this topic Meningococcal Immunization (ACWY) Aged Out No longer eligible based on patient's age to complete this topic Rotavirus Immunization Aged Out No lo nger eligible based on patient's age to complete this topic Procedures Procedure Name Priority Date/Time Associated Diagnosis Comments POCT GLYCOSYLATED HEMOGLOBIN Routine 07/25/2022 2:14 PM COKE LOADER Type 2 diabetes mellitus with diabetic polyneuropathy, with long-term current use of insulin (HCC) CMP (COMPREHENSIVE METABOLIC PANEL) STAT 01/10/2021 3:53 AM CDT from Last 3 Months or Most Recently Relevant to Health Maintenance Results * (ABNORMAL) POCT GLYCOSYLATED HEMOGLOBIN (07/25/2022 2:14 PM COKE LOADER) HGB-A1C 6.4(A) 4 - 6 Blood 07/25/2022 2:14 PM COKE LOADER us Lazaro Pagan MD POINT OF CARE TESTING (MANUAL) F inal Result * (ABNORMAL) CMP (Comprehensive Metabolic Panel) (01/10/2021 3:53 AM CDT) SODIUM 131(L) 136 - 144 mmol/L 01/10/2021 4:18 AM CDT [facility] POTASSIUM 3.6 3.5 - 5.1 mmol/L 01/10/2021 4:18 AM CDT [facility] CHLORIDE 98(L) 100 - 110 mmol/L 01/10/2021 4:18 AM CDT [facility] CO2, VENOUS 23 22 - 32 mmol/L 01/10/2021 4:18 AM CDT [facility] ANION GAP 13.6 8.0 - 20.0 mmol/L 01/10/2021 4:18 AM T [facility] GLUCOSE 223(H) 70 - 99 mg/dL 01/10/2021 4:18 AM CDT [facility] BUN 18 6 - 20 mg/dL 01/10/2021 4:18 AM T [facility] CREATININE, BLOOD 0.73(L) 0.80 - 1.30 mg/dL 01/10/2021 4:18 AM [facility] BUN/CREATININE RATIO 25(H) 12 - 20 ratio 01/10/2021 4:18 AM [facility] TOTAL PROTEIN 7.2 6.0 - 8.3 g/dL 01/10/2021 4:18 AM [facility] ALBUMIN 4.1 3.5 - 5.2 g/dL 01/10/2021 4:18 AM [facility] Comment: The colormetric methods used for the determination of Albumin may lead to falsely elevated test results in patients suffering from renal failure or insufficiency due to interference with other proteins. A/G RATIO 1.3 1.0 - 2.0 01/10/2021 4:18 AM [facility] CALCIUM 9.3 8.9 - 10.3 mg/dL 01/10/2021 4:18 AM T [facility] T BILI 0.9 <=1.2 mg/dL 01/10/2021 4:18 AM T [facility] SGOT (AST) 12 <=40 U/L 01/10/2021 4:18 AM T [facility] SGPT (ALT) 20 <=41 U/L 01/10/2021 4:18 AM CDT [facility] ALKALINE PHOSPHATASE 100 40 - 130 U/L 01/10/2021 4:18 AM CDT [facility] GFR, EST. NONAFRICAN >60 >=60 01/10/2021 4:18 AM CDT [facility] GFR, EST. >60 >=60 021 4:18 AM CDT [facility] Comment: Creatinine Clearance is the preferred criteria for selecting drug dose adjustments in renally impaired patients. The GFR is provided as additional pertinent clinical information. GFR is reported in mL/min/1.73 sq m. Blood Venipuncture / Unknown 01/10/2021 3:53 AM CDT 01/10/2021 4:05 AM CDT us Dylon Seymour MD CHEMISTRY ORDERABLES Laura l Result [facility] [address] [place] [address] from Last 3 Months or Most Recently Relevant to Health Maintenance Insurance MEDICAID [employer] Advance Directives * Full Code (Latest Code Status on File) Date Activated Date Inactivated Comments 02/06/2019 4:36 AM 02/08/2019 8:03 PM CPR-Full Stephen atment: FULL ARREST: Attempt Resuscitation/CPR wit intubation and mechanical ventilation. PRE-ARREST: Use entire range of life support measures to stabilize the patient. * Full Code Date Activated Date Inactivated Comments 05/26/2017 3:01 PM 05/27/2017 4:46 PM CPR-Full Stephen atment: FULL ARREST: Attempt Resuscitation/CPR wit intubation and mechanical ventilation. PRE-ARREST: Use entire range of life support measures to stabilize the patient. Care Teams Stocking And Box Shop Supervisor Relationship Specialty Start Date End Date Diaz Khoury APRN, DANETTE [address] [place] [address] PCP - General Internal Medicine 02/21/16
--- OUTSIDE RECORDS SUMMARY | 2025-06-21 16:38 | XMS_ITS | Encounter Summary ---
Author Organization [facility] Address [address] [facility] [address] Phone Care Team Providers Care Information Director Name Role Phone Diaz Khoury APRN, SYSTEMS SUPPORT OFFICER Primary Care Provider + Lazaro Pagan MD Unavailable Reason for Visit * Reason Comments Medication Refill Encounter Details Date Type Department Care Team (Late st Contact Info) Description 04/23/2023 Refill [facility] - Endocrinology [facility] [address] [place] [address] Lazaro Pagan MD [address] [address] Medication Refill Social History Tobacco [...] Telephone Encounter - Josselyn Finley RN - 04/23/2023 8:53 AM CDT Requested Prescriptions Pending Prescriptions Disp Refills ??? atorvastatin (LIPITOR) 20 MG Tablet [Pharmacy Med Name: ATORVASTATIN 20 MG TABLET] 90 Tablet 3 Sig: TAKE 1 TABLET BY MOUTH EVERY DAY Next appt: Message sent to schedule follow up. documented in this encounter Plan of Treatment Not on file documented as of this encounter Visit Diagnoses Diagnosis Hyperlipidemia, unspecified documented in this encounter Care Teams Information Director Relationship Specialty Start Date End Date Diaz Khoury APRN, CNP [address] [place] [address] PCP - General Internal Medicine 02/21/16 Lazaro Pagan MD [address] [facility] [address] [place] [address] Consulting Physician Endocrinology 03/20/22 10/12/24 documented as of this encounter
--- OUTSIDE RECORDS SUMMARY | 2025-06-21 16:38 | XMS_ITS | Encounter Summary ---
Author Organization [facility] Address [address] [place] [address] Phone Care Team Providers Care Team Manager Name Role Phone Diaz Barnard APRN, CNP Primary Care Provider + Lazaro Pagan MD Unavailable Encounter Details Date Type Department Care Team (Late st Contact Info) Description 01/30/2021 Nursing Facility [facility] [address] [place] [phone] Meg Chance APRN, CNP Social History Tobacco Use Types Packs/Day Years [...] on file Sexual Orientation Not on file COVID-19 Exposure Response Date Recorded In the last month, have you been in contact with someone who was confirmed or suspected to have Coronavirus / COVID-19? Yes 01/10/2021 3:23 AM CDT documented as of this encounter Progress Notes * Meg Chance APN, CNP - 01/30/2021 12:19 PM CDT [facility] DISCHARGE SUMMARY Name: Karen Prieto Age: 50 y.o. : 1970 Attending Physician: No att. providers found Admission Date/Time: 01/10/2021 Expected Discharge Date: 01/30/2021 Primary Care Physician: DIAZ BARNARD APN, CNP Discharging Provider: Meg Chance APN, DANETTE INSTRUCTIONS FOR PHYSICIANS ON FOLLOW UP AFTER DISCHARGE: Follow-up with PCP: DIAZ BARNARD APN, CNP in 1-2 weeks Discharge Instructions: Discharge Condition: improved Disposition: Home Diet: Regular Diet Activity: activity as tolerated Discharge Diagnoses: Acute left DVT, Diabetes type 2, hyperlipidemia Admitting Diagnoses: Acute left DVT, Diabetes type 2, hyperlipidemia SKILLED CARE COURSE: Karen Prieto was admitted to [place] [facility] for acute care rehabilitation. Patient with a history DVT and was on Xarelto. He stopped taking his Xarelto a few weeks ago secondary to not knowing where his pharmacy that changed was. He presented to the ED on 01/10/2021 with leftleg swelling and pain. ??He had an elevated D-dimer and a positive duplex. The Xarelto was since restarted. . ?? Due to the patient being unable to walk secondary to pain he came to [place] on 01/10/2021 for short-term extended care facility for PT and treatment. The patient has improved and is ready to go home. reiterated to him the important of taking his medications, especially the Xarelto as it will helpto prevent further blood clots. He verbalized understanding. Exam Day of Discharge: Exam: Vital Signs: B/P: 130/72 Pulse: 84 Respirations: 18 Temperature: 98.4 Oxygen Saturation: 98% Oxygen Delivery: Room air ?? Weight: 01/10/2021 - 280 lbs ?? PHYSICAL EXAM: Vitals??and nursing note??reviewed. Constitutional: ?General: He is not in acute distress. ?Appearance: He is well-developed. He is not??diaphoretic. HENT: ?Head: Normocephalic??and atraumatic. ?Right Ear: External ear??normal. ?Left Ear: External ear??normal. Eyes: ?General: No scleral icterus. ?Conjunctiva/sclera: Conjunctivae normal. ?Pupils: Pupils are equal, round, and reactive to light. Neck: ?Trachea: No tracheal deviation. Cardiovascular: ?Rate and Rhythm: Normal rate??and regular rhythm. ?Heart sounds: Normal heart sounds.??No murmur??heard. Pulmonary: ?Effort: Pulmonary effort is normal. No??respiratory distress. ?Breath sounds: Normal breath sounds. No??wheezing??or rales. Abdominal: ?General: Bowel sounds are normal. There is no??distension. ?Palpations: Abdomen is soft. ?Tenderness: There is no abdominal tenderness. There is no??guarding??or rebound. Musculoskeletal: ?General: Normal range of motion. ?Cervical back: Normal range of motion. ?Right upper leg: Normal. ?Left upper leg: Swelling??present. No tenderness. ?Right lower leg: Normal. ?Left lower leg: Swelling??present. No tenderness.??1+??Pitting??Edema??present. Skin: ?General: Skin is warm??and dry. Neurological: ?Mental Status: He is alert??and oriented to person, place, and time. ?Cranial Nerves: No cranial nerve deficit. ?Coordination: Coordination normal.? Lab / Imaging Review: Labs reviewed, no acute findings DISCHARGE PLAN: Acute left DVT with pain to left leg - Xarelto 20 mg PO daily Diabetes, type 2 - Metformin 1000 mg PO BID - Lispro 18 units with meals TID ?? Hyperlipidemia - Atorvastain 20 mg PO Daily ? I have spent time coordinating care for this skilled facility discharge: Greater than 30 minutes spent in coordinating care Signed: Meg Chance APN, CNP, 01/30/2021, 12:20 PM CDT Cosigned by Sissy Merrill MD at 01/30/2021 4:20 PM CDT documented in this encounter Plan of Treatment Not on file documented as of this encounter Visit Diagnoses Not on filedocumented in this encounter Care Teams Team Manager Relationship Specialty Start Date End Date Diaz Barnard APRN, CNP [address] [place] [address] PCP - General Internal Medicine 02/21/16 Lazaro Pagan MD [address] [address] Consulting Physician Endocrinology 03/20/22 10/12/24 documented as of this encounter
--- OUTSIDE RECORDS SUMMARY | 2025-06-21 16:38 | XMS_ITS | Encounter Summary ---
Author Organization [facility] Address [address] [place] [address] Phone Care Team Providers Care Interventional Radiology Technologist Name Role Phone Diaz Khoury APRN, CNP Primary Care Provider + Lazaro Pagan MD Unavailable Encounter Details Date Type Department Care Team (Late st Contact Info) Description 01/16/2021 Nursing Facility [facility] [address] [place], [place] [address] [place] [address] Meg Chance APRN, CNP Social History [...] Notes * Meg Chance APN, CNP - 01/16/2021 11:59 PM CDT [facility] DAILY PROGRESS NOTE Karen Prieto is a 50 y.o. male at [facility] for acute rehabilitation Subjective: Interval History: Patient seen today for routine skilled visit Patient with a history DVT and was on Xarelto. He stopped taking his Xarelto a few weeks ago secondary to not knowing where his pharmacy that changed was. He presented to the ED on 01/10/2021 with left leg swelling and pain. He had an elevated D-dimer and a positive duplex. The Xarelto was since restarted. . ?? Due to the patient being unable to walk secondary to pain he came to [place] on 01/10/2021 for short-term extended care facility for PT and treatment. Patient today reports pain is improved and the leg swelling has gone down. Denies SOB, denies chestpain. Review of Systems: A 14 point comprehensive review of systems was negative except what is documented in interval history above. Objective: Vital Signs: B/P: 134/74 Pulse: 88 Respirations: 18 Temperature: 98.2 Oxygen Saturation: 98% Oxygen Delivery: Room air Weight: 01/10/2021 - 280 lbs PHYSICAL EXAM: Vitals and nursing note reviewed. Constitutional: General: He is not in acute distress. Appearance: He is well-developed. He is not diaphoretic. HENT: Head: Normocephalic and atraumatic. Right Ear: External ear normal. Left Ear: External ear normal. Eyes: General: No scleral icterus. Conjunctiva/sclera: Conjunctivae normal. Pupils: Pupils are equal, round, and reactive to light. Neck: Trachea: No tracheal deviation. Cardiovascular: Rate and Rhythm: Normal rate and regular rhythm. Heart sounds: Normal heart sounds. No murmur heard. Pulmonary: Effort: Pulmonary effort is normal. No respiratory distress. Breath sounds: Normal breath sounds. No wheezing or rales. Abdominal: General: Bowel sounds are normal. There is no distension. Palpations: Abdomen is soft. Tenderness: There is no abdominal tenderness. There is no guarding or rebound. Musculoskeletal: General: Normal range of motion. Cervical back: Normal range of motion. Right upper leg: Normal. Left upper leg: Swelling present. No tenderness. Right lower leg: Normal. Left lower leg: Swelling present. No tenderness. 3+ Pitting Edema present. Skin: General: Skin is warm and dry. Neurological: Mental Status: He is alert and oriented to person, place, and time. Cranial Nerves: No cranial nerve deficit. Coordination: Coordination normal. Labs reviewed: None to review today. Ordered weekly CBC x4 and then monthly thereafter Assessment/Plan: Plan: Acute left DVT with pain to left leg - Xarelto 20 mg PO daily - Skilled therapy services Diabetes, type 2 - Metformin 1000 mg PO BID - Lispro 18 units with meals TID Hyperlipidemia - Atorvastain 20 mg PO Daily Fall Risk/Care Plan Reviewed VTE Prophylaxis: Patient Already on Oral Anticoagulation Disposition/Discharge Planning: Advance Care Planning: Aggregate [id number] time of 20 minutes was spent discussing end-of-life care planning with patient/family and/or Power of Solar Photovoltaic Installer. Discussed CPR, Intubation, treatment goals, and Quality of life/Intensity of care. CODE STATUS: Patient desires CPR-Full Treatment. HEALTHCARE POA: Does not have a HCPOA Total Time Spent (including the advance care planning time above) performing medication reconciliation, examination of the patient, review of medical records and documentation: 55 minutes. By: Meg Chance APN, CNP, 01/16/2021 11:35 PM CDT Cosigned by Sissy Merrill MD at 01/25/2021 10:34 AM CDT documented in this encounter Plan of Treatment Not on file documented as of this encounter Visit Diagnoses Not on filedocumented in this encounter Care Teams Interventional Radiology Technologist Relationship Specialty Start Date End Date Diaz Khoury APRN, CNP [address] [place] [address] PCP - General Internal Medicine 02/21/16 Lazaro Pagan MD [address] [facility] [address] [place] [address] Consulting Physician Endocrinology 03/20/22 10/12/24 documented as of this encounter
--- OUTSIDE RECORDS SUMMARY | 2025-06-21 16:38 | XMS_ITS | Encounter Summary ---
Author Organization [facility] Address [address] [facility] [place] [address] Phone Care Team Providers Care Agent Producer Name Role Phone Diaz Khoury APRN, INFORMATICA DEVELOPER Primary Care Provider + Lazaro Pagan MD Unavailable Reason for Visit * Reason Comments Medication Refill Encounter Details Date Type Department Care Team (Late st Contact Info) Description 05/03/2023 Refill [facility] - Endocrinology [facility] [address] [place] [address] Lazaro Pagan MD #[address] [phone] Medication Refill Social History Tobacco [...] Telephone Encounter - Josselyn Finley RN - 05/03/2023 8:56 AM CDT Requested Prescriptions Pending Prescriptions Disp Refills ??? Glucose Blood (OneTouch Verio) Strip [Pharmacy Med Name: ONE TOUCH VERIO TEST STRIP] 400 Strip 3 Sig: USE TO TEST BLOOD SUGAR 4 TIMES DAILY Next appt: Message sent to schedule follow up. documented in this encounter Plan of Treatment Not on file documented as of this encounter Visit Diagnoses Not on filedocumented in this encounter Care Teams Agent Producer Relationship Specialty Start Date End Date Diaz Khoury APRN, CNP [address] [place] [address] PCP - General Internal Medicine 02/21/16 Lazaro Pagan MD #[address] [phone] Consulting Physician Endocrinology 03/20/22 10/12/24 documented as of this encounter
--- NOTE | 2025-06-21 17:09 | PC.NURSE ---
patient stated that he has been staying at [facility]; he stated that he has been there for a diabetic foot ulcer that was not healing but he has been discharged. patient stated that he is not ready to go home as he feels that his foot is not well enough to and today wants to be seen in the ED for back pain that he has had since last . patient stated that he has had no trauma, no falls. reports that he rarely gets up from his WC but does use a walker when he does and thinks that as he puts on his post op shoes he may have strained his back bending over. this RN encouraged patient to provide a urine specimen, patient verbalized understanding.
--- OUTSIDE RECORDS SUMMARY | 2025-06-21 17:18 | XMS_ITS ---
Author Organization [facility] Address [address] [place] [address] Phone Care Team Providers Care Facility Mechanic Name Role Phone Diaz Khoury APRN, DANETTE [...]
--- OUTSIDE RECORDS SUMMARY | 2025-06-21 17:18 | XMS_ITS | Encounter Summary ---
Author Organization [facility] Address [address] [place] [address] Phone Care Team Providers Care Interviewing Clerk Name Role Phone Diaz Khoury APRN, CNP Primary Care Provider + Lazaro Pagan MD Unavailable Encounter Details Date Type Department Care Team (Late st Contact Info) Description 01/16/2021 Nursing Facility [facility] [address] [place], [place] [address] [place] [address] eMg Chance APRN, CNP Social History Tobacco Use [...] APN, CNP - 01/16/2021 11:59 PM CDT [facility] DAILY PROGRESS NOTE Karen Prieto is a 50 y.o. male at [facility] for acute rehabilitation Subjective: Interval History: Patient [...] walk secondary to pain he came to [place] on 01/10/2021 for short-term extended care facility [...] Anticoagulation Disposition/Discharge Planning: Advance Care Planning: Aggregate [id number] time of 20 minutes was spent discussing end-of-life care planning with patient/family and/or Power of Manufacturing Systems Engineer. Discussed CPR, Intubation, treatment goals, and Quality of life/Intensity of care. CODE STATUS: Patient desires CPR-Full Treatment. HEALTHCARE POA: Does not have a HCPOA Total Time Spent (including the advance care planning time above) performing medication reconciliation, examination of the patient, review of medical records and documentation: 55 minutes. By: Mge Chance APN, CNP, 01/16/2021 11:35 PM CDT Cosigned by Sissy Merrill MD at 01/25/2021 10:34 AM CDT documented in this encounter Plan of Treatment Not on file documented as of this encounter Visit Diagnoses Not on filedocumented in this encounter Care Teams Interviewing Clerk Relationship Specialty Start Date End Date Diaz Khoury APRN, CNP [address] [place] [address] PCP - General Internal Medicine 02/21/16 Lazaro Pagan MD #[address] [facility] [address] [place] [address] Consulting Physician Endocrinology 03/20/22 10/12/24 documented as of this encounter
--- OUTSIDE RECORDS SUMMARY | 2025-06-21 17:18 | XMS_ITS | Encounter Summary ---
Author Organization [facility] Address [address] [place] [address] Phone Care Team Providers Care Insight Leader Name Role Phone Diaz Barnard APRN, CNP Primary Care Provider + Lazaro Pagan MD Unavailable Encounter Details Date Type Department Care Team (Late st Contact Info) Description 01/30/2021 Nursing Facility [facility] [address] [place] [phone] Meg Chance APRN, CNP Social History [...] APN, CNP - 01/30/2021 12:19 PM CDT [facility] DISCHARGE SUMMARY Name: Karen Prieto Age: 50 [...] CARE COURSE: Karen Prieto was admitted to [facility] for acute care rehabilitation. Patient with a [...] walk secondary to pain he came to [place] on 01/10/2021 for short-term extended care facility [...] on filedocumented in this encounter Care Teams Insight Leader Relationship Specialty Start Date End Date Diaz Barnard APRN, CNP [address] [place] [address] PCP - General Internal Medicine 02/21/16 Lazaro Pagan MD #[address] [phone] Consulting Physician Endocrinology 03/20/22 10/12/24 documented as of this encounter
--- OUTSIDE RECORDS SUMMARY | 2025-06-21 17:18 | XMS_ITS | Encounter Summary ---
Author Organization [facility] Address [address] [facility] [place] [address] Phone Care Team Providers Care Deckhand Maintenance Name Role Phone Diaz Khoury APRN, MEETING COORDINATOR Primary Care Provider + Lazaro Pagan MD Unavailable Reason for Visit * Reason Comments Medication Refill Encounter Details Date Type Department Care Team (Late st Contact Info) Description 01/26/2022 Refill [facility] - Endocrinology [facility] [address] [place] [address] Lazaro Pagan MD [address] [phone] Medication Refill Social History Tobacco [...] on filedocumented in this encounter Care Teams Deckhand Maintenance Relationship Specialty Start Date End Date Diaz Khoury APRN, DANETTE [address] [place] [address] PCP - General Internal Medicine 02/21/16 Lazaro Pagan MD #[address] [phone] Consulting Physician Endocrinology 03/20/22 10/12/24 documented as of this encounter
--- OUTSIDE RECORDS SUMMARY | 2025-06-21 17:19 | XMS_ITS | Encounter Summary ---
Author Organization [facility] Address [address] [facility] [place] [address] Phone Care Team Providers Care Deputy Chief Sheriff Name Role Phone Diaz Khoury APRN, SCOUT LEASER Primary Care Provider + Lazaro Pagan MD Unavailable Reason for Visit * Reason Comments Medication Refill Encounter Details Date Type Department Care Team (Late st Contact Info) Description 04/23/2023 Refill [facility] - Endocrinology [facility] [address] [place] [address] Lazaro Pagan MD [address] [address] Medication Refill Social History Tobacco [...] unspecified documented in this encounter Care Teams Deputy Chief Sheriff Relationship Specialty Start Date End Date Diaz Khoury APRN, CNP [address] [place] [address] PCP - General Internal Medicine 02/21/16 Lazaro Pagan MD #2 [facility] [address] [place] [address] Consulting Physician Endocrinology 03/20/22 10/12/24 documented as of this encounter
--- OUTSIDE RECORDS SUMMARY | 2025-06-21 17:19 | XMS_ITS | Clinical Summary ---
Author Organization [facility] Address [address] [place] [address] Care Team Providers Care Machine Zipper Trimmer Name Role Phone Diaz Khoury FIBERGLASS PIPE COVERING SUPERVISOR Unavailable [phone] Diaz Khoury FIBERGLASS PIPE COVERING SUPERVISOR Unavailable [phone] Dalton Mahoney MD Primary Care Provi jaden [...] (07/03/2021): Added automatically from request for surgery [id number] Positive colorectal cancer screening using Colog uard test 07/03/2021 Overview (07/03/2021): Added automatically from request for surgery [id number] Encounter for screening colonoscopy 07/03/2021 Overview (07/03/2021): Added automatically from request for surgery [id number] Hypoglycemia 06/15/2019 Dyslipidemia 03/10/2019 Hypomagnesemia 02/07/2019 Thrombocytopenia [...] CDT Office Visit [facility] [address] [place] [address] [address] [place] [address] Richard Hewitt MD Other acute osteomyelitis of right foot (Primary Dx); GBS (group B streptococcus) infection 06/02/2025 Orders Only [facility] [address] [place] [address] ProviderMagalys MD 05/17/2025 Orders Only [facility] [address] [place] [address] Magalys Valenzuela MD 05/13/2025 Orders Only [facility] [address] [place] [address] ProviderMagalys MD 04/20/2025 Documentation [facility] [address] [place] [address] [address] [place] [address] Lorna Vásquez LPN IV Antibx ([place]) 04/12/2025 1:00 PM CDT - 04/12/2025 2:00 PM CDT Surgery [facility] Operating Room [address] [place] [address] Oliver Espinosa, DPSusan DEBRIDEMENT OF INFECTED TISSUE AND BONE RIGHT FOOT 04/12/2025 12:56 PM CDT Anesthesia Event [facility] Operating Room [address] [place] [address] Roman Ling MD 04/07/2025 3:05 PM CDT - 04/19/2025 3:38 PM CDT Hospital Encounter [facility] IMU [address] [place] [address] Robert Arreola MD Richards, MD Emiliano Jimenez [...] week 04/08/2025 How often do you attend religion or jainism serv ices? Never 04/08/2025 Do you belong to any clubs o r organizations such as religion groups, unions, fraternal or athletic groups, or [...] were you homeless or living in a snf (including now)? No 04/08/2025 [facility] Utilities Answer Date Recorded In the past 12 months has e [employer], gas, oil, or water [employer] threatened to shut off services in your home? No 04/08/2025 Personal Safety Answer Date Recorded Have you ever been in or are you currently in a harmful physical or emotional relationship or is someone making you feel afraid or unsafe? Denies 04/12/2025 Sex and Gender Information Value Date Recorded Sex Assigned at Not on file Legal Sex Male 12:38 PM [employer] Gender Identity Not on file Sexual Orientation [...] 3 PM CDT COLONOSCOPY 10/10/2021 9:12 AM [employer] DIABETIC EYE EXAM Routine 06/07/2021 from Last 3 Months or Most Recently Relevant to Health Maintenance Results * CBC with auto differential (05/31/2025 8:51 AM CDT) Blood Historical Provider LAB BLOOD ORDERABLES Laura conte Result EXTERNAL LAB * Basic metabolic panel (05/31/2025 8:51 AM CDT) Blood Historical Provider MD LAB BLOOD ORDERABLES Laura l Result Performing Organization Address City/[facility] Co de Phone Number EXTERNAL LAB * CBC with auto differential (05/12/2025 11:48 AM CDT) Blood Result [facility] Provider MD LAB BLOOD ORDERABLES Laura l Result Performing Organization Address City/[facility] Co de Phone Number EXTERNAL LAB * Basic metabolic panel (05/12/2025 11:48 AM CDT) Blood Result [facility] Provider MD LAB BLOOD ORDERABLES Laura l Result Performing Organization Address [facility] de Phone Number EXTERNAL LAB * CBC with auto differential (05/12/2025 10:00 AM CDT) Blood Result [facility] Provider MD LAB BLOOD ORDERABLES Laura l Result Performing Organization Address [facility] de Phone Number EXTERNAL LAB * CBC with auto differential (05/12/2025 9:59 AM CDT) Blood Result [facility] Provider MD LAB BLOOD ORDERABLES Laura l Result * POCT glucose (04/19/2025 11:06 AM CDT) Glucose, POC 93 70 - 199 mg/dL Blood 04/19/2025 11:0 6 AM CDT 04/19/2025 11:06 AM CDT Result [facility] Viviana Barber MD LAB POCT ORDERABLES - DEVICE Fin al Result Performing Organization Address City/[facility] Co de Phone Number ANAND [facility] ([place]) 1 [facility] [place] [address] * POCT glucose (04/19/2025 7:51 AM CDT) Glucose, POC 140 70 - 199 mg/dL Blood 04/19/2025 7:51 AM CDT 04/19/2025 7:51 AM CDT us Viviana Barber MD LAB POCT ORDERABLES - DEVICE Fin al Result Performing Organization Address City/[facility]/ZIP Co de Phone Number ANAND [facility] ([place]) 1 [facility] [place] [address] * eGFR (04/19/2025 5:38 AM CDT) [facility] eGFR >90 >=60 mL/min/1. 73 m2 Comment: [...] BLOOD ORDERABLES Final Result Performing Organization Address City/[facility]/ZIP Co de Phone Number ANAND [facility] ([place]) 1 [facility] [place] [address] * Differential, auto (04/19/2025 5:38 AM CDT) Pathologist [facility] Neutrophil abs 2.02 1.50 - 6.50 K/cumm [...] 2017. Monocyte pct 9.4 % [facility] ([place]) Comment: Interpretive Data Percent cell count reference [...] ORDERABLES Final Result [facility] ([place]) 1 [facility] [place] [address] * (ABNORMAL) CBC with auto differential (04/19/2025 [...] ORDERABLES Final Result [facility] ([place]) 1 [facility] [employer] [place] [address] * Basic metabolic panel (04/19/2025 5:38 AM CDT) Sodium 139 135 - 145 mmol/L [facility] ([place]) Potassium, pl 4.2 3.3 - 4.9 mmol/L [facility] ([place]) Chloride 103 97 - 110 mmol/L [facility] ([place]) CO2 25 22 - 32 mmol/L [facility] ([place]) Anion gap 11 2 - 15 mmol/L [facility] ([place]) BUN 24 6 - 25 mg/dL [facility] ([place]) Creatinine 0.82 0.80 - 1.30 mg/dL [facility] ([place]) Glucose 121 70 - 199 mg/dL [facility] ([place]) Comment: Interpretive Data Fasting glucose >/= [...] 2022. Calcium 9.2 8.5 - 10.3 mg/dL [facility] ([place]) Blood 04/19/2025 5:38 AM CDT 04/19/2025 5:46 AM CDT us Oliver Espinosa DPM LAB BLOOD ORDERABLES Final Result Performing Organization Address City/[facility]/ZIP Co de Phone Number [facility] ([place]) 1 [facility] [employer] [place] [address] * POCT glucose (04/19/2025 3:20 AM CDT) Glucose, POC 134 70 - 199 mg/dL Blood 04/19/2025 3:20 AM CDT 04/19/2025 3:20 AM CDT us Viviana Barber MD LAB POCT ORDERABLES - DEVICE Fin al Result [facility] ([place]) 1 [facility] [employer] [place] [address] * POCT glucose (04/18/2025 8:43 PM CDT) Glucose, POC 107 70 - 199 mg/dL Blood 04/18/2025 8:43 PM CDT 04/18/2025 8:43 PM CDT Viviana Barber MD LAB POCT ORDERABLES - DEVICE Fin al Result Performing Organization Address City/[facility]/ZIP Co de Phone Number [facility]ND [facility] ([place]) 1 [facility] [place] [address] * POCT glucose (04/18/2025 4:48 PM CDT) Glucose, POC 166 70 - 199 mg/dL Blood 04/18/2025 4:48 PM CDT 04/18/2025 4:48 PM CDT Viviana Barber MD LAB POCT ORDERABLES - DEVICE Fin al Result Performing Organization Address [facility] Co de Phone Number [facility] ([place]) 1 [facility] [place] [address] * POCT glucose (04/18/2025 11:55 AM CDT) Glucose, POC 110 70 - 199 mg/dL Blood 04/18/2025 11:5 5 AM CDT 04/18/2025 11:55 AM CDT Viviana Barber MD LAB POCT ORDERABLES - DEVICE Fin al Result Performing Organization Address City/[facility] Co de Phone Number [facility] ([place]) 1 [facility] [place] [address] * POCT glucose (04/18/2025 7:45 AM CDT) Glucose, POC 153 70 - 199 mg/dL Blood 04/18/2025 7:45 AM CDT 04/18/2025 7:45 AM CDT us Viviana Barber MD LAB POCT ORDERABLES - DEVICE Fin al Result [facility]ND [facility] ([place]) 1 [facility] Department [place] [address] * eGFR (04/18/2025 5:31 AM CDT) eGFR [...] LAB BLOOD ORDERABLES Final Result [facility]ND [facility] ([place]) 1 [facility] [place] [address] * Differential, auto (04/18/2025 5:31 AM CDT) Neutrophil abs 1.82 1.50 - 6.50 K/cumm Imm gran abs 0.01 0.00 - 0.10 K/cumm [facility] ([place]) Lymphocyte abs 1.84 0.80 - 3.30 K/cumm [...] ORDERABLES Final Result [facility] ([place]) 1 [facility] [place] [address] * (ABNORMAL) CBC with auto differential (04/18/2025 [...] ORDERABLES Final Result [facility] ([place]) 1 [facility] [place] [address] * (ABNORMAL) Basic metabolic panel (04/18/2025 5:31 AM CDT) Pathologist [facility] Sodium 136 135 - 145 mmol/L [facility] ([place]) Potassium, pl 4.2 3.3 - 4.9 mmol/L [facility] ([place]) Chloride 103 97 - 110 mmol/L [facility] ([place]) CO2 26 22 - 32 mmol/L [facility] ([place]) Anion gap 7 2 - 15 mmol/L [facility] ([place]) BUN 24 6 - 25 mg/dL [facility] ([place]) Creatinine 0.79(L) 0.80 - 1.30 mg/dL [facility] ([place]) Glucose 144 70 - 199 mg/dL [facility] ([place]) Comment: Interpretive Data Fasting glucose >/= [...] 2022. Calcium 9.4 8.5 - 10.3 mg/dL [facility] ([place]) Blood 04/18/2025 5:31 AM CDT 04/18/2025 5:39 AM CDT us Oliver Espinosa DPM LAB BLOOD ORDERABLES Final Result [facility] ([place]) 1 [facility] [place] [address] * POCT glucose (04/18/2025 3:28 AM CDT) Glucose, POC 151 70 - 199 mg/dL Blood 04/18/2025 3:28 AM CDT 04/18/2025 3:28 AM CDT us Viviana Barber MD LAB POCT ORDERABLES - DEVICE Fin al Result [facility] ([place]) 1 [facility] [place] [address] * POCT glucose (04/17/2025 8:35 PM CDT) Glucose, POC 135 70 - 199 mg/dL Blood 04/17/2025 8:35 PM CDT 04/17/2025 8:35 PM CDT us Viviana Barber MD LAB POCT ORDERABLES - DEVICE Fin al Result Performing Organization Address [facility] Co de Phone Number ANAND [facility] ([place]) [address] [place] [address] [place] [address] * POCT glucose (04/17/2025 5:17 PM CDT) Glucose, POC 105 70 - 199 mg/dL Blood 04/17/2025 5:17 PM CDT 04/17/2025 5:17 PM CDT us Viviana Barber MD LAB POCT ORDERABLES - DEVICE Fin al Result Performing Organization Address [facility] Co de Phone Number ANAND [facility] ([place]) 1 [facility] [place] [address] * POCT glucose (04/17/2025 11:58 AM CDT) Glucose, POC 143 70 - 199 mg/dL Blood 04/17/2025 11:5 8 AM CDT 04/17/2025 11:58 AM CDT us Viviana Barber MD LAB POCT ORDERABLES - DEVICE Fin al Result Performing Organization Address [facility] Co de Phone Number ANAND [facility] ([place]) 1 [facility] [place] [address] * POCT glucose (04/17/2025 8:01 AM CDT) Glucose, POC 153 70 - 199 mg/dL Blood 04/17/2025 8:01 AM CDT 04/17/2025 8:01 AM CDT us Viviana Barber MD LAB POCT ORDERABLES - DEVICE Fin al Result Performing Organization Address City/[facility]/ZIP Co de Phone Number A[facility]ND [facility] ([place]) 1 [facility] [place] [address] * eGFR (04/17/2025 5:42 AM CDT) Pathologist [facility] eGFR >90 >=60 mL/min/1. 73 m2 Comment: [...] BLOOD ORDERABLES Final Result Performing Organization Address City/[facility]/ZIP Co de Phone Number [facility]ND [facility] ([place]) 1 [facility] [place] [address] * Differential, auto (04/17/2025 5:42 AM CDT) [...] 2017. Basophil pct 0.8 % [facility] ([place]) Comment: Interpretive Data Percent cell count reference ranges are not reported, since discordance with absolute values may lead to misinterpretation of CBC data. Current Interpretive Data was last revised on 2017. Blood 04/17/2025 5:42 AM CDT 04/17/2025 5:47 AM CDT us Oliver Espinosa DPM LAB BLOOD ORDERABLES Final Result ANAND [facility] ([place]) 1 [facility] [place] [address] * (ABNORMAL) CBC with auto differential (04/17/2025 [...] Espinosa DPSusan LAB BLOOD ORDERABLES Final Result [facility] ([place]) 1 [facility] [place] [address] * (ABNORMAL) Basic metabolic panel (04/17/2025 5:42 [...] ([place]) Glucose 129 70 - 199 mg/dL [facility] ([place]) Comment: Interpretive Data Fasting glucose >/= [...] 2022. Calcium 8.8 8.5 - 10.3 mg/dL [facility] ([place]) Blood 04/17/2025 5:42 AM CDT 04/17/2025 5:47 AM CDT us Oliver Espinosa DPM LAB BLOOD ORDERABLES Final Result ANAND [facility] ([place]) 1 [facility] [employer] [place] [address] * POCT glucose (04/17/2025 3:02 AM CDT) Glucose, POC 135 70 - 199 mg/dL Blood 04/17/2025 3:02 AM CDT 04/17/2025 3:02 AM CDT us Viviana Barber MD LAB POCT ORDERABLES - DEVICE Fin al Result ANAND [facility] ([place]) 1 [facility] [employer] [place] [address] * POCT glucose (04/16/2025 9:15 PM CDT) Glucose, POC 128 70 - 199 mg/dL Blood 04/16/2025 9:15 PM CDT 04/16/2025 9:15 PM CDT us Viviana Barber MD LAB POCT ORDERABLES - DEVICE Fin al Result [facility]ND [facility] ([place]) 1 [facility] [place] [address] * POCT glucose (04/16/2025 4:53 PM CDT) Glucose, POC 129 70 - 199 mg/dL Blood 04/16/2025 4:53 PM CDT 04/16/2025 4:53 PM CDT us Viviana Barber MD LAB POCT ORDERABLES - DEVICE Fin al Result Performing Organization Address [facility] Co de Phone Number [facility]ND [facility] ([place]) 1 [facility] [place] [address] * POCT glucose (04/16/2025 11:55 AM CDT) Glucose, POC 106 70 - 199 mg/dL Blood 04/16/2025 11:5 5 AM CDT 04/16/2025 11:55 AM CDT us Viviana Barber MD LAB POCT ORDERABLES - DEVICE Fin al Result Performing Organization Address City/[facility] Co de Phone Number [facility]ND [facility] ([place]) 1 [facility] [place] [address] * POCT glucose (04/16/2025 8:19 AM CDT) Glucose, POC 134 70 - 199 mg/dL Blood 04/16/2025 8:19 AM CDT 04/16/2025 8:19 AM CDT us Viviana Barber MD LAB POCT ORDERABLES - DEVICE Fin al Result Performing Organization Address City/[facility]/ZIP Co de Phone Number [facility]ND [facility] ([place]) 1 [facility] [place] [address] * eGFR (04/16/2025 6:28 AM CDT) Pathologist [facility] eGFR >90 >=60 mL/min/1. 73 m2 Comment: [...] LAB BLOOD ORDERABLES Final Result [facility]ND [facility] ([place]) 1 [facility] [place] [address] * Differential, auto (04/16/2025 6:28 AM CDT) Pathologist [facility] Neutrophil abs 2.07 1.50 - 6.50 K/cumm [...] 2017. Monocyte pct 11.0 % [facility] ([place]) Comment: Interpretive Data Percent cell count reference [...] ORDERABLES Final Result [facility]ND [facility] ([place]) 1 [facility] [place] [address] * (ABNORMAL) CBC with auto differential (04/16/2025 [...] Espinosa DP LAB BLOOD ORDERABLES Final Result [facility] ([place]) 1 [facility] [place] [address] * (ABNORMAL) Basic metabolic panel (04/16/2025 6:28 AM CDT) Pathologist [facility] Sodium 134(L) 135 - 145 mmol/L [facility] [...] ([place]) Glucose 157 70 - 199 mg/dL [facility] ([place]) Comment: Interpretive Data Fasting glucose >/= [...] 2022. Calcium 8.8 8.5 - 10.3 mg/dL [facility] ([place]) Blood 04/16/2025 6:28 AM CDT 04/16/2025 6:34 AM CDT us Oliver Espinosa DPM LAB BLOOD ORDERABLES Final Result Performing Organization Address City/[facility]/ZIP Co de Phone Number [facility] ([place]) 1 [facility] [place] [address] * POCT glucose (04/16/2025 2:01 AM CDT) Glucose, POC 168 70 - 199 mg/dL Blood 04/16/2025 2:01 AM CDT 04/16/2025 2:01 AM CDT Viviana Barber MD LAB POCT ORDERABLES - DEVICE Fin al Result Performing Organization Address City/[facility]/ZIP Co de Phone Number [facility] 1 [facility] [place] [address] * POCT glucose (04/15/2025 8:29 PM CDT) Glucose, POC 156 70 - 199 mg/dL Blood 04/15/2025 8:29 PM CDT 04/15/2025 8:29 PM CDT Viviana Barber MD LAB POCT ORDERABLES - DEVICE Fin al Result [facility] ([place]) 1 [facility] [place] [address] * POCT glucose (04/15/2025 4:44 PM CDT) Glucose, POC 114 70 - 199 mg/dL Blood 04/15/2025 4:44 PM CDT 04/15/2025 4:44 PM CDT Viviana Barber MD LAB POCT ORDERABLES - DEVICE Fin al Result Performing Organization Address City/[facility]/ZIP Co de Phone Number [facility] ([place]) 1 [facility] [place] [address] * POCT glucose (04/15/2025 11:52 AM CDT) Glucose, POC 167 70 - 199 mg/dL Blood 04/15/2025 11:5 2 AM CDT 04/15/2025 11:52 AM CDT Viviana Barber MD LAB POCT ORDERABLES - DEVICE Fin al Result Performing Organization Address City/[facility]/ZIP Co de Phone Number [facility] ([place]) 1 [facility] [place] [address] * POCT glucose (04/15/2025 7:57 AM CDT) Glucose, POC 157 70 - 199 mg/dL Blood 04/15/2025 7:57 AM CDT 04/15/2025 7:57 AM CDT Viviana Barber MD LAB POCT ORDERABLES - DEVICE Fin al Result [facility] ([place]) 1 [facility] [place] [address] * eGFR (04/15/2025 5:38 AM CDT) eGFR [...] LAB BLOOD ORDERABLES Final Result [facility] ([place]) 1 [facility] [place] [address] * Differential, auto (04/15/2025 5:38 AM CDT) [...] ORDERABLES Final Result [facility] ([place]) 1 [facility] [place] [address] * (ABNORMAL) CBC with auto [...] NRBC abs 0.00 0.00 - 0.01 K/cumm [facility] ([place]) Blood 04/15/2025 5:38 AM CDT 04/15/2025 6:07 AM CDT us Oliver Espinosa DPM LAB BLOOD ORDERABLES Final Result [facility] ([place]) 1 [facility] [place] [address] * (ABNORMAL) Basic metabolic panel (04/15/2025 5:38 AM CDT) Sodium 135 135 - 145 mmol/L [facility] ([place]) Potassium, pl 4.2 3.3 - 4.9 mmol/L [facility] ([place]) Chloride 102 97 - 110 mmol/L [facility] ([place]) CO2 26 22 - 32 mmol/L [facility] ([place]) Anion gap 7 2 - 15 mmol/L [facility] ([place]) BUN 22 6 - 25 mg/dL [facility] ([place]) Creatinine 0.74(L) 0.80 - 1.30 [...] BLOOD ORDERABLES Final Result Performing Organization Address [facility] de Phone Number JANINAALYX [facility] ([place]) 1 [facility] [employer] [place] [address] * POCT glucose (04/15/2025 2:06 AM CDT) Glucose, POC 166 70 - 199 mg/dL Blood 04/15/2025 2:06 AM CDT 04/15/2025 2:06 AM CDT Viviana Barber MD LAB POCT ORDERABLES - DEVICE Fin al Result Performing Organization Address [facility] de Phone Number ANAND [facility] ([place]) 1 [facility] [place] [address] * POCT glucose (04/14/2025 8:46 PM CDT) Glucose, POC 166 70 - 199 mg/dL Blood 04/14/2025 8:46 PM CDT 04/14/2025 8:46 PM CDT Viviana Barber MD LAB POCT ORDERABLES - DEVICE Fin al Result [facility]ND [facility] ([place]) 1 [facility] [place] [address] * POCT glucose (04/14/2025 4:49 PM CDT) Glucose, POC 126 70 - 199 mg/dL Blood 04/14/2025 4:49 PM CDT 04/14/2025 4:49 PM CDT Viviana Barber MD LAB POCT ORDERABLES - DEVICE Fin al Result Performing Organization Address City/[facility]/ZIP Co de Phone Number [facility] ([place]) 1 [facility] [place] [address] * (ABNORMAL) Erythrocyte sedimentation rate (04/14/2025 4:36 PM CDT) Pathologist [facility] Erythrocyte sedimentation rate 50(H) 1 - 20 mm/hr Blood 04/14/2025 4:36 PM CDT 04/14/2025 4:40 PM CDT Richard Hewitt MD LAB BLOOD ORDERABLES Final Result Performing Organization Address City/[facility]/ZIP Co de Phone Number [facility] ([place]) 1 [facility] [place] [address] * POCT glucose (04/14/2025 11:51 AM CDT) Glucose, POC 139 70 - 199 mg/dL Blood 04/14/2025 11:5 1 AM CDT 04/14/2025 11:51 AM CDT Viviana Barber MD LAB POCT ORDERABLES - DEVICE Fin al Result [facility] ([place]) 1 [facility] [place] [address] * POCT glucose (04/14/2025 7:57 AM CDT) Glucose, POC 179 70 - 199 mg/dL Blood 04/14/2025 7:57 AM CDT 04/14/2025 7:57 AM CDT us Viviana Barber MD LAB POCT ORDERABLES - DEVICE Fin al Result Performing Organization Address [facility]/ZIP Co de Phone Number [facility] ([place]) 1 [facility] [place] [address] * eGFR (04/14/2025 2:38 AM CDT) eGFR [...] BLOOD ORDERABLES Final Result Performing Organization Address City/[facility]/ZIP Co de Phone Number [facility] ([place]) 1 [facility] [place] [address] * Differential, auto (04/14/2025 2:38 AM CDT) Neutrophil abs 3.35 1.50 - 6.50 K/cumm Imm gran abs 0.02 0.00 - 0.10 K/cumm [facility] ([place]) Lymphocyte abs 1.90 0.80 - 3.30 K/cumm [facility] ([place]) Monocyte abs 0.72 0.20 - 0.80 K/cumm [facility] ([place]) Eosinophil abs 0.24 0.00 - 0.50 K/cumm [...] ORDERABLES Final Result [facility] ([place]) 1 [facility] [place] [address] * (ABNORMAL) CBC with auto differential (04/14/2025 [...] ORDERABLES Final Result [facility] ([place]) 1 [facility] [place] [address] * (ABNORMAL) Basic metabolic panel (04/14/2025 2:38 AM CDT) Sodium 134(L) 135 - 145 mmol/L [facility] ([place]) Potassium, pl 4.1 3.3 - 4.9 mmol/L [facility] ([place]) Chloride 100 97 - 110 mmol/L [facility] ([place]) CO2 22 22 - 32 mmol/L [facility] ([place]) Anion gap 12 2 - 15 mmol/L [facility] ([place]) BUN 22 6 - 25 mg/dL [facility] ([place]) Creatinine 0.84 0.80 - 1.30 mg/dL [facility] ([place]) Glucose 184 70 - 199 mg/dL [facility] ([place]) Comment: Interpretive Data Fasting [...] 2022. Calcium 8.6 8.5 - 10.3 mg/dL [facility] ([place]) Blood 04/14/2025 2:38 AM CDT 04/14/2025 3:25 AM CDT us Oliver Espinosa DPM LAB BLOOD ORDERABLES Final Result Performing Organization Address City/[facility]/ZIP Co de Phone Number ANAND [facility] ([place]) 1 [facility] [place] [address] * POCT glucose (04/14/2025 2:31 AM CDT) Glucose, POC 171 70 - 199 mg/dL Comment:Glu2: RN/ Notified Blood 04/14/2025 2:31 AM CDT 04/14/2025 2:31 AM CDT Viviana Barber MD LAB POCT ORDERABLES - DEVICE Fin al Result Performing Organization Address City/[facility] Co de Phone Number ANAND [facility] ([place]) 1 [place] [address] * POCT glucose (04/13/2025 8:23 PM CDT) Glucose, POC 176 70 - 199 mg/dL Comment:Glu2: RN/ Notified Blood 04/13/2025 8:23 PM CDT 04/13/2025 8:23 PM CDT Viviana Barber MD LAB POCT ORDERABLES - DEVICE Fin al Result ANAND [facility] ([place]) 1 [place] [address] * POCT glucose (04/13/2025 4:55 PM CDT) Glucose, POC 141 70 - 199 mg/dL Blood 04/13/2025 4:55 PM CDT 04/13/2025 4:55 PM CDT Viviana Barber MD LAB POCT ORDERABLES - DEVICE Fin al Result [facility] ([place]) 1 [facility] [place] [address] * POCT glucose (04/13/2025 11:56 AM CDT) Glucose, POC 121 70 - 199 mg/dL Blood 04/13/2025 11:5 6 AM CDT 04/13/2025 11:56 AM CDT Viviana Barber MD LAB POCT ORDERABLES - DEVICE Fin al Result [facility] ([place]) 1 [facility] [place] [address] * POCT glucose (04/13/2025 8:00 AM CDT) Glucose, POC 135 70 - 199 mg/dL Blood 04/13/2025 8:00 AM CDT 04/13/2025 8:00 AM CDT Viviana Barber MD LAB POCT ORDERABLES - DEVICE Fin al Result [facility]ND [facility] ([place]) 1 [facility] [place] [address] * POCT glucose (04/13/2025 3:15 AM CDT) Glucose, POC 159 70 - 199 mg/dL Comment:Glu2: RN/ Notified Blood 04/13/2025 3:15 AM CDT 04/13/2025 3:15 AM CDT Ivett Cummings MD LAB POCT ORDERABLES - DEV ICE Final Result Performing Organization Address City/[facility]/ZIP Co de Phone Number A[facility]ND [facility] ([place]) 1 [facility] [place] [address] * eGFR (04/13/2025 2:56 AM CDT) eGFR [...] LAB BLOOD ORDERABLES Final Result [facility]ND [facility] ([place]) 1 [facility] [place] [address] * Differential, auto (04/13/2025 2:56 AM CDT) [...] ORDERABLES Final Result [facility] ([place]) 1 [facility] [place] [address] * (ABNORMAL) CBC with auto differential (04/13/2025 [...] ORDERABLES Final Result ANAND [facility] ([place]) 1 [facility] [employer] [place] [address] * Basic metabolic panel (04/13/2025 2:56 AM [...] ORDERABLES Final Result ANAND [facility] ([place]) 1 [facility] [place] [address] * (ABNORMAL) POCT glucose (04/12/2025 8:21 PM CDT) Glucose, POC 212(H) 70 - 199 mg/dL Blood 04/12/2025 8:21 PM CDT 04/12/2025 8:21 PM CDT Ivett Cummings MD LAB POCT ORDERABLES - DEV ICE Final Result Performing Organization Address City/[facility]/ZIP Co de Phone Number ANAND [facility] ([place]) [address] [place] [address] [place] [address] * (ABNORMAL) POCT glucose (04/12/2025 4:23 PM CDT) Glucose, POC 203(H) 70 - 199 mg/dL Blood 04/12/2025 4:23 PM CDT 04/12/2025 4:23 PM CDT Ivett Cummings MD LAB POCT ORDERABLES - DEV ICE Final Result Performing Organization Address [facility] de Phone Number ANAND [facility] ([place]) [address] [place] [address] [place] [address] * Surgical pathology (04/12/2025 2:30 PM CDT) Tissue (Bone Fragment(s),) 04/12/2025 1:36 PM CDT Narrative PATHOLOGY [facility] ([place]) - 04/15/2025 10:17 AM CDT EPIC results best viewed via link to PDF [facility] Department of Pathology [address] [place] [id number] Note to Patients: This report may contain [...] Final Report Patient Name: JAZZY AYERS Address: [address] [place] [id number] Gender: M : 1970 (Age: 54) Service: Medical Location: [facility] Hospital #: [id number] Patient Type: [facility] Taken: 04/12/2025 Received: 04/12/2025 Accessioned: 04/12/2025 Reported: [...] determined by the Surgical Pathology Department at [facility] as part of an ongoing senior quality assurance analyst program and in compliance with federally mandated [...] characteristics determined by the Surgical Pathology Department [facility]. It has not been cleared or approved by the U. S. Food and Drug Administration. Note for decalcified specimens: This assay has not been validated on decalcified tissues. Results should be interpreted with caution given the possibility of false negativity on decalcified specimens Oliver THOMPSONM LAB PATHOLOGY ORDERABLES F inal Result Performing Organization Address City/[facility]/ZIP Co de Phone Number PATHOLOGY [facility] ([place]) 1 [place] [address] * POCT glucose (04/12/2025 1:49 PM CDT) Pathologist [facility] Glucose, POC 135 70 - 199 mg/dL Blood 04/12/2025 1:49 PM CDT 04/12/2025 1:49 PM CDT Ivett Cummings MD LAB POCT ORDERABLES - DEV ICE Final Result Performing Organization Address [facility]/ZIP Co de Phone Number CERNER [facility] ([place]) [address] [place] [address] Department [place] [address] * (ABNORMAL) Tissue aerobic and anaerobic culture and gram stain Bone Toe, first (04/12/2025 1:45 PM CDT) Pathologist [facility] Direct Specimen Exam Stain: No polymorphonuclear leukocytes seen. No organisms seen. Comment:Testing performed by : [facility], 1 [facility], [place]., [address] Report Final Report: Few Mixed microorganisms. Includes [...] allergic patients, please contact the laboratory at [phone] to request susceptibility testing * * * * * * * * * * * * * * * * * * * * Rare Proteus mirabilis (.) [facility]ND [facility] ([place]) Comment:Testing performed by : [facility], 1 [place]., [address] Organism STREPTOCOCCUS AGALACTIAE (GROUP B STREPTOCOCCI) [facility] ([place]) Organism PROTEUS MIRABILIS CE REY [facility] ([place]) Organism MIXED MICROORGANISMS. A[facility]ND [facility] ([place]) Bone (Toe, first) 04/12/2025 1:45 PM CDT 04/12/2025 6:23 PM CDT Narrative ANAND [facility] ([place]) - 04/16/2025 8:15 AM CDT Right first Metatarsal Testing performed by [facility] ([phone]) Specimens submitted from normally sterile body sites [...] GENERAL ORDERABLES Final Result ANAND WARRENN) 1 [facility] [place] [address] * POCT glucose (04/12/2025 12:25 PM CDT) Glucose, POC 152 70 - 199 mg/dL Blood 04/12/2025 12:2 5 PM CDT 04/12/2025 12:25 PM CDT Ivett Cummings MD LAB POCT ORDERABLES - DEV ICE Final Result ANAND LyonsCASCADE) 1 [facility] [place] [address] * POCT glucose (04/12/2025 7:35 AM CDT) Glucose, POC 177 70 - 199 mg/dL Blood 04/12/2025 7:35 AM CDT 04/12/2025 7:35 AM CDT Ivett Cummings MD LAB POCT ORDERABLES - DEV ICE Final Result Performing Organization Address City/[facility]/ZIP Co de Phone Number ANAND LyonsCASCADE) 1 [facility] [place] [address] * eGFR (04/12/2025 2:33 AM CDT) eGFR [...] NP LAB BLOOD ORDERABLES Final Resul t [facility] ([place]) 1 [facility] [place] [address] * Differential, auto (04/12/2025 2:33 AM CDT) [...] Final Resul t [facility] ([place]) 1 [facility] [place] [address] * (ABNORMAL) CBC with auto differential (04/12/2025 [...] ORDERABLES Final Result [facility] ([place]) 1 [facility] [place] [address] * Basic metabolic panel (04/12/2025 2:33 AM [...] LAB BLOOD ORDERABLES Final Result ANAND [facility] ([place]) 1 [facility] [place] [address] * POCT glucose (04/12/2025 1:56 AM CDT) Glucose, POC 198 70 - 199 mg/dL Blood 04/12/2025 1:56 AM CDT 04/12/2025 1:56 AM CDT Ivett Cummings MD LAB POCT ORDERABLES - DEV ICE Final Result Performing Organization Address City/[facility]/ZIP Co de Phone Number ANAND [facility] ([place]) 1 [facility] [place] [address] * POCT glucose (04/11/2025 8:21 PM CDT) Glucose, POC 154 70 - 199 mg/dL Blood 04/11/2025 8:21 PM CDT 04/11/2025 8:21 PM CDT Ivett Cummings MD LAB POCT ORDERABLES - DEV ICE Final Result A[facility]ND [facility] ([place]) 1 [facility] [place] [address] * POCT glucose (04/11/2025 4:54 PM CDT) Glucose, POC 194 70 - 199 mg/dL Blood 04/11/2025 4:54 PM CDT 04/11/2025 4:54 PM CDT Ivett Cummings MD LAB POCT ORDERABLES - DEV ICE Final Result A[facility]ND [facility] ([place]) 1 [facility] [place] [address] * POCT glucose (04/11/2025 11:46 AM CDT) Glucose, POC 140 70 - 199 mg/dL Blood 04/11/2025 11:4 6 AM CDT 04/11/2025 11:46 AM CDT Ivett Cummings MD LAB POCT ORDERABLES - DEV ICE Final Result ANAND [facility] ([place]) 1 [place] [address] * POCT glucose (04/11/2025 7:58 AM CDT) Glucose, POC 125 70 - 199 mg/dL Blood 04/11/2025 7:58 AM CDT 04/11/2025 7:58 AM CDT Ivett Cummings MD LAB POCT ORDERABLES - DEV ICE Final Result ANAND [facility] ([place]) 1 [place] [address] * eGFR (04/11/2025 2:57 AM CDT) eGFR [...] BLOOD ORDERABLES Final Resul t [facility] ([place]) 1 [facility] [place] [address] * Differential, auto (04/11/2025 2:57 AM CDT) [...] Final Resul t [facility] ([place]) 1 [facility] [place] [address] * (ABNORMAL) CBC with auto differential (04/11/2025 [...] ORDERABLES Final Result [facility] ([place]) 1 [facility] [place] [address] * Basic metabolic panel (04/11/2025 2:57 AM [...] LAB BLOOD ORDERABLES Final Result ANAND [facility] ([place]) 1 [facility] [place] [address] * POCT glucose (04/11/2025 1:52 AM CDT) Glucose, POC 165 70 - 199 mg/dL Blood 04/11/2025 1:52 AM CDT 04/11/2025 1:52 AM CDT us Ivett Cummings MD LAB POCT ORDERABLES - DEV ICE Final Result A[facility]ND [facility] ([place]) 1 [facility] [place] [address] * POCT glucose (04/10/2025 8:42 PM CDT) Glucose, POC 142 70 - 199 mg/dL Blood 04/10/2025 8:42 PM CDT 04/10/2025 8:42 PM CDT Ivett Cummings MD LAB POCT ORDERABLES - DEV ICE Final Result A[facility]ND [facility] ([place]) 1 [facility] [place] [address] * POCT glucose (04/10/2025 4:39 PM CDT) Glucose, POC 113 70 - 199 mg/dL Blood 04/10/2025 4:39 PM CDT 04/10/2025 4:39 PM CDT Ivett Cummings MD LAB POCT ORDERABLES - DEV ICE Final Result [facility] ([place]) 1 [facility] [place] [address] * POCT glucose (04/10/2025 12:04 PM CDT) Glucose, POC 138 70 - 199 mg/dL Blood 04/10/2025 12:0 4 PM CDT 04/10/2025 12:04 PM CDT Ivett Cummings MD LAB POCT ORDERABLES - DEV ICE Final Result [facility] ([place]) 1 [facility] [place] [address] * POCT glucose (04/10/2025 8:00 AM CDT) Glucose, POC 121 70 - 199 mg/dL Blood 04/10/2025 8:00 AM CDT 04/10/2025 8:00 AM CDT Ivett Cummings MD LAB POCT ORDERABLES - DEV ICE Final Result Performing Organization Address City/[facility] Co de Phone Number ANAND K[facility] ([place]) [address] [place] [address] [place] [address] * eGFR (04/10/2025 3:07 AM CDT) eGFR [...] BLOOD ORDERABLES Final Resul t [facility] ([place]) 1 [facility] [place] [address] * Differential, auto (04/10/2025 3:07 AM CDT) [...] Final Resul t [facility] ([place]) 1 [facility] [place] [address] * (ABNORMAL) CBC with auto differential (04/10/2025 [...] ORDERABLES Final Result [facility] ([place]) 1 [facility] [place] [address] * (ABNORMAL) Basic metabolic panel (04/10/2025 3:07 [...] LAB BLOOD ORDERABLES Final Result ANAND [facility] ([place]) 1 [facility] [place] [address] * POCT glucose (04/10/2025 1:48 AM CDT) Glucose, POC 186 70 - 199 mg/dL Blood 04/10/2025 1:48 AM CDT 04/10/2025 1:48 AM CDT us Cm Neumann Jr., MD LAB POCT ORDERABLES - DEVICE Final Result Performing Organization Address City/[facility]/ZIP Co de Phone Number ANAND [facility] ([place]) 1 [facility] [place] [address] * POCT glucose (04/09/2025 8:45 PM CDT) Glucose, POC 151 70 - 199 mg/dL Blood 04/09/2025 8:45 PM CDT 04/09/2025 8:45 PM CDT us Cm Neumann Jr., MD LAB POCT ORDERABLES - DEVICE Final Result Performing Organization Address City/[facility]/ZIP Co de Phone Number [facility] ([place]) 1 [facility] [place] [address] * (ABNORMAL) POCT glucose (04/09/2025 5:03 PM CDT) Glucose, POC 242(H) 70 - 199 mg/dL Blood 04/09/2025 5:03 PM CDT 04/09/2025 5:03 PM CDT us Cm Neumann Jr., MD LAB POCT ORDERABLES - DEVICE Final Result [facility] ([place]) 1 [facility] [place] [address] * US Arterial Doppler Lower Extremity Bilateral [...] Ira Alonzo M.D. FT: FT Report ID: [id number] Reading Location: [id number] Procedure Note Ira Davis MD - 04/09/2025 [...] Ira Alonzo M.D. FT: FT Report ID: [id number] Reading Location: [place] [address] us Bean John DPM IMG US PROCEDURES Final Result * POCT glucose (04/09/2025 12:08 PM CDT) Pathologist [facility] Glucose, POC 97 70 - 199 mg/dL Blood 04/09/2025 12:0 8 PM CDT 04/09/2025 12:08 PM CDT Cm Neumann Jr., MD LAB POCT ORDERABLES - DEVICE Final Result [facility] ([place]) 1 [facility] [place] [address] * eGFR (04/09/2025 8:24 AM CDT) [facility] eGFR >90 >=60 mL/min/1. 73 m2 Comment: [...] NP LAB BLOOD ORDERABLES Final Resul t [facility] ([place]) 1 [facility] Department of Laboratories [place], [place] [id number] * Differential, auto (04/09/2025 8:24 AM CDT) [...] Final Resul t ANAND [facility] ([place]) 1 [facility] [place] [address] * (ABNORMAL) CBC with auto differential (04/09/2025 [...] RDW SD 38.5 35.7 - 48.1 fL [facility] ([place]) NRBC abs 0.00 0.00 - 0.01 K/cumm [facility] ([place]) Blood 04/09/2025 8:24 AM CDT 04/09/2025 8:52 AM CDT Oliver Espinosa DPM LAB BLOOD ORDERABLES Final Result [facility] ([place]) 1 [facility] [place] [address] * Vancomycin level trough (04/09/2025 8:24 AM CDT) Vancomycin trough 11.0 10.0 - 20.0 mcg/mL [facility] ([place]) Blood 04/09/2025 8:24 AM CDT 04/09/2025 8:52 AM CDT Courtney Brower [employer] LAB BLOOD ORDERABLES Final Resul t [facility]ND [facility] ([place]) 1 [facility] [place] [address] * Basic metabolic panel (04/09/2025 8:24 AM CDT) Sodium 140 135 - 145 mmol/L [facility] ([place]) Potassium, pl 4.0 3.3 - 4.9 mmol/L [facility] ([place]) Chloride 102 97 - 110 mmol/L [facility] ([place]) CO2 23 22 - 32 mmol/L [facility] ([place]) Anion gap 15 2 - 15 mmol/L [facility] ([place]) BUN 18 6 - 25 mg/dL [facility] ([place]) Creatinine 0.82 0.80 - 1.30 mg/dL [facility] ([place]) Glucose 161 70 - 199 mg/dL [facility] ([place]) Comment: Interpretive Data Fasting glucose >/= [...] 2022. Calcium 9.2 8.5 - 10.3 mg/dL [facility] ([place]) Blood 04/09/2025 8:24 AM CDT 04/09/2025 10:05 AM CDT us Oliver Espinosa DPM LAB BLOOD ORDERABLES Final Result Performing Organization Address City/[facility]/ZIP Co de Phone Number [facility] ([place]) 1 [facility] [place] [address] * POCT glucose (04/09/2025 7:52 AM CDT) Glucose, POC 192 70 - 199 mg/dL Blood 04/09/2025 7:52 AM CDT 04/09/2025 7:52 AM CDT us Cm Neumann Jr., MD LAB POCT ORDERABLES - DEVICE Final Result [facility] ([place]) 1 [facility] [place] [address] * POCT glucose (04/09/2025 2:02 AM CDT) Glucose, POC 175 70 - 199 mg/dL Blood 04/09/2025 2:02 AM CDT 04/09/2025 2:02 AM CDT us Cm Neumann Jr., MD LAB POCT ORDERABLES - DEVICE Final Result Performing Organization Address City/[facility]/ZIP Co de Phone Number ANAND [facility] ([place]) 1 [facility] [place] [address] * POCT glucose (04/08/2025 8:42 PM CDT) Glucose, POC 126 70 - 199 mg/dL Blood 04/08/2025 8:42 PM CDT 04/08/2025 8:42 PM CDT us Cm Neumann Jr., MD LAB POCT ORDERABLES - DEVICE Final Result Performing Organization Address [facility] de Phone Number ANAND K[facility] ([place]) 1 [facility] [place] [address] * (ABNORMAL) POCT glucose (04/08/2025 4:26 PM CDT) Glucose, POC 222(H) 70 - 199 mg/dL Blood 04/08/2025 4:26 PM CDT 04/08/2025 4:26 PM CDT Cm Neumann Jr., MD LAB POCT ORDERABLES - DEVICE Final Result Performing Organization Address [facility] Co de Phone Number ANAND [facility] ([place]) 1 [facility] [place] [address] * MRI Foot Right W WO Contrast [...] Manny Haddad M.D. JA: ELIO Report ID: [id number] Reading Location: [place] [address] Procedure Note Manny Haddad MD - 04/08/2025 [...] Articulations: Mild arthritic changes midfoot. Mild arthritic [id number] metatarsophalangeal articulation. Normal anatomic alignment. Soft Tissues: [...] Manny Haddad M.D. JA: ELIO Report ID: [id number] Reading Location: [place] [address] Courtney Brower [employer]PER[employer] IMG MRI PROCEDURES Final Result * POCT glucose (04/08/2025 11:50 AM CDT) Glucose, POC 101 70 - 199 mg/dL Blood 04/08/2025 11:5 0 AM CDT 04/08/2025 11:50 AM CDT Cm Neumann Jr., MD LAB POCT ORDERABLES - DEVICE Final Result Performing Organization Address [facility]/ZIP Co de Phone Number ANAND [facility] ([place]) 1 [facility] [place] [address] * (ABNORMAL) POCT glucose (04/08/2025 7:56 AM CDT) Glucose, POC 223(H) 70 - 199 mg/dL Blood 04/08/2025 7:56 AM CDT 04/08/2025 7:56 AM CDT Cm Neumann Jr., MD LAB POCT ORDERABLES - DEVICE Final Result Performing Organization Address City/[facility]/ZIP Co de Phone Number ANAND [facility] ([place]) 1 [facility] [place] [address] * (ABNORMAL) Iron profile w/ IBC (04/08/2025 7:10 AM CDT) Iron 29(L) 50 - 150 mcg/dL [facility] ([place]) TIBC 135(L) 250 - 400 mcg/dL [facility] ([place]) Transferrin saturation 21 20 - 50 % [facility] ([place]) Blood 04/08/2025 7:10 AM CDT 04/08/2025 7:46 AM CDT Robert Arreola MD LAB BLOOD ORDERABLES Final Resu lt Performing Organization Address City/[facility] Co de Phone Number ANAND [facility] ([place]) [address] [place] [address] * (ABNORMAL) Hemoglobin A1c (04/08/2025 7:10 AM CDT) Pathologist [facility] Hgb A1C 14.8(H) 4.0 - 5.6 % [facility] ([place]) Estimated Average Glucose 378 mg/dL [facility] ([place]) Comment: The ADA recommends reporting an estimated Average Glucose (eAG) with all Hemoglobin A1c results using the equation derived from a study of 507 normal and diabetic adults. Minority populations were underrepresented and children were not included. (Diabetes Care 31:6541-8690, 2008). The eAG is not equivalent to a fasting glucose. Testing performed by: [facility], [facility], [place], [address] Blood 04/08/2025 7:10 AM CDT 04/08/2025 7:46 AM CDT Robert Arreola MD LAB BLOOD ORDERABLES Final Resu lt A[facility]ND [facility] ([place]) 1 [place] [address] * Folate (04/08/2025 7:10 AM CDT) Pathologist [facility] Folic acid 15.2 >=5.0 ng/mL Blood 04/08/2025 7:10 AM CDT 04/08/2025 7:46 AM CDT us Robert Arreola MD LAB BLOOD ORDERABLES Final Resu lt [facility]ND [facility] ([place]) 1 [facility] [place] [address] * Vitamin B12 (04/08/2025 7:10 AM CDT) Vitamin B12 392 230 - 1,250 pg/mL Blood 04/08/2025 7:10 AM CDT 04/08/2025 7:46 AM CDT Robert Arreola MD LAB BLOOD ORDERABLES Final Resu lt Performing Organization Address City/[facility] Co de Phone Number ANAND [facility] ([place]) 1 [facility] [place] [address] * eGFR (04/08/2025 3:03 AM CDT) eGFR [...] BLOOD ORDERABLES Final Resul t [facility]ND [facility] ([place]) 1 [facility] [place] [address] * Differential, auto (04/08/2025 3:03 AM CDT) Neutrophil abs 3.68 1.50 - 6.50 K/cumm Imm gran abs 0.02 0.00 - 0.10 K/cumm [facility] ([place]) Lymphocyte abs 2.18 0.80 - 3.30 K/cumm [facility] ([place]) Monocyte abs 0.62 0.20 - 0.80 K/cumm [facility] ([place]) Eosinophil abs 0.33 0.00 - 0.50 K/cumm [facility] ([place]) Basophil abs 0.02 0.00 - 0.10 K/cumm [...] Final Resul t [facility] ([place]) 1 [facility] [place] [address] * (ABNORMAL) CBC with auto differential (04/08/2025 [...] ORDERABLES Final Result A[facility]ND [facility] ([place]) 1 [facility] [employer] [place] [address] * (ABNORMAL) Basic metabolic panel (04/08/2025 3:03 [...] ORDERABLES Final Result A[facility]ND [facility] ([place]) 1 [facility] [employer] [place] [address] * (ABNORMAL) POCT glucose (04/08/2025 2:06 AM CDT) Glucose, POC 219(H) 70 - 199 mg/dL Blood 04/08/2025 2:06 AM CDT 04/08/2025 2:06 AM CDT Robert Arreola MD LAB POCT ORDERABLES - DEVICE Fi nal Result [facility] ([place]) 1 [facility] [place] [address] * (ABNORMAL) POCT glucose (04/07/2025 11:16 PM CDT) Glucose, POC 239(H) 70 - 199 mg/dL Blood 04/07/2025 11:1 6 PM CDT 04/07/2025 11:16 PM CDT Robert Arreola MD LAB POCT ORDERABLES - DEVICE Fi nal Result Performing Organization Address City/[facility] Co de Phone Number [facility] ([place]) 1 [facility] [place] [address] * (ABNORMAL) POCT glucose (04/07/2025 9:12 PM CDT) Glucose, POC 259(H) 70 - 199 mg/dL Blood 04/07/2025 9:12 PM CDT 04/07/2025 9:12 PM CDT Robert Arreola MD LAB POCT ORDERABLES - DEVICE Fi nal Result Performing Organization Address City/[facility] Co de Phone Number [facility] ([place]) 1 [facility] [place] [address] * (ABNORMAL) POCT glucose (04/07/2025 7:22 PM CDT) Glucose, POC 222(H) 70 - 199 mg/dL Blood 04/07/2025 7:22 PM CDT 04/07/2025 7:22 PM CDT Notinfile Unknown LAB POCT ORDERABLES - DEVICE F inal Result ANAND KING (TYRELL) 1 [facility] [place] [address] * Blood culture Blood (04/07/2025 6:40 PM CDT) Report Final Report: No growth Comment:Testing performed by : [facility], [address] [place]., [address] Blood 04/07/2025 6:40 PM CDT 04/07/2025 8:36 [...] performance characteristics have been verified by the [facility] Microbiology Laboratory. For questions about this culture, contact the Microbiology Laboratory at [phone]. Interpretive data was last revised on 24. Josselyn [facility] MICROBIOLOGY - GENERAL ORDE JAYDON Final Result ANAND KING ([place]) 1 [facility] [place] [address] * (ABNORMAL) POCT glucose (04/07/2025 4:51 PM CDT) Glucose, POC 419(H) 70 - 199 mg/dL Blood 04/07/2025 4:51 PM CDT 04/07/2025 4:51 PM CDT Notinfile Unknown LAB POCT ORDERABLES - DEVICE F inal Result Performing Organization Address City/[facility]/ZIP Co de Phone Number ANAND KING ([place]ASC[place]) 1 [facility] [employer] [place] [address] * XR Foot Right 3 or More [...] signed by Sourav LOCKE: CHUCKY Report ID: [id number] Reading Location: [id number] Procedure Note Sourav Addison MD - 04/07/2025 [...] signed by Sourav LOCKE: CHUCKY Report ID: [id number] Reading Location: [id number] us Steven [facility] IM XR PROCEDURE S [...] Sourav Addison M.D. KH: CHUCKY Report ID: [id number] Reading Location: [place] [address] Procedure Note Sourav Addison MD - 04/07/2025 EXAM DESCRIPTION: XR FOOT LEFT 3 OR MORE VIEWS REASON FOR STUDY: Large wound plantar aspect left foot, rule out osteo Patient is a pleasant 54-year-old presents emergency room for evaluationof wounds to feet. Right and left feet has chronic wound inflammation andconcern for infection. Patient is a diabetic but states he [facility] [place] Unknown what his blood sugar is. History [...] signed by Sourav LOCKE: CHUCKY Report ID: [id number] Reading Location: [id number] Franklynamerica Mcdaniel Ryder [facility] IMG XR PROCEDURE [...] signed by Sourav LOCKE: CHUCKY Report ID: [id number] Reading Location: [id number] Procedure Note Sourav Addison MD - 04/07/2025 [...] Sourav Addison M.D. KH: CHUCKY Report ID: [id number] Reading Location: [place] [address] us Steven [facility] IM[facility] US PROCEDURE S Final Result * Sepsis Lactate w/ Reflex (04/07/2025 2:35 PM CDT) Sepsis Lactate 0.9 0.7 - 2.0 mmol/L Blood 04/07/2025 2:35 PM CDT 04/07/2025 2:37 PM CDT us Josselyn [facility] LAB BLOOD ORDERABLES Final Resu lt ANAND [facility] ([place]) 1 [facility] [place] [address] * eGFR (04/07/2025 2:35 PM [...] BLOOD ORDERABLES Final Resu lt ANAND [facility] ([place]) 1 [facility] [place] [address] * (ABNORMAL) Differential, auto (04/07/2025 2:35 PM CDT) Neutrophil abs 8.60(H) 1.50 - 6.50 K/cumm Imm gran abs 0.03 0.00 - 0.10 K/cumm [facility] ([place]) Lymphocyte abs 1.19 0.80 - 3.30 K/cumm [facility] ([place]) Monocyte abs 0.82(H) 0.20 - 0.80 K/cumm [facility] ([place]) Eosinophil abs 0.10 0.00 - 0.50 K/cumm [facility] ([place]) Basophil abs 0.03 0.00 - 0.10 K/cumm [facility] ([place]) Neutrophil pct 79.9 % [facility] R [facility] ([place]) Comment: Interpretive Data Percent cell count reference [...] Final Resu lt ANAND [facility] ([place]) 1 [facility] [place] [address] * (ABNORMAL) CBC with auto differential (04/07/2025 [...] BLOOD ORDERABLES Final Resu lt ANAND KING ([place]) 1 [facility] [place] [address] * Blood culture Blood (04/07/2025 2:35 PM CDT) Report Final Report: No growth Comment:Testing performed by : [facility], [address] [place]., [address] Blood 04/07/2025 2:35 PM CDT 04/07/2025 8:36 [...] performance characteristics have been verified by the [facility] Microbiology Laboratory. For questions about this culture, contact the Microbiology Laboratory at [phone]. Interpretive data was last revised on 24. us Josselyn [facility] MICROBIOLOGY - GENERAL ORDGrisel INTERIANO Final Result ANAND KING (TY[place]LL) 1 [facility] [place] [address] * (ABNORMAL) Comprehensive metabolic panel (04/07/2025 2:35 [...] [facility] ([place]) Comment: Critical Result called by [email or web address] at 2025-04-07 15:01:55. Result Read Back by [...] LAB BLOOD ORDERABLES Final Resu lt ANAND [facility] ([place]) 1 [facility] [place] [address] * (ABNORMAL) CRP (acute phase) (04/07/2025 2:33 PM CDT) CRP 98.7(H) <=10.0 mg/L ANAND Sauceda ([place]) Blood 04/07/2025 2:33 PM CDT 04/07/2025 5:44 PM CDT us Steven [facility] LAB BLOOD ORDERA BLES Final Result Performing Organization Address [facility] Co de Phone Number ANAND [facility] ([place]) 1 [facility] [place] [address] * COLONOSCOPY (10/10/2021 9:12 AM POULTRY HANGER) Anatomical Region Laterality Modality Other Narrative Procedure Note Evon Arroyo MD - 10/10/2021 9:12 AM CST [facility]ive [facility] Patient Name: Jazzy Ayers Procedure Date: 10/10/2021 9:12 AM Date of : 1970 Admit Type: Outpatient Age: 51 Gender: Male Attending MD: Evon Arroyo M.D. Room: [facility] ENDOSCOPY ROOM 1 Note Status: Finalized Patient [...] under direct vision. The Pediatric Colonoscope PCF-H190L [id number] was introducedthrough the anus and advanced to [...] 9:12 AM Procedure Code(s): --- Professional --- 49473, Colonoscopy, flexible; with removal of tumor(s), polyp(s), or other lesion(s) by snare technique 97512, 59, Colonoscopy, flexible; with biopsy, single or multiple Diagnosis Code(s): --- Professional --- Z80.0, Family history of malignant neoplasm of digestive organs K63.5, Polyp of colon CPT copyright 2019 [employer]. All rights reserved. The codes documented in this report are preliminary and upon head of acquisitions reviewmay be revised to meet current compliance requirements. Recognized by the [employer] for promoting quality in endoscopy Evon Arroyo MD ENDOSCOPY PROCEDURES Final Result * Diabetic Eye Exam (06/07/2021) Historical Provider HEALTH MAINTENANCE Final Result from Last 3 Months or Most Recently Relevant to Health Maintenance Insurance [facility] Advance Directives For more information, please contact: [phone] * Full Code (Latest Code Status on File) Date Activated Date Inactivated Comments 04/07/2025 8:33 PM 04/19/2025 7:39 PM * Full Code Date Activated Date Inactivated Comments 10/10/2021 8:45 AM 10/10/2021 3:40 PM * Full Code Date Activated Date Inactivated Comments 10/10/2021 8:45 AM 10/10/2021 8:45 AM Care Teams Machine Zipper Trimmer Relationship Specialty Start Date End Date Dalton Mahoney MD [address] [place] [address] [place] [address] PCP - General Family Medicine 04/10/25 Diaz Khoury NP [address] [place] [address] DR ALANA GRIGSBY [address] [place] [id number] Internal Medicine 02/20/21 Diaz Khoury NP [address] [place] [address] DR ALANA GRIGSBY [address] [place] [address] Internal Medicine 06/10/17
--- OUTSIDE RECORDS SUMMARY | 2025-06-21 17:19 | XMS_ITS | Encounter Summary ---
Author Organization [facility] Address [address] [place] [address] Phone Care Team Providers Care Automation Qtp Tester Name Role Phone Diaz Khoury APRN, CABIN CREW Primary Care Provider + Lazaro Pagan MD Unavailable Reason for Visit * Reason Comments Medication Refill Encounter Details Date Type Department Care Team (Late st Contact Info) Description 05/03/2023 Refill [facility] - Endocrinology [facility] [address] [place] [address] Lazaro Pagan MD [address] [address] Medication Refill Social History Tobacco [...] on filedocumented in this encounter Care Teams Automation Qtp Tester Relationship Specialty Start Date End Date Diaz Khoury APRN, CNP [address] [place] [address] PCP - General Internal Medicine 02/21/16 Lazaro Pagan MD [address] [phone] Consulting Physician Endocrinology 03/20/22 10/12/24 documented as of this encounter
--- OUTSIDE RECORDS SUMMARY | 2025-06-21 17:19 | XMS_ITS | Clinical Summary ---
Author Organization [facility] Address [address] [place] [address] Phone Care Team Providers Care Capacitor Inspector Name Role Phone Diaz Khoury APRN, AUTOMATIC PROFILE SANDER OPERATOR Primary Care Provider + Allergies No known [...] 90 Tablet 3 3 Active Glucose Blood (Friendemicuch Verio) Strip USE TO TEST BLOOD SUGAR [...] Comments Blood Pressure 132/84 07/25/2022 2:06 PM WIND SITE MANAGER Pulse 66 07/25/2022 2:06 PM WIND SITE MANAGER Temperature 36.6 C (97.8 F) 07/25/2022 2:06 PM WIND SITE MANAGER Respiratory Rate 18 07/25/2022 2:06 PM WIND SITE MANAGER Oxygen Saturation 98% 07/25/2022 2:06 PM WIND SITE MANAGER Inhaled Oxygen Concentration - - Weight 136.5 kg (301 lb) 07/25/2022 2:06 PM WIND SITE MANAGER Height 198.1 cm (6' 6) 07/25/2022 2:06 PM WIND SITE MANAGER Body Mass Index 34.78 07/25/2022 2:06 PM WIND SITE MANAGER Plan of Treatment Health Maintenance Due Date [...] POCT GLYCOSYLATED HEMOGLOBIN Routine 07/25/2022 2:14 PM WIND SITE MANAGER Type 2 diabetes mellitus with diabetic polyneuropathy, with long-term current use of insulin (HCC) CMP (COMPREHENSIVE METABOLIC PANEL) STAT 01/10/2021 3:53 AM CDT from Last 3 Months or Most Recently Relevant to Health Maintenance Results * (ABNORMAL) POCT GLYCOSYLATED HEMOGLOBIN (07/25/2022 2:14 PM WIND SITE MANAGER) HGB-A1C 6.4(A) 4 - 6 Blood 07/25/2022 2:14 PM WIND SITE MANAGER us Lazaro Pagan MD POINT OF CARE TESTING (MANUAL) F inal Result * (ABNORMAL) CMP (Comprehensive Metabolic Panel) (01/10/2021 3:53 AM CDT) SODIUM 131(L) 136 - 144 mmol/L 01/10/2021 4:18 AM CDT [facility] POTASSIUM 3.6 3.5 - 5.1 mmol/L 01/10/2021 4:18 AM CDT [facility] CHLORIDE 98(L) 100 - 110 mmol/L 01/10/2021 4:18 AM CDT [facility] CO2, VENOUS 23 22 - 32 mmol/L 01/10/2021 4:18 AM CDT [facility] ANION GAP 13.6 8.0 - 20.0 mmol/L 01/10/2021 4:18 AM T [facility] GLUCOSE 223(H) 70 - 99 mg/dL 01/10/2021 4:18 AM CDT [facility] BUN 18 6 - 20 mg/dL 01/10/2021 4:18 AM T [facility] CREATININE, BLOOD 0.73(L) 0.80 - 1.30 mg/dL 01/10/2021 4:18 AM [facility] BUN/CREATININE RATIO 25(H) 12 - 20 ratio 01/10/2021 4:18 AM [facility] TOTAL PROTEIN 7.2 6.0 - 8.3 g/dL 01/10/2021 4:18 AM [facility] ALBUMIN 4.1 3.5 - 5.2 g/dL 01/10/2021 4:18 AM [facility] Comment: The colormetric methods used for the determination of Albumin may lead to falsely elevated test results in patients suffering from renal failure or insufficiency due to interference with other proteins. A/G RATIO 1.3 1.0 - 2.0 01/10/2021 4:18 AM [facility] CALCIUM 9.3 8.9 - 10.3 mg/dL 01/10/2021 4:18 AM T [facility] T BILI 0.9 <=1.2 mg/dL 01/10/2021 4:18 AM T [facility] SGOT (AST) 12 <=40 U/L 01/10/2021 4:18 AM T [facility] SGPT (ALT) 20 <=41 U/L 01/10/2021 4:18 AM CDT [facility] ALKALINE PHOSPHATASE 100 40 - 130 U/L 01/10/2021 4:18 AM CDT [facility] GFR, EST. NONAFRICAN >60 >=60 01/10/2021 4:18 AM CDT [facility] GFR, EST. >60 >=60 021 4:18 AM CDT [facility] Comment: Creatinine Clearance is the preferred criteria for selecting drug dose adjustments in renally impaired patients. The GFR is provided as additional pertinent clinical information. GFR is reported in mL/min/1.73 sq m. Blood Venipuncture / Unknown 01/10/2021 3:53 AM CDT 01/10/2021 4:05 AM CDT us Dylon Seymour MD CHEMISTRY ORDERABLES Laura l Result [facility] [address] [place] [address] from Last 3 Months or Most Recently [...] measures to stabilize the patient. Care Teams Capacitor Inspector Relationship Specialty Start Date End Date Diaz Khoury APRN, DANETTE [address] [place] [address] PCP - General Internal Medicine 02/21/16
[2025-06-21 17:37] LABS: Add Urine Microscopic? NO; Appearance Urine Clear (Clear); Glucose Urine UA Negative (Negative); Leukocyte Esterase Ur Negative LEU/UL (Negative); Nitrate Urine Negative (Negative); Specific Grav Ur 1.025 (1.001-1.035)
[2025-06-21] MEDS: HYDROcodone/acetaminophen (*CRX) 5-325 MG TABLET 1 TAB PO (17:40)
== END 2025-06-21 18:23 ==
PROVIDERS: Emergency Provider Nurse Practitioner Adult Health
DX: S39.012A Strain of muscle, fascia and tendon of lower back, initial encounter (principal); X58.XXXA Exposure to other specified factors, initial encounter
CPT/HCPCS: 72100; 81003; 99283; A9270